=== PATIENT | male | born 1975 | race African-American/Black ===

== ENCOUNTER 2017-09-05 14:10 | Inpatient (IN) | payer OTHER ==
--- NOTE | 2017-09-05 14:24 | PDOC ---
History of Present Illness - General Chief Complaint: Chest Pain Stated Complaint: COUGH Time Seen by Provider: 09/05/17 14:16 - History of Present Illness Initial Comments: 09/05/17 16:07 The patient is a 41 year old male with a history of HIV and positive PPD who presents from [facility] for possible tuberculosis infection. The patient reports a dry cough over the past few months that acutely worsened over the past 2 weeks. He then noticed increased SOB over the past week as well as associated night sweats. He presented to his PCP at [facility] today for evaluate and was found to have infiltrates concerning for tuberculosis on chest plain film and was sent to the ED per Dr. Quintero for admission for further management. He denies any current fevers, chills, chest pain, abdominal pain, nausea, vomiting, or changes with urination or bowel movements. Past History - Past Medical History Allergies/Adverse Reactions: Allergies Allergy/AdvReac Type Severity Reaction Status Date / Time peanuts Allergy Intermediate Rash Uncoded 09/05/17 14:14 Home Medications: Ambulatory Orders Atazanavir Sulfate/Cobicistat [Evotaz 300 mg-150 mg Tablet] 1 each PO DAILY #30 tablet 05/30/17 Emtricitabine/Tenofovir [Truvada -] 1 tab PO DAILY #30 tablet 05/30/17 Anemia: No Asthma: No Cancer: No Cardiac Disorders: No CVA: No COPD: No CHF: No Dementia: No Diabetes: No GI Disorders: No Disorders: No HTN: No Hypercholesterolemia: No Liver Disease: No Seizures: No Thyroid Disease: No - Suicide/Smoking/Psychosocial Hx Smoking History: Never smoked Have you smoked in the past 12 months: No Cigars Per Day: 0 Hx Alcohol Use: No Drug/Substance Use Hx: No Substance Use Type: None Hx Substance Use Treatment: No Review of Systems - Review of Systems Comments:: 09/05/17 16:11 Constitutional: Night sweats. No fevers, chills, fatigue, malaise HEENT: No Rhinorrhea, nasal congestion, visual changes Cardiovascular: No chest pain, syncope, palpitations, lightheadedness Respiratory: SOB, Dry cough. No Hemoptysis, Gastrointestinal: No Abdominal pain, Nausea, Vomiting, Constipation, Diarrhea, Melena Genitourinary: No Dysuria, Frequency, Urgency, Hesitancy, Hematuria, Flank pain Musculoskeletal: No Myalgia, arthralgia Skin: No rashes, bruising, pallor Neurologic: No Headache, Dizziness, Numbness, Weakness, or Tingling *Physical Exam - Vital Signs Last Vital Signs Temp Pulse Resp BP Pulse Ox 98.2 F 92 H 18 148/82 98 09/05/17 14:12 09/05/17 14:12 09/05/17 14:12 09/05/17 14:12 09/05/17 14:12 - Physical Exam Comments: 09/05/17 16:18 General Appearance: Nourished. No Apparent Distress HEENT: EOMI, WANDY. No Pharyngeal Erythema, Tonsillar Exudate, Tonsillar Erythema Neck: No Cervical Lymphadenopathy Respiratory/Chest: Lungs Clear, Normal Breath Sounds. No Crackles, Rales, Rhonchi, Wheezing Cardiovascular: Regular Rhythm, Regular Rate. No Murmur, Gallops, Rubs Gastrointestinal/Abdominal: Normal Bowel Sounds, Soft. No Guarding, Rebound, Tenderness Musculoskeletal: No CVA Tenderness Extremity: Normal Capillary Refill Integumentary: Normal Color, Dry, Warm Neurologic: Fully Oriented, Alert, Normal Mood/Affect, Normal Response, Medical Decision Making - Medical Decision Making 09/05/17 16:18 The patient is a 41 year old male with a history of HIV and positive PPD who presents from [facility] for possible tuberculosis infection. We discussed the case with Dr. Quintero who agrees with inpatient admission for evaluation of tuberculosis and has provided recommendations in his notes. Lab work was drawn outpatient and is currently in our EMR. We will not draw repeat labs here in the ED. We discussed the case with the hospitalist team who agreed to accept the patient for admission. We will follow Dr. Quintero's recommendations and appreciate his consultation. *DC/Admit/Observation/Transfer Diagnosis at time of Disposition: Cough, Tuberculosis - Discharge Dispostion Condition at time of disposition: Guarded Admit: Yes
--- NOTE | 2017-09-05 14:48 | PDOC ---
Attending Attestation - Resident Resident Name: Jose Moscoso - ED Attending Attestation I have performed the following: I have examined & evaluated the patient, The case was reviewed & discussed with the resident, I agree w/resident's findings & plan, Exceptions are as noted - HPI HPI: 41 yo M history HIV, prior positive PPD presenting with suspected TB infection. Patient was referred by [facility] for admission and further workup. He has been having recent dry cough, SOB for past few weeks, associated with night sweats. - Physicial Exam PE: GENERAL: Awake, alert, and fully oriented, in no acute distress HEAD: No signs of trauma EYES: PERRLA, EOMI, sclera anicteric, conjunctiva clear ENT: Auricles normal inspection, hearing grossly normal, nares patent, oropharynx clear without exudates. Moist mucosa. +Temporal wasting. NECK: Normal ROM, supple, no lymphadenopathy, JVD, or masses LUNGS: Breath sounds equal, clear to auscultation bilaterally. No wheezes, and no crackles HEART: Regular rate and rhythm, normal S1 and S2, no murmurs, rubs or gallops ABDOMEN: Soft, nontender, normoactive bowel sounds. No guarding, no rebound. No masses EXTREMITIES: Normal range of motion, no edema. No clubbing or cyanosis. No cords, erythema, or tenderness NEUROLOGICAL: Cranial nerves II through XII grossly intact. Normal speech, normal gait SKIN: Warm, Dry, normal turgor, no rashes or lesions noted. - Medical Decision Making Pt for admission for workup of possible TB. Appreciate ID recommendations. Will admit.
--- NOTE | 2017-09-05 15:28 | PN ---
Progress Note, Physician Chief Complaint: ID This 41 year old [place] male living in [place] sent form clinic for HIV for abnormal chest xray today. HIV pos since the doing well on HAART. T cells in clinic ove 300 and undectable less then 20 copies. He is adherant to med. History of treatment for latent TB in late in [place]. Recent travel to [place] 1 week. Now notes nonproductive couph night sweats weight loss recently ? fever. Also says gets some exertional dyspnea. NO pets drug use alcohol or smoking. LIves alone until recent whenhis spencer came to [place] from [place]. Chest xray today with bilateral interstitial infiltrates ? M TB - Objective Vital Signs: Vital Signs Temperature 98.2 F 09/05/17 14:12 Pulse Rate 92 H 09/05/17 14:12 Respiratory Rate 18 09/05/17 14:12 Blood Pressure 148/82 09/05/17 14:12 O2 Sat by Pulse Oximetry (%) 98 09/05/17 14:12 Constitutional: Yes: No Distress Eyes: Yes: WNL, Conjunctiva Clear Neck: Yes: WNL, Supple. No: Lymphadenopathy Cardiovascular: Yes: Regular Rate and Rhythm, S1, S2. No: Murmur Respiratory: Yes: WNL, Regular, CTA Bilaterally. No: Rales, Rhonchi Gastrointestinal: Yes: WNL, Normal Bowel Sounds, Soft. No: Splenomegaly, Tenderness, Tenderness, Epigastrium, Tenderness, Rebound Edema: No Problem List - Problems (1) Pneumonia Code(s): J18.9 - PNEUMONIA, UNSPECIFIED ORGANISM (2) HIV (human immunodeficiency virus infection) Code(s): Z21 - ASYMPTOMATIC HUMAN IMMUNODEFICIENCY VIRUS INFECTION STATUS Assessment/Plan Laboratory Tests 11/29/16 11/29/16 03/14/17 10:20 10:20 10:20 WBC Hgb Plt Count BUN Creatinine AST ALT Alkaline Phosphatase Absolute CD4 Jackson 302 L 259 L HIV-1 RNA (PCR) <20 03/14/17 05/30/17 05/30/17 10:20 12:15 12:15 WBC Hgb Plt Count BUN Creatinine AST ALT Alkaline Phosphatase Absolute CD4 Jackson 334 L HIV-1 RNA (PCR) <20 <20 09/05/17 09/05/17 12:20 12:20 WBC 3.8 L Hgb 12.3 Plt Count 349 BUN 15 Creatinine 1.4 H AST 23 ALT 26 Alkaline Phosphatase Pending Absolute CD4 Jackson HIV-1 RNA (PCR) Assessment Bilateral interstitial infiltrates ? TB History of Latent TB History of Strongyloides in past HIV stable on meds T cells tohigh for PCP Plan For now no antibiotics CT chest CRP Quant gold Isolation Sputum for PCR and AFB x3 Histo urine Ag Leg Ag Strongyloid Ab Leon MCKOY
--- NOTE | 2017-09-05 15:59 | HP ---
CHIEF COMPLAINT: cough, night sweats PCP: [facility] HISTORY OF PRESENT ILLNESS: 41 yr old man with HIV on HAART referred by pcp for suspected pna/TB on cxray this morning. Pt complains of dry cough for the past 1 year that has progressively worsened during the last two weeks. It is associated with night sweats and worsening exertional dyspnea. Any small effort and tossing in bed at night causes him to become tachypniec and feel like he is not getting enough air. cough has been instigated by laughing, talking, can occur at rest and worse with exertion. He was started on an "inhaler" and an "allergy medication" by his pcp since last year which initally helped with his cough, last used on tuesday with relief. He has been to [place] for 10-day visits in October 2016/dec 2016 and May 2017. he stayed in the city for the majority of the visit and went to the beach for one day. denies mosquito bites, animal exposure or known TB diagnosis in family or friends. He also notes several months of weight loss, he was seen by GI and told he did not have blood in his stool and no further wrk-up was required. Has a good appetite, no change in eating habits. ER course was notable for: (1) placed on isolation (2) CT w/o contrast (3)evaluated by Dr. 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 PAST MEDICAL HISTORY: HIV diagnosed in 's from likely female sexual partner PAST SURGICAL HISTORY: denies Social History: lives with , has no children Smoking:denies Alcohol: rarely, has 1 beer at the most Drugs: denies IVDU or any illicit substances Family History: mother with DM, denies family hx of HTN, cancers Allergies peanuts Allergy (Intermediate, Uncoded 09/05/17 14:14) Rash HOME MEDICATIONS: Home Medications Medication Instructions Recorded Atazanavir Sulfate/Cobicistat 1 each PO DAILY #30 tablet 05/30/17 [Evotaz 300 mg-150 mg Tablet] Emtricitabine/Tenofovir [Truvada -] 1 tab PO DAILY #30 tablet 05/30/17 REVIEW OF SYSTEMS CONSTITUTIONAL: Present: chills, weight change- unintentional loss Absent: fever, , diaphoresis, generalized weakness, malaise, loss of appetite, HEENT: Absent: rhinorrhea, nasal congestion, throat pain, throat swelling, difficulty swallowing, mouth swelling, ear pain, eye pain, visual changes CARDIOVASCULAR: Absent: chest pain, syncope, palpitations, irregular heart rate, lightheadedness , peripheral edema RESPIRATORY: Present: cough, shortness of breath, dyspnea with exertion, Absent: orthopnea, wheezing, stridor, hemoptysis GASTROINTESTINAL: Absent: abdominal pain, abdominal distension, nausea, vomiting, diarrhea, constipation, melena, hematochezia GENITOURINARY: Absent: dysuria, frequency, urgency, hesitancy, hematuria, flank pain, genital pain MUSCULOSKELETAL: Absent: myalgia, arthralgia, joint swelling, back pain, neck pain SKIN: Absent: rash, itching, pallor HEMATOLOGIC/IMMUNOLOGIC: Absent: easy bleeding, easy bruising, lymphadenopathy, frequent infections ENDOCRINE: Absent: unexplained weight gain, heat intolerance, cold intolerance NEUROLOGIC: Absent: headache, focal weakness or paresthesias, dizziness, unsteady gait, seizure, mental status changes, bladder or bowel incontinence PHYSICAL EXAMINATION Vital Signs - 24 hr 09/05/17 14:12 Temperature 98.2 F Pulse Rate 92 H Respiratory 18 Rate Blood Pressure 148/82 O2 Sat by Pulse 98 Oximetry (%) GENERAL: Awake, alert, in no acute distress. thin male HEAD: Normal with no signs of trauma. EYES: Pupils equal, round and reactive to light, extraocular movements intact, sclera anicteric, conjunctiva clear. No lid lag. EARS, NOSE, THROAT: oropharynx clear without exudates. Moist mucous membranes. NECK: Normal range of motion, supple without lymphadenopathy, JVD, or masses. LUNGS: Breath sounds equal, clear to auscultation bilaterally. No wheezes, and no crackles. No accessory muscle use. HEART: Regular rate and rhythm, normal S1 and S2 without murmur, rub or gallop. ABDOMEN: Soft, nontender, not distended, normoactive bowel sounds, no guarding, no rebound, no masses. No hepatomegaly or splenomegaly. MUSCULOSKELETAL: Normal range of motion at all joints. No bony deformities or tenderness. No CVA tenderness. UPPER EXTREMITIES: 2+ radial pulses, warm, well-perfused. No cyanosis. No clubbing. No peripheral edema. LOWER EXTREMITIES: 2+ dp pulses, warm, well-perfused. No calf tenderness. No peripheral edema. NEUROLOGICAL: Cranial nerves II-XII intact. Normal speech. Normal gait. PSYCHIATRIC: Cooperative. Good eye contact. Appropriate mood and affect. SKIN: Warm, dry, normal turgor, no rashes or lesions noted, normal capillary refill. ASSESSMENT/PLAN: 41 yr old man with HIV on HAART referred by pcp due to abnormal cxy for work-up for pna or TB. #Cough - evaluated by Dr. Quintero, work-up for TB pending, defer abx for now - chest CT without contrast - urine legionella/strep, histoplasma, quantiferon gold,strongiloides - sputum culture for AFB, creactive protein levels - airborne precautions for TB #HIV - continue evotaz and truvada #Diet: regular #DVT: encourage ambulation, hep tid Visit type - Emergency Visit Emergency Visit: Yes ED Registration Date: 09/05/17 Care time: The patient presented to the Emergency Department on the above date and was hospitalized for further evaluation of their emergent condition. - New Patient This patient is new to me today: Yes Date on this admission: 09/05/17 - Critical Care Critical Care patient: No
--- NOTE | 2017-09-05 18:34 | PN ---
Teaching Attending Note Name of Resident: Patrick Arnago ATTENDING PHYSICIAN STATEMENT I saw and evaluated the patient. I reviewed the resident's note and discussed the case with the resident. I agree with the resident's findings and plan as documented. SUBJECTIVE: This is a 41 year old man with a history of HIV who was sent to the ER from [facility] for evaluation of an abnormal CXR which showed bilateral interstitial infiltrates. He reports having a worsening non-productive cough, SOB with exertion, weight loss and night sweats. He was previously treated for latent TB ~ 20 yrs ago. He has a history of Strongyloides. He has been to [place] 3 times in the past year. In May, CD4 was 334 and viral load < 20. OBJECTIVE: Vital Signs Period Temp Pulse Resp BP Sys/Chacon Pulse Ox Last 24 Hr 98.2 F 92 18 148/82 98 HEART: S1S2, RRR LUNGS: Clear ABDOMEN: Soft, non-tender, non-distended, normal BS EXTREMITIES: No edema Home Medications Medication Instructions Recorded Emtricitabine/Tenofovir [Truvada -] 1 tab PO DAILY #30 tablet 05/30/17 Atazanavir Sulfate/Cobicistat 1 tab PO DAILY 09/05/17 [Evotaz 300 mg-150 mg Tablet] ASSESSMENT AND PLAN: This is a 41 year old man with a history of HIV, latent TB, Strongyloides who was presented to the ER from the [facility] because of an abnormal CXR showing bilateral interstitial infiltrates associated with night sweats, weight loss, cough and dyspnea on exertion.. 1. Possible pneumonia, possible pulmonary TB - Has cough, night sweats, weight loss, dyspnea on exertion - Has history of latent TB (treated 20 years ago) - ID consult appreciated - Chest CT - C-RP, quantiferon gold, sputum AFB, urine Legionella Ag, Strongyloides Ab, urine Histoplasma Ag ordered - Will hold antibiotics until results of CT available 2. HIV - Continue Truvada, Evotaz
[2017-09-05] MEDS: HEPARIN NA (PORCINE) 5,000 UNITS/ML 1ML VIAL SQ SCH (23:05)
[2017-09-06] MEDS ORDERED: HEPARIN NA (PORCINE) 5,000 UNITS/ML 1ML VIAL ONE (06:13)
[2017-09-06] MEDS: HEPARIN NA (PORCINE) 5,000 UNITS/ML 1ML VIAL SQ SCH ×3 (06:15→22:00)
[2017-09-06] MEDS: EMTRICITABINE 200MG/TENOFOVIR 300MG PO SCH (09:49)
[2017-09-06] MEDS ORDERED: PATIENT'S OWN MEDICATION (NON-FORMULARY) (Atazanavir Sulfate/Cobicistat [Evotaz 300 Mg-150 PO SCH (10:00)
--- NOTE | 2017-09-06 10:01 | PN ---
Physical Exam: INFECTIOUS DISEASE SUBJECTIVE: Patient states that he spit saliva into a collecting cup (?possibly sent to lab) but did not cough and expectorate any sputum. Doing well. No fevers , chills. Not coughing. OBJECTIVE: Vital Signs Period Temp Pulse Resp BP Sys/Chacon Pulse Ox Last 24 Hr 97.9 F-98.2 F 83-89 16-18 104-138/52-78 96-99 GEN: AAOx3, NAD PERRLA: EOMI, PERRLA CV: S1, S2, RRR, no murmur LUNG: CTABL posterior and anterior ABD: Soft, NT, ND, normoactive BS MSK: No edema, no erythema Active Medications Generic Name Dose Route Start Last Admin Trade Name Freq PRN Reason Stop Dose Admin Emtricitabine/Tenofovir 1 tab 09/06/17 10:00 09/06/17 09:49 Truvada PO Not Given DAILY SINDY Heparin Sodium (Porcine) 5,000 unit 09/05/17 22:00 09/06/17 06:15 Heparin - SQ 5,000 unit TID SINDY Administration Non-Formulary Medication 1 each 09/06/17 10:00 Atazanavir Sulfate/Cobicistat [Evotaz 300 Mg-150 Mg Tablet] PO DAILY SINDY Microbiology 09/05/17 16:40 Urine For Antigen Detection Legionella Antigen - Final - NEGATIVE 09/05/17 16:40 Urine For Antigen Detection Streptococcus pneumoniae Antigen (M - Final - NEGATIVE ASSESSMENT/PLAN: # Bilateral Interstitial Infiltrates - ? active TB - History of Latent TB, treated in - CT chest shows bilateral infiltrates + cavitary lesion, ?TB - Patient unable to cough up sputum, consulted Pulmonary for possible bronch - AFB probe ordered - F/u Quantiferon Gold - F/u Strongyloides Ab - Continue respiratory isolation - For now no abx Discussed w/ Dr Alan, will follow. Ita Snowden MD - PGY1 Infectious Disease Visit type - Emergency Visit Emergency Visit: No - New Patient This patient is new to me today: No - Critical Care Critical Care patient: No
[2017-09-06 10:56] VITALS: BMI 19.3
[2017-09-06] MEDS ORDERED: FLU VACCINE QUAD 60 MCG/0.5 ML (MDV 17-18) IM ONE (10:56)
--- NOTE | 2017-09-06 12:08 | CON.PULM ---
Consult Consult Specialty:: PULMONARY Referred by:: Dr. Quintero Reason for Consultation:: pneumonia - History of Present Illness Chief Complaint: cough, shortness of breath History of Present Illness: 41yo male with h/o HIV, latent TB who was admitted with worsening shortness of breath and dry cough x 2 weeks. His cough is nonproductive. He denies any chest pain or palpitations. No subjective fevers or chills but has been experiencing night sweats. Endorses a 5 lb weight loss in the past year. Compliant with his retroviral treatments. He was PPD positive in 1998, treated with a 9 month course and has had annual CXR since then reportedly negative. He was in [place] last in October. Denies any sick contacts. 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 - History Source History Provided By: Patient, Medical Record Limitations to Obtaining History: No Limitations - Past Medical History Infectious Disease: Yes: HIV - Alcohol/Substance Use Hx Alcohol Use: No - Smoking History Smoking history: Never smoked Have you smoked in the past 12 months: No Home Medications - Allergies Allergies/Adverse Reactions: Allergies Allergy/AdvReac Type Severity Reaction Status Date / Time No Known Allergies Allergy Verified 09/05/17 16:49 - Home Medications Home Medications: Ambulatory Orders Emtricitabine/Tenofovir [Truvada -] 1 tab PO DAILY #30 tablet 05/30/17 Atazanavir Sulfate/Cobicistat [Evotaz 300 mg-150 mg Tablet] 1 tab PO DAILY 09/05 Family Disease History - Family Disease History Family Disease History: Diabetes: Grandparent (mat gma hx dm), Mother ( otherwise a&w), Other: Grandparent, Father (dec'd age 74 prostate ca), Brother ( 5 a&w), Sister (5 a&w) Review of Systems - Review of Systems Constitutional: reports: Night Sweats, Unintentional Wgt. Loss. denies: Chills , Fever Eyes: denies: Recent Change in Vision HENT: denies: Nasal Congestion, Throat Pain Neck: denies: Stiffness, Tenderness Cardiovascular: reports: Shortness of Breath. denies: Chest Pain, Edema, Palpitations Respiratory: reports: Cough, SOB on Exertion. denies: Hemoptysis, Wheezing Gastrointestinal: denies: Abdominal Pain, Nausea, Vomiting Genitourinary: denies: Dysuria, Hematuria Neurological: denies: Dizziness, Headache Endocrine: reports: Unexplained Weight Loss Physical Exam Vital Sings: Vital Signs Temperature 98.4 F 09/06/17 10:00 Pulse Rate 85 09/06/17 10:49 Respiratory Rate 18 09/06/17 10:49 Blood Pressure 102/72 09/06/17 10:49 O2 Sat by Pulse Oximetry (%) 98 09/06/17 10:49 Constitutional: Yes: Calm Eyes: Yes: Conjunctiva Clear, EOM Intact HENT: Yes: Atraumatic, Normocephalic Neck: Yes: Supple, Trachea Midline Cardiovascular: Yes: Regular Rate and Rhythm Respiratory: Yes: Regular, CTA Bilaterally ...Clubbing: No Gastrointestinal: Yes: Normal Bowel Sounds, Soft. No: Tenderness Edema: No Neurological: Yes: Alert, Oriented Imaging - Results Chest X-ray: Report Reviewed, Image Reviewed Cat Scan: Report Reviewed, Image Reviewed (multilobar infiltrates/consolidations ) Problem List - Problems (1) Pneumonia Code(s): J18.9 - PNEUMONIA, UNSPECIFIED ORGANISM (2) HIV (human immunodeficiency virus infection) Code(s): Z21 - ASYMPTOMATIC HUMAN IMMUNODEFICIENCY VIRUS INFECTION STATUS Assessment/Plan Pneumonia r/o TB HIV - sputum AFB if he can produce - quantiferon gold - send CD4 count, viral load - scheduled for bronchoscopy with BAL/TBBx tomorrow at 1:30PM - NPO after midnight - hold AM heparin - discussed with pt and at bedside, all questions answered Thank you for this consult David Mariano MD
--- NOTE | 2017-09-06 12:41 | PN ---
Teaching Attending Note Name of Resident: Ita Snowden ATTENDING PHYSICIAN STATEMENT I saw and evaluated the patient. I reviewed the resident's note and discussed the case with the resident. I agree with the resident's findings and plan as documented. SUBJECTIVE: awake, alert breathing non-labored cachectic OBJECTIVE: cor S1S2 lungs clear abdomen soft, non tender no edema ASSESSMENT AND PLAN: Bilateral pneumonitis Cavitary lung disease HIV + Await sputum AFB, Quantiferon, Histo ag For bronchoscopy am
--- NOTE | 2017-09-06 14:30 | PN ---
Physical Exam: SUBJECTIVE: Patient seen and examined at bedside, has chronic non productive cough, but enies any chest pain, sob, N/V/D/C. he is hIV positive and was sent due to atelectasis on his cXr, he has a history of TB treated and recent travel out of country to [facility]. he has lost 5 pound within last year, unintensional, 2 weeks hisoty of nigh sweat, but denies any current fever, chills. OBJECTIVE: Vital Signs Period Temp Pulse Resp BP Sys/Chacon Pulse Ox Last 24 Hr 97.9 F-98.4 F 73-89 16-18 102-138/52-78 96-99 GENERAL: The patient is awake, alert, and fully oriented, in no acute distress. HEAD: Normal with no signs of trauma. EYES:conjunctiva clear. No ptosis. ENT: moist mucous membranes. LUNGS: Breath sounds equal, clear to auscultation bilaterally, no wheezes, no crackles, no accessory muscle use. HEART: Regular rate and rhythm, S1, S2 without murmur, rub or gallop. ABDOMEN: Soft, nontender, nondistended, normoactive bowel sounds, no guarding, no rebound. EXTREMITIES: warm, well-perfused, no edema. NEUROLOGICAL: Good mentation PSYCH: Normal mood, normal affect. SKIN: Warm, dry, no rashes or lesions noted Laboratory Results - last 24 hr 09/05/17 09/06/17 16:30 05:55 C-Reactive Protein 3.8 H 3.1 H D Active Medications Generic Name Dose Route Start Last Admin Trade Name Freq PRN Reason Stop Dose Admin Emtricitabine/Tenofovir 1 tab 09/06/17 10:00 09/06/17 09:49 Truvada PO Not Given DAILY [facility] Heparin Sodium (Porcine) 5,000 unit 09/05/17 22:00 09/06/17 06:15 Heparin - SQ 5,000 unit TID [facility] Administration Non-Formulary Medication 1 each 09/06/17 10:00 Atazanavir Sulfate/Cobicistat [Evotaz 300 Mg-150 Mg Tablet] PO DAILY [facility] Microbiology 09/06/17 17:50 Sputum - Expectorated AFB Smear Concentration - Preliminary 09/06/17 17:50 Sputum - Expectorated Direct Acid Fast Bacilli Smear - Final 09/06/17 17:50 Sputum - Expectorated Mycobacterial Culture - Preliminary 09/07/17 12:30 Serum Cryptococcal Antigen - Preliminary 09/05/17 16:40 Urine For Antigen Detection Legionella Antigen - Final 09/05/17 16:40 Urine For Antigen Detection Streptococcus pneumoniae Antigen (M - Final ASSESSMENT/PLAN: This is a 41 year old man with a history of HIV, latent TB, Strongyloides who was presented to the ER from the [facility] because of an abnormal CXR showing bilateral interstitial infiltrates associated with night sweats, weight loss, cough and dyspnea on exertion.. 1. Possible pneumonia, possible pulmonary TB - Has cough, night sweats, weight loss, dyspnea on exertion - Has history of latent TB (treated 20 years ago) - ID consult appreciated - Chest CT - C-RP, quantiferon gold, sputum AFB, urine Legionella Ag, Strongyloides Ab, urine Histoplasma Ag ordered - Will hold antibiotics until results of CT available 2. HIV - Continue Truman Vergara #DVT: encourage ambulation, hep tid # Dispo - Admit to med surg Visit type - Emergency Visit Emergency Visit: Yes ED Registration Date: 09/05/17 Care time: The patient presented to the Emergency Department on the above date and was hospitalized for further evaluation of their emergent condition. - New Patient This patient is new to me today: Yes Date on this admission: 09/07/17 - Critical Care Critical Care patient: No - Discharge Referral Referred to [facility] Med P.C.: No
--- NOTE | 2017-09-06 18:38 | PN ---
Teaching Attending Note Name of Resident: Ken Childers ATTENDING PHYSICIAN STATEMENT I saw and evaluated the patient. I reviewed the resident's note and discussed the case with the resident. I agree with the resident's findings and plan as documented. SUBJECTIVE:currently asymptomatic. states he had night sweats for the past 2 weeks but none last night. went to [facility] for routine screening where they did routine CXR and was sent here for the results. was in [place] in October , December and April each time for 10 days or less and is unaware if he was in contact with anyone with TB. claims medication compliance. denies CP, SOB, fever , cough, hemoptysis, N/V/C/D, rashes. has insignificant weight loss ( 5 lbs in past year) OBJECTIVE: Last Vital Signs Temp Pulse Resp BP Pulse Ox 98.4 F 85 18 102/72 98 09/06/17 10:00 09/06/17 10:49 09/06/17 10:49 09/06/17 10:49 09/06/17 14:00 General NAD, thin appearing male CV S1 S2 RRR no murmur/rub/gallop Lungs CTA B/L no wheezing/rales/rhonchi Abdomen soft NT/ND Extremiteis no pedal edema, no rashes ASSESSMENT AND PLAN: 41 yo M with PMH HIV, latent TB, Strongyloides who was presented to the ER from the [facility] because of an abnormal CXR showing bilateral interstitial infiltrates associated with night sweats, weight loss, cough and dyspnea on exertion.. 1. B/L pneumonitis- with cavitary lesion(2.3x1.7cm). concern for TB vs PCP. aspiration precautions. no sputum production. NPO for bronchoscopy in the AM. AFB, Quantiferon, Histoplasma, strongiloides. CRP elevated. ID and pulmonary on board. as per ID will hold abx at this time. 2. HIV- Continue Truman Vergara 3. DVT ppx- hep sq
--- NOTE | 2017-09-07 06:56 | PN ---
Physical Exam: SUBJECTIVE: Patient seen and examined at bedside. No acute events overnight. He denies any fever, chills, N/V/D/C. He denies cough. cp, sob. OBJECTIVE: Vital Signs Period Temp Pulse Resp BP Sys/Chacon Pulse Ox Last 24 Hr 98 F-99.5 F 67-91 18-20 95-116/55-77 98-98 GENERAL: The patient is awake, alert, and fully oriented, in no acute distress. HEAD: Normal with no signs of trauma. EYES: sclera anicteric, conjunctiva clear. ENT: moist mucous membranes. LUNGS: Breath sounds equal, clear to auscultation bilaterally, no wheezes, no crackles, no accessory muscle use. HEART: Regular rate and rhythm, S1, S2 without murmur, rub or gallop. ABDOMEN: Soft, nontender, nondistended, normoactive bowel sounds, no guarding, no rebound. EXTREMITIES: warm, well-perfused, no edema. NEUROLOGICAL: good mentation SKIN: Warm, dry, no rashes or lesions noted Active Medications Generic Name Dose Route Start Last Admin Trade Name Freq PRN Reason Stop Dose Admin Emtricitabine/Tenofovir 1 tab 09/06/17 10:00 09/06/17 09:49 Truvada PO Not Given DAILY [facility] Heparin Sodium (Porcine) 5,000 unit 09/05/17 22:00 09/06/17 22:00 Heparin - SQ Not Given TID [facility] Non-Formulary Medication 1 each 09/06/17 10:00 Atazanavir Sulfate/Cobicistat [Evotaz 300 Mg-150 Mg Tablet] PO DAILY [facility] CBC, BMP 09/07/17 05:18 09/07/17 05:18 Microbiology 09/06/17 17:50 Sputum - Expectorated AFB Smear Concentration - Preliminary 09/06/17 17:50 Sputum - Expectorated Direct Acid Fast Bacilli Smear - Final 09/06/17 17:50 Sputum - Expectorated Mycobacterial Culture - Preliminary 09/07/17 12:30 Serum Cryptococcal Antigen - Preliminary 09/05/17 16:40 Urine For Antigen Detection Legionella Antigen - Final 09/05/17 16:40 Urine For Antigen Detection Streptococcus pneumoniae Antigen (M - Final ASSESSMENT/PLAN: This is a 41 year old man with a history of HIV, latent TB, Strongyloides who was presented to the ER from the [facility] because of an abnormal CXR showing bilateral interstitial infiltrates associated with night sweats, weight loss, cough and dyspnea on exertion.. # Possible pneumonia, vs pulmonary TB vs PCP * Has cough, night sweats, weight loss, dyspnea on exertion * Has history of latent TB (treated 20 years ago) * ID consult appreciated * Chest CT caviatry lesion (2.3x1.7cm) * C-RP elevated * quantiferon gold, sputum AFB, urine Legionella Ag, Strongyloides Ab, urine Histoplasma Ag ordere * ID on the board they would like to start TB treatment after bronchoscopy * Bronchoscope was done today with washes of routine cx , AFB and fungus * F/U cytology and pathology # HIV * New HIV regimen * Truvada 1 daily * Tivicay ( Dolutegravir) 50mg day #DVT: * encourage ambulation, hep tid * # Dispo, * Admit to med- surg * continue droplet isolation Visit type - Emergency Visit Emergency Visit: Yes ED Registration Date: 09/05/17 Care time: The patient presented to the Emergency Department on the above date and was hospitalized for further evaluation of their emergent condition. - New Patient This patient is new to me today: Yes Date on this admission: 09/07/17 - Critical Care Critical Care patient: No
[2017-09-07 07:11] LABS: MCH 26.1 pg (25.7-33.7); MCHC 32.3 g/dl (32.0-35.9); MEAN CELL VOLUME 80.6 fl (80-96); MEAN PLT VOLUME 7.6 fl (7.5-11.1); PLATELET COUNT 331 K/MM3 (134-434); RDW 15.3 % (11.9-15.9)
[2017-09-07 07:58] LABS: ANION GAP 8 (8-16); CALCIUM 9.1 mg/dL (8.5-10.1); CO2 29 mmol/L (21-32); GLUCOSE,RANDOM 83 mg/dL (74-106)
[2017-09-07 08:02] LABS: CREATININE 1.3 mg/dL (0.7-1.3)
[2017-09-07] MEDS ORDERED: PT OWN MED DRAWER 7, Y5N ONE (09:08)
[2017-09-07] MEDS: EMTRICITABINE 200MG/TENOFOVIR 300MG PO SCH ×2 (09:31→18:29)
--- NOTE | 2017-09-07 11:59 | PN ---
Progress Note, Physician Chief Complaint: ID Work up for possible TB in progress Afebrile - Current Medication List Current Medications: Active Medications Emtricitabine/Tenofovir (Truvada) 1 tab PO DAILY [facility] Last Admin: 09/07/17 09:31 Dose: Not Given Heparin Sodium (Porcine) (Heparin -) 5,000 unit SQ TID [facility] Last Admin: 09/06/17 22:00 Dose: Not Given Non-Formulary Medication (Atazanavir Sulfate/Cobicistat [Evotaz 300 Mg-150 Mg Tablet]) 1 each PO DAILY [facility] - Objective Vital Signs: Vital Signs Temperature 98 F 09/07/17 09:44 Pulse Rate 78 09/07/17 09:44 Respiratory Rate 18 09/07/17 09:44 Blood Pressure 103/60 09/07/17 09:44 O2 Sat by Pulse Oximetry (%) 98 09/06/17 18:00 Constitutional: Yes: No Distress Neck: Yes: WNL, Supple Cardiovascular: Yes: Regular Rate and Rhythm, S1, S2. No: Murmur Respiratory: Yes: WNL, Regular, CTA Bilaterally Gastrointestinal: Yes: WNL, Normal Bowel Sounds, Soft. No: Tenderness, Rebound Labs: CBC, BMP 09/07/17 05:18 09/07/17 05:18 Problem List - Problems (1) Pneumonia Code(s): J18.9 - PNEUMONIA, UNSPECIFIED ORGANISM (2) HIV (human immunodeficiency virus infection) Code(s): Z21 - ASYMPTOMATIC HUMAN IMMUNODEFICIENCY VIRUS INFECTION STATUS Assessment/Plan Microbiology 09/05/17 16:40 Urine For Antigen Detection Legionella Antigen - Final 09/05/17 16:40 Urine For Antigen Detection Streptococcus pneumoniae Antigen (M - Final 09/06/17 17:50 Sputum - Expectorated AFB Smear Concentration - Preliminary 09/06/17 17:50 Sputum - Expectorated Mycobacterial Culture - Preliminary Laboratory Tests 09/05/17 09/05/17 09/07/17 16:30 16:30 05:18 WBC 4.0 Hgb 12.2 Plt Count 331 C-Reactive Protein 3.8 H Urine Histoplasma Ag Pending Strongyloides IgG Ab Pending Assessment Suspect pulmonary TB Work up pending Plan Quant gold BAL today with AFB PCR PROBE smear AFB and AFB culture Routine bacteria and fungal culture Cryptococcal Antigen Plan to start TB meds today INH 300mg daily Rifambutin 300 mg daily ( avoid rifampin drug drug interactions) Ethambutol 15mg /kg/day = 800mg PZA 25mg/kg/day = 1250mg B6 50mg /day NEW HIV regimen Truvada 1 daily Tivicay ( Dolutegravir) 50mg day Leon MCKOY
--- NOTE | 2017-09-07 12:22 | PN ---
Teaching Attending Note Name of Resident: Ken Childers ATTENDING PHYSICIAN STATEMENT I saw and evaluated the patient. I reviewed the resident's note and discussed the case with the resident. I agree with the resident's findings and plan as documented. SUBJECTIVE:asymptomatic. denies Cp, cough, fever, chills, N/V/C/D OBJECTIVE: Last Vital Signs Temp Pulse Resp BP Pulse Ox 98 F 78 18 103/60 98 09/07/17 09:44 09/07/17 09:44 09/07/17 09:44 09/07/17 09:44 09/07/17 10:00 General NAD, thin appearing male Lungs CTA B/L no wheezing/rales/rhonchi ASSESSMENT AND PLAN: 41 yo M with PMH HIV, latent TB, Strongyloides who was presented to the ER from the [facility] because of an abnormal CXR showing bilateral interstitial infiltrates associated with night sweats, weight loss, cough and dyspnea on exertion.. 1. B/L pneumonitis- with cavitary lesion(2.3x1.7cm). concern for TB vs PCP. aspiration precautions. no sputum production. NPO for bronchoscopy today. AFB, Quantiferon, Histoplasma, strongiloides. CRP elevated. ID and pulmonary on board. as per ID will hold abx at this time. 2. HIV- Continue Truman Vergara 3. DVT ppx- hep sq
[2017-09-07] MEDS ORDERED: LORazepam 2 MG/ML SDV VIAL IVPUSH ONE (12:45)
--- NOTE | 2017-09-07 12:58 | PN ---
Progress Note, Physician History of Present Illness: PULMONARY ALERT,NAD,-SOB,-COUGH - Current Medication List Current Medications: Active Medications Emtricitabine/Tenofovir (Truvada) 1 tab PO DAILY [facility] Last Admin: 09/07/17 09:31 Dose: Not Given Heparin Sodium (Porcine) (Heparin -) 5,000 unit SQ TID [facility] Last Admin: 09/06/17 22:00 Dose: Not Given Non-Formulary Medication (Atazanavir Sulfate/Cobicistat [Evotaz 300 Mg-150 Mg Tablet]) 1 each PO DAILY [facility] - Objective Vital Signs: Vital Signs Temperature 98 F 09/07/17 09:44 Pulse Rate 78 09/07/17 09:44 Respiratory Rate 18 09/07/17 09:44 Blood Pressure 103/60 09/07/17 09:44 O2 Sat by Pulse Oximetry (%) 98 09/07/17 10:00 Constitutional: Yes: Calm, Thin Eyes: Yes: WNL HENT: Yes: WNL Neck: Yes: WNL Cardiovascular: Yes: Regular Rate and Rhythm, S1, S2 Respiratory: Yes: CTA Bilaterally Gastrointestinal: Yes: Normal Bowel Sounds, Soft Extremities: Yes: WNL Edema: No Labs: CBC, BMP 09/07/17 05:18 09/07/17 05:18 Assessment/Plan Problem List - Problems (1) Pneumonia Code(s): J18.9 - PNEUMONIA, UNSPECIFIED ORGANISM (2) HIV (human immunodeficiency virus infection) Code(s): Z21 - ASYMPTOMATIC HUMAN IMMUNODEFICIENCY VIRUS INFECTION STATUS Assessment/Plan Pneumonia r/o TB HIV - sputum AFB - quantiferon gold - send CD4 count, viral load - flex bronchoscopy with bal,tbbx today DR CARRENO
--- NOTE | 2017-09-07 13:15 | PN ---
Physical Exam: SUBJECTIVE: Patient seen and examined. Denies fevers, chills, CP, SOB. Denies cough. Still unable to expectorate sputum. Bronch today afternoon OBJECTIVE: Vital Signs Period Temp Pulse Resp BP Sys/Chacon Pulse Ox Last 24 Hr 98 F-99.5 F 67-91 18-20 95-116/55-66 98-98 GEN: AAOx3, NAD PERRLA: EOMI, PERRLA CV: S1, S2, RRR, no murmur LUNG: CTABL posterior and anterior ABD: Soft, NT, ND, normoactive BS MSK: No edema, no erythema Active Medications Generic Name Dose Route Start Last Admin Trade Name Freq PRN Reason Stop Dose Admin Emtricitabine/Tenofovir 1 tab 09/06/17 10:00 09/07/17 09:31 Truvada PO Not Given DAILY [facility] Heparin Sodium (Porcine) 5,000 unit 09/05/17 22:00 09/06/17 22:00 Heparin - SQ Not Given TID [facility] Non-Formulary Medication 1 each 09/06/17 10:00 Atazanavir Sulfate/Cobicistat [Evotaz 300 Mg-150 Mg Tablet] PO DAILY [facility] CBC, BMP 09/07/17 05:18 09/07/17 05:18 Microbiology 09/05/17 16:40 Urine For Antigen Detection Legionella Antigen - Final 09/05/17 16:40 Urine For Antigen Detection Streptococcus pneumoniae Antigen (M - Final 09/06/17 17:50 Sputum - Expectorated AFB Smear Concentration - Preliminary 09/06/17 17:50 Sputum - Expectorated Mycobacterial Culture - Preliminary ASSESSMENT/PLAN: 41 year old Trin[place] M with PMHx of HIV on HAART, history of latent TB (treated in ), [place] presented to ER from HIV clinic due to abnormal CXR, found to have bilateral interstitial infiltrates with cavitary lesion. # Bilateral Interstitial Infiltrates w/ Cavitary lesion - high possibility of active TB vs less likely PNA - History of Latent TB, treated in - Going for Bronchoscopy today afternoon - Due to high risk for TB, will start treatment (Rifabutin, INH/B6, PZA, Ethambutol), dosage as per Dr. Quintero's note - Start new HIV regimen: Truvada QD + Tivicay 50mg QD - F/u Quantiferon Gold - Continue respiratory isolation Reviewed w/ Dr Quintero. Will follow. Ita Snowden MD - PGY1 Infectious Disease Visit type - Emergency Visit Emergency Visit: No - New Patient This patient is new to me today: No - Critical Care Critical Care patient: No - Discharge Referral Referred to [facility] Med P.C.: No
[2017-09-07 13:26] LABS: QFT TB AG - NIL VALUE 4.67; QUANT MITOGEN VALUE 7.92; QUANT NIL VALUE 0.06; QUANT TB AG VALUE 4.73
--- NOTE | 2017-09-07 15:16 | PROC ---
Procedure Note Procedure: BRONCHOSCOPY NOTE After discussing the risks and benefits of the procedure including bleeding and pneumothorax, informed consent was obtained. Pt was placed under general anesthesia and intubated with size 8.0 ETT by anesthesia. JNS Towers video bronchoscope was passed via the ETT and the airways were examined down to the subsegmental level. The elkin was sharp, there were no endobronchial lesions noted in either lung. The left upper lobe lingular segment was brushed with a cytology brush, multiple transbronchial biopsies were taken with forceps under fluoroscopy and bronchoalveolar washes were lavaged. Bronchoscope then withdrawn and procedure terminated. No immediate complications. Pre-op Dx: r/o TB Post-op Dx: same Plan: - f/u washes for routine culture, AFB and fungus - f/u cytology and pathology - further recommendations pending above David Mariano MD
[2017-09-07] MEDS ORDERED: ONDANSETRON 4 MG/2 ML VIAL IVPUSH PRN (15:28)
[2017-09-07] MEDS ORDERED: LACTATED RINGERS SOLUTION 1,000 ML IV SCH (15:30)
--- NOTE | 2017-09-08 06:47 | PN ---
Physical Exam: SUBJECTIVE: Patient seen and examined at bedside. had low blood pressure since the procedure yesterday. He denies any lightheadedness, dizziness, palpitation, he denies any N/V/D/C. denies fever, chills , cough, cp, sob. OBJECTIVE: Vital Signs Period Temp Pulse Resp BP Sys/Chacon Pulse Ox Last 24 Hr 97.4 F-98.4 F 68-88 16-28 88-139/49-99 97-99 GENERAL: The patient is awake, alert, and fully oriented, in no acute distress. HEAD: Normal with no signs of trauma. EYES: sclera anicteric, conjunctiva clear. ENT: moist mucous membranes. LUNGS: Breath sounds equal, clear to auscultation bilaterally, no wheezes, no crackles, no accessory muscle use. HEART: Regular rate and rhythm, S1, S2 without murmur, rub or gallop. ABDOMEN: Soft, nontender, nondistended, normoactive bowel sounds, no guarding, no rebound EXTREMITIES: warm, well-perfused, no edema. NEUROLOGICAL: good mentation SKIN: Warm, dry, normal turgor, no rashes or lesions noted Laboratory Results - last 24 hr 09/05/17 09/07/17 09/07/17 22:50 05:18 05:18 WBC 4.0 RBC 4.69 Hgb 12.2 Hct 37.8 MCV 80.6 MCH 26.1 MCHC 32.3 RDW 15.3 Plt Count 331 MPV 7.6 Sodium 141 Potassium 4.4 Chloride 104 Carbon Dioxide 29 Anion Gap 8 BUN 16 Creatinine 1.3 Random Glucose 83 Calcium 9.1 TB Test (QFT) Positive Active Medications Generic Name Dose Route Start Last Admin Trade Name Freq PRN Reason Stop Dose Admin Emtricitabine/Tenofovir 1 tab 09/08/17 10:00 09/07/17 18:29 Truvada PO 1 tab DAILY [facility] Administration Fentanyl 50 mcg 09/07/17 15:28 Sublimaze Injection - IVPUSH 09/10/17 15:29 [id number] PRN PAIN Heparin Sodium (Porcine) 5,000 unit 09/07/17 22:00 Heparin - SQ TID [facility] Lactated Ringer's 1,000 mls @ 125 mls/hr 09/07/17 15:30 09/07/17 17:05 Lactated Ringers Solution IV 125 mls/hr ASDIR [facility] Administration Non-Formulary Medication 1 each 09/08/17 08:00 Atazanavir Sulfate/Cobicistat [Evotaz 300 Mg-150 Mg Tablet] PO DAILY@0800 [facility] 09/06/17 17:50 Sputum - Expectorated AFB Smear Concentration - Preliminary 09/06/17 17:50 Sputum - Expectorated Direct Acid Fast Bacilli Smear - Final 09/06/17 17:50 Sputum - Expectorated Mycobacterial Culture - Preliminary 09/07/17 12:30 Serum Cryptococcal Antigen - Preliminary 09/05/17 16:40 Urine For Antigen Detection Legionella Antigen - Final 09/05/17 16:40 Urine For Antigen Detection Streptococcus pneumoniae Antigen (M - Final CBC, BMP 09/08/17 05:25 09/08/17 05:25 ASSESSMENT/PLAN: This is a 41 year old man with a history of HIV, latent TB, Strongyloides who was presented to the ER from the [facility] because of an abnormal CXR showing bilateral interstitial infiltrates associated with night sweats, weight loss, cough and dyspnea on exertion.. # pulmonary TB * denies cough, night sweats, weight loss, dyspnea on exertion * Has history of latent TB (treated 20 years ago) * Chest CT cavity lesion (2.3x1.7cm) * C-RP elevated * quantiferon gold +, sputum AFB, urine Legionella Ag -, Strongyloides Ab, urine Histoplasma ,Ag ordere * ID on the board , started TB treatment today (Rifampin, INH/B6, PZA, Ethambutol) * Bronchoscope was done yesterday 09/07 with washes of routine cx , AFB and fungus * F/U cytology and pathology #Hypotensive 2/2 anesthesia , improved * BP today 88-139/49-99 * Improved with ringer lactate IV fluids @ 125 cc # HIV * New HIV regimen * Truvada 1 daily * Tivicay ( Dolutegravir) 50mg day #DVT: * encourage ambulation, hep tid * # Dispo, * Admit to med- surg * continue droplet isolation * [facility] notified by infection control. Visit type - Emergency Visit Emergency Visit: Yes ED Registration Date: 09/05/17 Care time: The patient presented to the Emergency Department on the above date and was hospitalized for further evaluation of their emergent condition. - New Patient This patient is new to me today: No - Critical Care Critical Care patient: No - Discharge Referral Referred to [facility] Med P.C.: No
[2017-09-08] MEDS ORDERED: PATIENT'S OWN MEDICATION (NON-FORMULARY) (Atazanavir Sulfate/Cobicistat [Evotaz 300 Mg-150 PO SCH (08:00)
[2017-09-08 08:01] LABS: MCH 25.6 pg (25.7-33.7); MEAN CELL VOLUME 79.8 fl (80-96); MEAN PLT VOLUME 7.2 fl (7.5-11.1); PLATELET COUNT 321 K/MM3 (134-434); RDW 15.3 % (11.9-15.9); WHITE BLOOD COUNT 5.7 K/mm3 (4.0-10.0)
[2017-09-08 08:26] LABS: ANION GAP 7 (8-16); CALCIUM 8.8 mg/dL (8.5-10.1); CO2 31 mmol/L (21-32); CREATININE 1.1 mg/dL (0.7-1.3); GLUCOSE,RANDOM 76 mg/dL (74-106)
[2017-09-08] MEDS: EMTRICITABINE 200MG/TENOFOVIR 300MG PO SCH (09:36)
--- NOTE | 2017-09-08 09:46 | PN ---
Physical Exam: SUBJECTIVE: Patient seen and examined. Doing well post bronchoscopy. No CP, no SOB. OBJECTIVE: Vital Signs Period Temp Pulse Resp BP Sys/Chacon Pulse Ox Last 24 Hr 97 F-98.4 F 68-88 16-28 88-139/49-99 97-99 GEN: AAOx3, NAD PERRLA: EOMI, PERRLA CV: S1, S2, RRR, no murmur LUNG: CTABL posterior and anterior ABD: Soft, NT, ND, normoactive BS MSK: No edema, no erythema Laboratory Results - last 24 hr 09/05/17 09/08/17 09/08/17 22:50 05:25 05:25 WBC 5.7 D RBC 4.47 Hgb 11.4 L Hct 35.7 MCV 79.8 L MCH 25.6 L MCHC 32.0 RDW 15.3 Plt Count 321 MPV 7.2 L Sodium 141 Potassium 4.8 Chloride 103 Carbon Dioxide 31 Anion Gap 7 L BUN 17 Creatinine 1.1 Random Glucose 76 Calcium 8.8 TB Test (QFT) Positive Active Medications Generic Name Dose Route Start Last Admin Trade Name Freq PRN Reason Stop Dose Admin Emtricitabine/Tenofovir 1 tab 09/08/17 10:00 09/08/17 09:36 Truvada PO 1 tab DAILY [facility] Administration Fentanyl 50 mcg 09/07/17 15:28 Sublimaze Injection - IVPUSH 09/10/17 15:29 [id number] PRN PAIN Heparin Sodium (Porcine) 5,000 unit 09/07/17 22:00 Heparin - SQ TID [facility] Lactated Ringer's 1,000 mls @ 125 mls/hr 09/07/17 15:30 09/07/17 17:05 Lactated Ringers Solution IV 125 mls/hr ASDIR [facility] Administration Non-Formulary Medication 1 each 09/08/17 08:00 09/08/17 09:35 Atazanavir Sulfate/Cobicistat [Evotaz 300 Mg-150 Mg Tablet] PO 1 each DAILY@0800 [facility] Administration Microbiology 09/06/17 17:50 Sputum - Expectorated Direct Acid Fast Bacilli Smear - Final RARE ACID FAST BACILLI SEEN 09/07/17 15:30 Bronchial Brushings AFB Smear Concentration - Preliminary 09/07/17 15:30 Bronchial Brushings Mycobacterial Culture - Preliminary 09/07/17 12:30 Serum Cryptococcal Antigen - Preliminary 09/06/17 17:50 Sputum - Expectorated AFB Smear Concentration - Preliminary 09/06/17 17:50 Sputum - Expectorated Mycobacterial Culture - Preliminary ASSESSMENT/PLAN: 41 year old [place] M with PMHx of HIV on HAART, history of latent TB (treated in ), [place] presented to ER from HIV clinic due to abnormal CXR, found to have bilateral interstitial infiltrates with cavitary lesion. # Probable Active Tuberculosis - Rare acid fast bacilli seen in prior sputum culture - Will start treatment today (Rifampin, INH/B6, PZA, Ethambutol) - S/p bronchoscopy, f/u AFB smear + culture - Changed HIV treatment - Continue respiratory isolation Discussed w/ Dr Quintero. Will follow. Ita Snowden MD - PGY1 Infectious Disease Visit type - Emergency Visit Emergency Visit: No - New Patient This patient is new to me today: No - Critical Care Critical Care patient: No - Discharge Referral Referred to [facility] Med P.C.: No
--- NOTE | 2017-09-08 10:50 | PN ---
Progress Note, Physician History of Present Illness: PULMONARY POST BRONCHOSCOPY COURSE STABLE,ALERT,NAD,-SOB ,-HEMOPTYSIS - Current Medication List Current Medications: Active Medications Emtricitabine/Tenofovir (Truvada) 1 tab PO DAILY [facility] Last Admin: 09/08/17 09:36 Dose: 1 tab Fentanyl (Sublimaze Injection -) 50 mcg IVPUSH [id number] PRN PRN Reason: PAIN Stop: 09/10/17 15:29 Heparin Sodium (Porcine) (Heparin -) 5,000 unit SQ TID [facility] Lactated Ringer's (Lactated Ringers Solution) 1,000 mls @ 125 mls/hr IV ASDIR [facility] Last Admin: 09/07/17 17:05 Dose: 125 mls/hr Non-Formulary Medication (Atazanavir Sulfate/Cobicistat [Evotaz 300 Mg-150 Mg Tablet]) 1 each PO DAILY@0800 [facility] Last Admin: 09/08/17 09:35 Dose: 1 each - Objective Vital Signs: Vital Signs Temperature 97 F L 09/08/17 07:43 Pulse Rate 68 09/08/17 07:43 Respiratory Rate 18 09/08/17 07:43 Blood Pressure 103/65 09/08/17 07:43 O2 Sat by Pulse Oximetry (%) 97 09/07/17 22:00 Constitutional: Yes: Calm, Thin Eyes: Yes: WNL HENT: Yes: WNL Neck: Yes: WNL Cardiovascular: Yes: Regular Rate and Rhythm, S1, S2 Respiratory: Yes: CTA Bilaterally Gastrointestinal: Yes: Normal Bowel Sounds, Soft Extremities: Yes: WNL Edema: No Labs: CBC, BMP 09/08/17 05:25 09/08/17 05:25 Assessment/Plan Problem List - Problems (1) Pneumonia Code(s): J18.9 - PNEUMONIA, UNSPECIFIED ORGANISM (2) HIV (human immunodeficiency virus infection) Code(s): Z21 - ASYMPTOMATIC HUMAN IMMUNODEFICIENCY VIRUS INFECTION STATUS Assessment/Plan Pneumonia r/o TB HIV - send CD4 count, viral load - check bx,+ bronchial washing DR CARRENO
--- NOTE | 2017-09-08 11:32 | PN ---
Progress Note (short form) - Note Progress Note: Anesthesia postop note 41 y/o M s/p GA for bronchoscopy POD#1, vss, aaox3, no complaints. No anesthesia complications.
--- NOTE | 2017-09-08 11:42 | PN ---
Teaching Attending Note Name of Resident: Ken Childers ATTENDING PHYSICIAN STATEMENT I saw and evaluated the patient. I reviewed the resident's note and discussed the case with the resident. I agree with the resident's findings and plan as documented. SUBJECTIVE:asymptomatic. denies CP, SOB, fever, chills, night sweats OBJECTIVE: Last Vital Signs Temp Pulse Resp BP Pulse Ox 97 F L 78 18 111/64 100 09/08/17 07:43 09/08/17 10:00 09/08/17 10:00 09/08/17 10:00 09/08/17 10:00 General NAD, thin appearing male Lungs CTA B/L no wheezing/rales/rhonchi ASSESSMENT AND PLAN: 41 yo M with PMH HIV, latent TB, Strongyloides who was presented to the ER from the [facility] because of an abnormal CXR showing bilateral interstitial infiltrates associated with night sweats, weight loss, cough and dyspnea on exertion.. 1. +TB-s/p Bronch on 09/07. quantiferon +. AFB + for acid fast bacilli x1. will be started on TB medications today. [facility] notified by infection control. will f/u cx from bronchoscopy. ID and pulmonary on board. airbone isolation 2. HIV- home HARRT therapy may need to be adjusted with addition of TB medications. will defer to ID 3. DVT ppx- hep sq
[2017-09-08] MEDS ORDERED: RIFABUTIN 150 MG CAPSULE PO SCH (12:00)
[2017-09-08] MEDS ORDERED: PT OWN MED DRAWER 7, Y5N ONE ×2 (12:08→14:07)
--- NOTE | 2017-09-08 13:06 | EKG ---
Test Reason : Blood Pressure : / mmHG Vent. Rate : 075 BPM Atrial Rate : 075 BPM P-R Int : 156 ms QRS Dur : 090 ms QT Int : 374 ms P-R-T Axes : 066 068 046 degrees QTc Int : 417 ms NORMAL SINUS RHYTHM NORMAL ECG WHEN COMPARED WITH ECG OF 05-SEP-2017 10:15, NO SIGNIFICANT CHANGE WAS FOUND Confirmed by CORNELIUS REILLY MD ([id number]) on 09/08/2017 1:06:03 PM Referred By: Confirmed By:CORNELIUS REILLY MD
[2017-09-08] MEDS: PYRIDOXINE HCL (B-6) 50 MG TABLET (FP) PO SCH (14:20)
[2017-09-08] MEDS: ISONIAZID 300 MG TABLET (FP) PO SCH (14:21)
[2017-09-08] MEDS: ETHAMBUTOL HCL 400 MG TABLET PO SCH (14:21)
[2017-09-08 14:24] LABS: QUANTIFERON GOLD POSITIVE
[2017-09-08] MEDS: HEPARIN NA (PORCINE) 5,000 UNITS/ML 1ML VIAL SQ SCH ×2 (14:27→21:52)
[2017-09-08] MEDS: PYRAZINAMIDE 500 MG TABLET PO SCH (15:46)
[2017-09-09] MEDS: HEPARIN NA (PORCINE) 5,000 UNITS/ML 1ML VIAL SQ SCH ×3 (05:44→21:45)
[2017-09-09] MEDS ORDERED: PT OWN MED DRAWER 7, Y5N ONE (10:48)
[2017-09-09] MEDS: PYRIDOXINE HCL (B-6) 50 MG TABLET (FP) PO SCH (10:50)
[2017-09-09] MEDS: ISONIAZID 300 MG TABLET (FP) PO SCH (10:50)
[2017-09-09] MEDS: PYRAZINAMIDE 500 MG TABLET PO SCH (10:50)
[2017-09-09] MEDS: ETHAMBUTOL HCL 400 MG TABLET PO SCH (10:51)
[2017-09-09] MEDS: EMTRICITABINE 200MG/TENOFOVIR 300MG PO SCH (10:51)
--- NOTE | 2017-09-09 11:02 | PN ---
Physical Exam: SUBJECTIVE: Patient seen and examined this AM. Doing well, no fevers, chills, CP , SOB. OBJECTIVE: Vital Signs Period Temp Pulse Resp BP Sys/Chacon Pulse Ox Last 24 Hr 97.8 F-98.6 F 72-90 18-20 94-107/54-60 99 GEN: AAOx3, NAD PERRLA: EOMI, PERRLA CV: S1, S2, RRR, no murmur LUNG: CTABL posterior and anterior ABD: Soft, NT, ND, normoactive BS MSK: No edema, no erythema Active Medications Generic Name Dose Route Start Last Admin Trade Name Freq PRN Reason Stop Dose Admin Emtricitabine/Tenofovir 1 tab 09/08/17 10:00 09/09/17 10:51 Truvada PO 1 tab DAILY SINDY Administration Ethambutol HCl 800 mg 09/08/17 12:00 09/09/17 10:51 Myambutol - PO 800 mg DAILY SINDY Administration Heparin Sodium (Porcine) 5,000 unit 09/07/17 22:00 09/09/17 05:44 Heparin - SQ Not Given TID SINDY Isoniazid 300 mg 09/08/17 12:00 09/09/17 10:50 Inh - PO 300 mg DAILY SINDY Administration Pyrazinamide 1,250 mg 09/08/17 11:45 09/09/17 10:50 Pyrazinamide - PO 1,250 mg DAILY SINDY Administration Pyridoxine HCl 50 mg 09/08/17 12:00 09/09/17 10:50 Vitamin B6 - PO 50 mg DAILY SINDY Administration Rifabutin 300 mg 09/09/17 10:00 Mycobutin - PO DAILY SINDY CBC, BMP 09/08/17 05:25 09/08/17 05:25 Microbiology 09/06/17 17:50 Sputum - Expectorated Direct Acid Fast Bacilli Smear - Final - MTB COMPLEX PRESENT 09/07/17 15:30 Bronchial Brushings JACK Preparation - Preliminary 09/07/17 15:30 Bronchial Brushings Fungal Culture - Preliminary 09/07/17 15:30 Bronchial Brushings AFB Smear Concentration - Preliminary 09/07/17 15:30 Bronchial Brushings Mycobacterial Culture - Preliminary 09/07/17 12:30 Serum Cryptococcal Antigen - Preliminary 09/06/17 17:50 Sputum - Expectorated AFB Smear Concentration - Preliminary 09/06/17 17:50 Sputum - Expectorated Mycobacterial Culture - Preliminary ASSESSMENT/PLAN: 41 year old [place] M with PMHx of HIV on HAART, history of latent TB (treated in ), [place] presented to ER from HIV clinic due to abnormal CXR, found to have bilateral interstitial infiltrates with cavitary lesion. # Active Tuberculosis - sputum culture +MTB complex - Tx started 09/08 (INH/B6, PZA, Ethambutol) - will start Rifabutin today - S/p bronchoscopy - HIV meds now Truvada + Isentress (we do not carry Tivicay) - Continue respiratory isolation Discussed w/ Dr Lara. Will follow. Ita Snowden MD - PGY1 Infectious Disease Visit type - Emergency Visit Emergency Visit: No - New Patient This patient is new to me today: No - Critical Care Critical Care patient: No - Discharge Referral Referred to [facility] Med P.C.: No
--- NOTE | 2017-09-09 11:53 | PN ---
Physical Exam: SUBJECTIVE: Patient seen and examined at bedside. No acute events over night. denies any fever, chills, night sweats N/V/D/C. Blood pressure is wnl. OBJECTIVE: Vital Signs Period Temp Pulse Resp BP Sys/Chacon Pulse Ox Last 24 Hr 97.8 F-98.6 F 72-90 18-20 94-107/54-68 99 GENERAL: The patient is awake, alert, and fully oriented, in no acute distress. HEAD: Normal with no signs of trauma. EYES: sclera anicteric, conjunctiva clear. ENT: moist mucous membranes. LUNGS: Breath sounds equal, clear to auscultation bilaterally, no wheezes, no crackles, no accessory muscle use. HEART: Regular rate and rhythm, S1, S2 without murmur, rub or gallop. ABDOMEN: Soft, nontender, nondistended, normoactive bowel sounds, no guarding, no rebound EXTREMITIES: warm, well-perfused, no edema. NEUROLOGICAL: good mentation SKIN: Warm, dry, normal turgor, no rashes or lesions noted Laboratory Results - last 24 hr 09/05/17 22:50 TB Test (QFT) Positive Active Medications Generic Name Dose Route Start Last Admin Trade Name Freq PRN Reason Stop Dose Admin Emtricitabine/Tenofovir 1 tab 09/08/17 10:00 09/09/17 10:51 Truvada PO 1 tab DAILY SINDY Administration Ethambutol HCl 800 mg 09/08/17 12:00 09/09/17 10:51 Myambutol - PO 800 mg DAILY SINDY Administration Heparin Sodium (Porcine) 5,000 unit 09/07/17 22:00 09/09/17 05:44 Heparin - SQ Not Given TID SINDY Isoniazid 300 mg 09/08/17 12:00 09/09/17 10:50 Inh - PO 300 mg DAILY SINDY Administration Pyrazinamide 1,250 mg 09/08/17 11:45 09/09/17 10:50 Pyrazinamide - PO 1,250 mg DAILY SINDY Administration Pyridoxine HCl 50 mg 09/08/17 12:00 09/09/17 10:50 Vitamin B6 - PO 50 mg DAILY SINDY Administration Rifabutin 300 mg 09/09/17 10:00 Mycobutin - PO DAILY [facility] CBC, BMP 09/08/17 05:25 09/08/17 05:25 Microbiology 09/07/17 15:30 Bronchial Brushings JACK Preparation - Preliminary 09/07/17 15:30 Bronchial Brushings Fungal Culture - Preliminary 09/07/17 15:30 Bronchial Brushings AFB Smear Concentration - Preliminary 09/07/17 15:30 Bronchial Brushings Mycobacterial Culture - Preliminary 09/06/17 17:50 Sputum - Expectorated AFB Smear Concentration - Preliminary 09/06/17 17:50 Sputum - Expectorated Direct Acid Fast Bacilli Smear - Final 09/06/17 17:50 Sputum - Expectorated Mycobacterial Culture - Preliminary 09/07/17 12:30 Serum Cryptococcal Antigen - Preliminary 09/05/17 16:40 Urine For Antigen Detection Legionella Antigen - Final 09/05/17 16:40 Urine For Antigen Detection Streptococcus pneumoniae Antigen (M - Final ASSESSMENT/PLAN: This is a 41 year old man with a history of HIV, latent TB, Strongyloides who was presented to the ER from the [facility] because of an abnormal CXR showing bilateral interstitial infiltrates associated with night sweats, weight loss, cough and dyspnea on exertion.. # pulmonary TB * denies cough, night sweats, weight loss, dyspnea on exertion * Has history of latent TB (treated 20 years ago) * Chest CT cavity lesion (2.3x1.7cm) * C-RP elevated * quantiferon gold +, sputum AFB, urine Legionella Ag -, Strongyloides Ab, urine Histoplasma ,Ag ordere * ID on the board , started TB treatment today (Rifampin, INH/B6, PZA, Ethambutol) * Bronchoscope was done yesterday 09/07 with washes of routine cx , AFB and fungus * F/U cytology and pathology #Hypotensive 2/2 anesthesia , improved * BP today 88-139/49-99 * Improved with ringer lactate IV fluids @ 125 cc # HIV * New HIV regimen * Truvada 1 daily * Tivicay ( Dolutegravir) 50mg day # Constipation, * last BM 3 days ago * start Miralax and colace today #DVT: * encourage ambulation, hep tid * # Dispo, * Admit to med- surg * continue droplet isolation * [facility] notified by infection control. Visit type - Emergency Visit Emergency Visit: Yes ED Registration Date: 09/05/17 Care time: The patient presented to the Emergency Department on the above date and was hospitalized for further evaluation of their emergent condition. - New Patient This patient is new to me today: No - Critical Care Critical Care patient: No
--- NOTE | 2017-09-09 12:16 | PN ---
Progress Note (short form) - Note Progress Note: No acute events overnight. No hemoptysi. No CP or SOB. Intake & Output 09/06/17 09/07/17 09/08/17 09/09/17 23:59 23:59 23:59 23:59 Intake Total 500 1810 260 Output Total 550 600 800 Balance -606 819 2387 -540 Weight 128 lb 120 lb Last Vital Signs Temp Pulse Resp BP Pulse Ox 98.5 F 89 20 103/68 99 09/09/17 10:00 09/09/17 10:00 09/09/17 10:00 09/09/17 10:00 09/08/17 21:00 Active Medications Emtricitabine/Tenofovir (Truvada) 1 tab PO DAILY [facility] Last Admin: 09/09/17 10:51 Dose: 1 tab Ethambutol HCl (Myambutol -) 800 mg PO DAILY [facility] Last Admin: 09/09/17 10:51 Dose: 800 mg Heparin Sodium (Porcine) (Heparin -) 5,000 unit SQ TID [facility] Last Admin: 09/09/17 05:44 Dose: Not Given Isoniazid (Inh -) 300 mg PO DAILY [facility] Last Admin: 09/09/17 10:50 Dose: 300 mg Pyrazinamide (Pyrazinamide -) 1,250 mg PO DAILY [facility] Last Admin: 09/09/17 10:50 Dose: 1,250 mg Pyridoxine HCl (Vitamin B6 -) 50 mg PO DAILY [facility] Last Admin: 09/09/17 10:50 Dose: 50 mg Rifabutin (Mycobutin -) 300 mg PO DAILY [facility] Constitutional: Yes: NAD Eyes: Yes: WNL HENT: Yes: WNL Neck: Yes: WNL Cardiovascular: Yes: Regular Rate and Rhythm, S1, S2 Respiratory: Yes: CTA Bilaterally Gastrointestinal: Yes: Normal Bowel Sounds, Soft Extremities: Yes: WNL Edema: No Labs: Laboratory Results - last 24 hr 09/05/17 22:50 TB Test (QFT) Positive - Problems (1) Pneumonia Code(s): J18.9 - PNEUMONIA, UNSPECIFIED ORGANISM (2) HIV (human immunodeficiency virus infection) Code(s): Z21 - ASYMPTOMATIC HUMAN IMMUNODEFICIENCY VIRUS INFECTION STATUS Assessment/Plan Pneumonia r/o active TB HIV Follow Bronchoscopic sampling Isolation Meds as ordered by ID Dr Reid
--- NOTE | 2017-09-09 13:07 | PN ---
Teaching Attending Note Name of Resident: Ken Childers ATTENDING PHYSICIAN STATEMENT I saw and evaluated the patient. I reviewed the resident's note and discussed the case with the resident. I agree with the resident's findings and plan as documented. SUBJECTIVE:currently asymptomatic. denies Cp, SOB, fever, chills, N/V/C/D OBJECTIVE: Last Vital Signs Temp Pulse Resp BP Pulse Ox 98.5 F 89 20 103/68 99 09/09/17 10:00 09/09/17 10:00 09/09/17 10:00 09/09/17 10:00 09/08/17 21:00 General NAD, thin appearing male Lungs CTA B/L no wheezing/rales/rhonchi ASSESSMENT AND PLAN: 41 yo M with PMH HIV, latent TB, Strongyloides who was presented to the ER from the [facility] because of an abnormal CXR showing bilateral interstitial infiltrates associated with night sweats, weight loss, cough and dyspnea on exertion.. 1. Active TB-s/p Bronch on 09/07. quantiferon +. AFB + for acid fast bacilli x1. started on TB medications (INH, ETH, RIF, B6). [facility] notified by infection control. will f/u cx from bronchoscopy. ID and pulmonary on board. airbone isolation 2. HIV- HARRT adjusted 3. DVT ppx- hep sq 4. can d/c tele monitoring
[2017-09-09] MEDS: RIFABUTIN 150 MG CAPSULE PO SCH (14:11)
[2017-09-09 14:14] LABS: QFT TB AG - NIL VALUE 3.44 IU/mL (.); QUANT MITOGEN VALUE >10.00 IU/mL (.); QUANT NIL VALUE 0.08 IU/mL (.); QUANT TB AG VALUE 3.52 IU/mL (.)
[2017-09-09 14:14] LABS: STRONGILOIDES AB-Ig-G Negative (Negative)
--- NOTE | 2017-09-09 15:04 | PN ---
Teaching Attending Note Name of Resident: Ita Snowden ATTENDING PHYSICIAN STATEMENT I saw and evaluated the patient. I reviewed the resident's note and discussed the case with the resident. I agree with the resident's findings and plan as documented. SUBJECTIVE: no complaints OBJECTIVE: Vital Signs Period Temp Pulse Resp BP Sys/Chacon Pulse Ox Last 24 Hr 97.8 F-98.6 F 72-90 18-20 94-103/54-68 99 cor-rrr lungs clear abd soft,nt ext no edema CBC, BMP 09/08/17 05:25 09/08/17 05:25 Microbiology 09/07/17 15:30 Bronchial Brushings JACK Preparation - Preliminary 09/07/17 15:30 Bronchial Brushings Fungal Culture - Preliminary 09/07/17 15:30 Bronchial Brushings AFB Smear Concentration - Preliminary 09/07/17 15:30 Bronchial Brushings Mycobacterial Culture - Preliminary 09/06/17 17:50 Sputum - Expectorated AFB Smear Concentration - Preliminary 09/06/17 17:50 Sputum - Expectorated Direct Acid Fast Bacilli Smear - Final 09/06/17 17:50 Sputum - Expectorated Mycobacterial Culture - Preliminary 09/07/17 12:30 Serum Cryptococcal Antigen - Preliminary 09/05/17 16:40 Urine For Antigen Detection Legionella Antigen - Final 09/05/17 16:40 Urine For Antigen Detection Streptococcus pneumoniae Antigen (M - Final ASSESSMENT AND PLAN: MTB- continue INH/Rifabutin/ethambutal/PZA HIV- no tivacay available, will treat with truvada/isentress REPLACED BY [facility] f/u he lives in the [place] repeat LFTs in am will need f/u sputum afb next week
--- NOTE | 2017-09-09 15:14 | PATH ---
Cytology Non-Gynecological Report Patient Name: FLACO COHEN [facility]. Rec. #: [id number] /Age/Gender: 1975 (Age: 41) / M Account: [id number] Location: 4 W TELEMETRY U Taken: 09/07/2017 Received: 09/08/2017 Reported: 09/09/2017 Physicians: Fidelia Hogan M.D. Richard Wu, M.D. Specimen(s) Received A: BRONCHIAL BRUSHINGS FROM LEFT UPPER LOBE B: BRONCHOALVEOLAR LAVAGE FROM LEFT UPPER LOBE Clinical History Rule out tuberculosis Final Diagnosis A. LUNG, LEFT UPPER LOBE, BRONCHIAL BRUSHING: SATISFACTORY FOR EVALUATION. BENIGN (NO MALIGNANT CELLS IDENTIFIED). BENIGN AND REACTIVE RESPIRATORY EPITHELIAL CELLS AND ALVEOLAR MACROPHAGES PRESENT. NO GRANULOMAS IDENTIFIED. B. LUNG, LEFT UPPER LOBE, BRONCHIAL LAVAGE: SATISFACTORY FOR EVALUATION. BENIGN (NO MALIGNANT CELLS IDENTIFIED). BENIGN AND REACTIVE RESPIRATORY EPITHELIAL CELLS AND ALVEOLAR MACROPHAGES PRESENT, ALONG WITH SCATTERED NEUTROPHILS. NO GRANULOMAS IDENTIFIED. ACID FAST STAIN IS NEGATIVE. Comment: Also see concurrent lung biopsy [id number]. Electronically Signed David Cabrera M.D. Gross Description A. Approximately 50 cc of bloody fluid received fixed in 50% alcohol. Three cytofunnels prepared. B. Approximately 50 cc of a peach colored fluid received fixed in 50% alcohol. Two cytofunnels and one cellblock prepared. Acid fast stain is prepared on the cell block.
--- NOTE | 2017-09-09 15:14 | PATH ---
Surgical Pathology Report Patient Name: FLACO COHEN Med. Rec. #: [id number] /Age/Gender: 1975 (Age: 41) / M Account: [id number] Location: 4 W TELEMETRY U Taken: 09/07/2017 Received: 09/08/2017 Reported: 09/09/2017 Physicians: Fidelia Leigh M.D. Specimen(s) Received LUNG BIOPSY LEFT UPPER LOBE Clinical History Tuberculosis, cough Final Diagnosis LUNG, LEFT UPPER LOBE, BRONCHIAL BIOPSY: BENIGN BRONCHIAL MUCOSA WITH REACTIVE CHANGES. NO GRANULOMAS IDENTIFIED. ACID FAST AND FUNGAL (PAS) STAINS ARE NEGATIVE. Comment: Recommend correlation with clinical and radiologic findings and follow up as clinically indicated. Electronically Signed David Cabrera M.D. Gross Description Received in formalin labeled "lung biopsy left upper lobe," is a 0.4 x 0.4 x 0.1 cm aggregate of rojas soft tissue fragments. The formalin is filtered and the specimen is entirely submitted in one cassette. /09/08/2017 [facility]09/08/2017
[2017-09-09 15:24] LABS: QUANTIFERON GOLD Positive (Negative)
[2017-09-09] MEDS: POLYETHYLENE GLYCOL 3350 119 GM BTL PO SCH (16:23)
[2017-09-09] MEDS: RALTEGRAVIR POTASSIUM 400 MG TAB PO SCH (21:40)
[2017-09-09] MEDS: DOCUSATE SODIUM 100 MG CAPSULE (FP) PO SCH (21:40)
[2017-09-10] MEDS: HEPARIN NA (PORCINE) 5,000 UNITS/ML 1ML VIAL SQ SCH ×3 (05:54→22:27)
[2017-09-10 08:26] LABS: ALBUMIN 2.9 g/dl (3.4-5.0); ALK PHOS 136 U/L (45-117); ANION GAP 5 (8-16); BILIRUBIN,TOTAL 0.3 mg/dL (0.2-1.0); CALCIUM 9.2 mg/dL (8.5-10.1); CO2 30 mmol/L (21-32); CREATININE 1.3 mg/dL (0.7-1.3); GLUCOSE,RANDOM 78 mg/dL (74-106); SGOT/AST 28 U/L (15-37); SGPT/ALT 30 U/L (12-78)
--- NOTE | 2017-09-10 09:28 | PN ---
Progress Note (short form) - Note Progress Note: ID Conntinues on Tb regimen and ART Selected Entries 09/10/17 06:00 Temperature 98.8 F Pulse Rate 73 Respiratory 18 Rate Blood Pressure 97/57 Microbiology 09/07/17 15:30 Bronchial Brushings AFB Smear Concentration - Final 09/06/17 17:50 Sputum - Expectorated Direct Acid Fast Bacilli Smear - Final 09/05/17 16:40 Urine For Antigen Detection Legionella Antigen - Final 09/05/17 16:40 Urine For Antigen Detection Streptococcus pneumoniae Antigen (M - Final 09/07/17 15:30 Bronchial Brushings Mycobacterial Culture - Preliminary 09/07/17 15:30 Bronchial Brushings JACK Preparation - Preliminary 09/07/17 15:30 Bronchial Brushings Fungal Culture - Preliminary 09/06/17 17:50 Sputum - Expectorated AFB Smear Concentration - Preliminary 09/06/17 17:50 Sputum - Expectorated Mycobacterial Culture - Preliminary Laboratory Tests 09/05/17 09/06/17 09/07/17 16:30 05:55 12:10 WBC Hgb Hct Plt Count BUN Creatinine Creat Clearance w eGFR Urine Histoplasma Ag Pending Strongyloides IgG Ab Negative TB Test (QFT) Positive H 09/08/17 09/10/17 05:25 05:35 WBC 5.7 D Hgb 11.4 L Hct 35.7 Plt Count 321 BUN 19 H Creatinine 1.3 Creat Clearance w eGFR > 60 Urine Histoplasma Ag Strongyloides IgG Ab TB Test (QFT) Assessment HIV with pulmonary M TB Plan Typically 2 weeks would be duration of treatment inpatient prior to discharge Look for diminution of AFB on smear but only few seen initially Repeat smear next week [facility] involved Leon MCKOY Problem List - Problems (1) Pneumonia Code(s): J18.9 - PNEUMONIA, UNSPECIFIED ORGANISM (2) HIV (human immunodeficiency virus infection) Code(s): Z21 - ASYMPTOMATIC HUMAN IMMUNODEFICIENCY VIRUS INFECTION STATUS
[2017-09-10] MEDS ORDERED: PT OWN MED DRAWER 7, Y5N ONE ×3 (11:46→22:15)
[2017-09-10] MEDS: EMTRICITABINE 200MG/TENOFOVIR 300MG PO SCH (11:56)
[2017-09-10] MEDS: RIFABUTIN 150 MG CAPSULE PO SCH (11:57)
[2017-09-10] MEDS: ETHAMBUTOL HCL 400 MG TABLET PO SCH (11:58)
[2017-09-10] MEDS: POLYETHYLENE GLYCOL 3350 119 GM BTL PO SCH (11:58)
[2017-09-10] MEDS: ISONIAZID 300 MG TABLET (FP) PO SCH (11:59)
[2017-09-10] MEDS: RALTEGRAVIR POTASSIUM 400 MG TAB PO SCH ×2 (12:00→22:27)
[2017-09-10] MEDS: PYRAZINAMIDE 500 MG TABLET PO SCH (12:00)
[2017-09-10] MEDS: PYRIDOXINE HCL (B-6) 50 MG TABLET (FP) PO SCH (12:01)
--- NOTE | 2017-09-10 12:23 | PN ---
Progress Note (short form) - Note Progress Note: asymptomatic. denies CP, SOB, fever, chills, cough, N/V/C/D Current Medications Generic Name Dose Route Start Last Admin Trade Name Chelo PRN Reason Stop Dose Admin Docusate Sodium 300 mg 09/09/17 22:00 09/09/17 21:40 Colace - PO Not Given HS SINDY Emtricitabine/Tenofovir 1 tab 09/08/17 10:00 09/10/17 11:56 Truvada PO 1 tab DAILY SINDY Administration Ethambutol HCl 800 mg 09/08/17 12:00 09/10/17 11:58 Myambutol - PO 800 mg DAILY SINDY Administration Heparin Sodium (Porcine) 5,000 unit 09/07/17 22:00 09/10/17 05:54 Heparin - SQ Not Given TID SINDY Isoniazid 300 mg 09/08/17 12:00 09/10/17 11:59 Inh - PO 300 mg DAILY SINDY Administration Polyethylene Glycol 17 gm 09/09/17 16:00 09/10/17 11:58 Miralax (For Daily Use) - PO Not Given DAILY SINDY Pyrazinamide 1,250 mg 09/08/17 11:45 09/10/17 12:00 Pyrazinamide - PO 1,250 mg DAILY SINDY Administration Pyridoxine HCl 50 mg 09/08/17 12:00 09/10/17 12:01 Vitamin B6 - PO 50 mg DAILY SINDY Administration Raltegravir 400 mg 09/09/17 22:00 09/10/17 12:00 Isentress - PO 400 mg BID SINDY Administration Rifabutin 300 mg 09/09/17 10:00 09/10/17 11:57 Mycobutin - PO 300 mg DAILY SINDY Administration Last Vital Signs Temp Pulse Resp BP Pulse Ox 98.8 F 73 20 97/57 98 09/10/17 06:00 09/10/17 06:00 09/10/17 08:00 09/10/17 06:00 09/10/17 08:00 General NAD, thin appearing male CV S1 S2 + Lungs CTA B/L no wheezing/rales/rhonchi CMP Sodium 137 mmol/L (136-145) 09/10/17 05:35 Potassium 4.7 mmol/L (3.5-5.1) 09/10/17 05:35 Chloride 102 mmol/L (98-107) 09/10/17 05:35 Carbon Dioxide 30 mmol/L (21-32) 09/10/17 05:35 Anion Gap 5 (8-16) L 09/10/17 05:35 BUN 19 mg/dL (7-18) H 09/10/17 05:35 Creatinine 1.3 mg/dL (0.7-1.3) 09/10/17 05:35 Creat Clearance w eGFR > 60 (>60) 09/10/17 05:35 Calcium 9.2 mg/dL (8.5-10.1) 09/10/17 05:35 Total Bilirubin 0.3 mg/dL (0.2-1.0) D 09/10/17 05:35 AST 28 U/L (15-37) D 09/10/17 05:35 ALT 30 U/L (12-78) 09/10/17 05:35 Alkaline Phosphatase 136 U/L (45-117) H 09/10/17 05:35 Total Protein 7.0 g/dl (6.4-8.2) 09/10/17 05:35 Albumin 2.9 g/dl (3.4-5.0) L 09/10/17 05:35 Microbiology 09/07/17 15:30 AFB Smear Concentration - Final Bronchial Brushings Mycobacterial Culture - Preliminary ASSESSMENT AND PLAN: 41 yo M with PMH HIV, latent TB, Strongyloides who was presented to the ER from the [facility] because of an abnormal CXR showing bilateral interstitial infiltrates associated with night sweats, weight loss, cough and dyspnea on exertion.. 1. Active TB-s/p Bronch on 09/07. quantiferon +. AFB + for acid fast bacilli x1. started on TB medications (INH, ETH, RIF, B6). [facility] notified by infection control. will f/u cx from bronchoscopy. ID and pulmonary on board. airbone isolation 2. HIV- HARRT adjusted 3. DVT ppx- hep sq Visit type - Emergency Visit Emergency Visit: Yes ED Registration Date: 09/05/17 Care time: The patient presented to the Emergency Department on the above date and was hospitalized for further evaluation of their emergent condition. - New Patient This patient is new to me today: No - Critical Care Critical Care patient: No - Discharge Referral [facility]erred [facility] Med P.C.: No
[2017-09-10] MEDS: DOCUSATE SODIUM 100 MG CAPSULE (FP) PO SCH (22:28)
[2017-09-11] MEDS: HEPARIN NA (PORCINE) 5,000 UNITS/ML 1ML VIAL SQ SCH ×3 (06:00→21:23)
--- NOTE | 2017-09-11 09:29 | PN ---
Progress Note, Physician Chief Complaint: TB meds & ART Minimal complaints - Current Medication List Current Medications: Active Medications Docusate Sodium (Colace -) 300 mg PO HS [facility] Last Admin: 09/10/17 22:28 Dose: Not Given Emtricitabine/Tenofovir (Truvada) 1 tab PO DAILY [facility] Last Admin: 09/10/17 11:56 Dose: 1 tab Ethambutol HCl (Myambutol -) 800 mg PO DAILY [facility] Last Admin: 09/10/17 11:58 Dose: 800 mg Heparin Sodium (Porcine) (Heparin -) 5,000 unit SQ TID [facility] Last Admin: 09/11/17 06:00 Dose: 5,000 unit Isoniazid (Inh -) 300 mg PO DAILY [facility] Last Admin: 09/10/17 11:59 Dose: 300 mg Polyethylene Glycol (Miralax (For Daily Use) -) 17 gm PO DAILY [facility] Last Admin: 09/10/17 11:58 Dose: Not Given Pyrazinamide (Pyrazinamide -) 1,250 mg PO DAILY [facility] Last Admin: 09/10/17 12:00 Dose: 1,250 mg Pyridoxine HCl (Vitamin B6 -) 50 mg PO DAILY [facility] Last Admin: 09/10/17 12:01 Dose: 50 mg Raltegravir (Isentress -) 400 mg PO BID [facility] Last Admin: 09/10/17 22:27 Dose: 400 mg Rifabutin (Mycobutin -) 300 mg PO DAILY [facility] Last Admin: 09/10/17 11:57 Dose: 300 mg - Objective Vital Signs: Vital Signs Temperature 98.4 F 09/11/17 02:00 Pulse Rate 68 09/11/17 02:00 Respiratory Rate 18 09/11/17 02:00 Blood Pressure 90/54 09/11/17 02:00 O2 Sat by Pulse Oximetry (%) 99 09/10/17 20:20 Constitutional: Yes: Well Nourished, No Distress Eyes: Yes: WNL, Conjunctiva Clear HENT: Yes: WNL, Atraumatic Neck: Yes: WNL, Supple Cardiovascular: Yes: Regular Rate and Rhythm, S1, S2. No: Murmur Respiratory: Yes: WNL, Regular, CTA Bilaterally Gastrointestinal: Yes: WNL, Normal Bowel Sounds, Soft. No: Tenderness, Tenderness, Epigastrium Labs: CBC, BMP 09/08/17 05:25 09/10/17 05:35 Problem List - Problems (1) Pneumonia Code(s): J18.9 - PNEUMONIA, UNSPECIFIED ORGANISM (2) HIV (human immunodeficiency virus infection) Code(s): Z21 - ASYMPTOMATIC HUMAN IMMUNODEFICIENCY VIRUS INFECTION STATUS Assessment/Plan Microbiology 09/07/17 15:30 Bronchial Brushings AFB Smear Concentration - Final 09/06/17 17:50 Sputum - Expectorated Direct Acid Fast Bacilli Smear - Final 09/05/17 16:40 Urine For Antigen Detection Legionella Antigen - Final 09/05/17 16:40 Urine For Antigen Detection Streptococcus pneumoniae Antigen (M - Final 09/07/17 15:30 Bronchial Brushings Mycobacterial Culture - Preliminary 09/07/17 15:30 Bronchial Brushings JACK Preparation - Preliminary 09/07/17 15:30 Bronchial Brushings Fungal Culture - Preliminary 09/07/17 12:30 Serum Cryptococcal Antigen - Preliminary 09/06/17 17:50 Sputum - Expectorated AFB Smear Concentration - Preliminary 09/06/17 17:50 Sputum - Expectorated Mycobacterial Culture - Preliminary Laboratory Tests 09/07/17 09/08/17 09/10/17 12:10 05:25 05:35 WBC 5.7 D Hgb 11.4 L Hct 35.7 Plt Count 321 BUN 19 H Creatinine 1.3 ALT 30 TB Test (QFT) Positive H Assessment M TB and HIV infection Plan Same meds [facility] contact this week Leon MCKOY
[2017-09-11] MEDS: RIFABUTIN 150 MG CAPSULE PO SCH (09:43)
[2017-09-11] MEDS: PYRAZINAMIDE 500 MG TABLET PO SCH (09:43)
[2017-09-11] MEDS: EMTRICITABINE 200MG/TENOFOVIR 300MG PO SCH (09:43)
[2017-09-11] MEDS: PYRIDOXINE HCL (B-6) 50 MG TABLET (FP) PO SCH (09:44)
[2017-09-11] MEDS: ETHAMBUTOL HCL 400 MG TABLET PO SCH (09:45)
[2017-09-11] MEDS: ISONIAZID 300 MG TABLET (FP) PO SCH (09:46)
[2017-09-11] MEDS: POLYETHYLENE GLYCOL 3350 119 GM BTL PO SCH (09:46)
[2017-09-11] MEDS: RALTEGRAVIR POTASSIUM 400 MG TAB PO SCH ×2 (09:47→21:23)
--- NOTE | 2017-09-11 12:08 | PN ---
Progress Note (short form) - Note Progress Note: asymptomatic. denies CP, SOB, fever, chills, cough, N/V/C/D Current Medications Generic Name Dose Route Start Last Admin Trade Name Chelo PRN Reason Stop Dose Admin Docusate Sodium 300 mg 09/09/17 22:00 09/10/17 22:28 Colace - PO Not Given HS SINDY Emtricitabine/Tenofovir 1 tab 09/08/17 10:00 09/11/17 09:43 Truvada PO 1 tab DAILY SINDY Administration Ethambutol HCl 800 mg 09/08/17 12:00 09/11/17 09:45 Myambutol - PO 800 mg DAILY SINDY Administration Heparin Sodium (Porcine) 5,000 unit 09/07/17 22:00 09/11/17 06:00 Heparin - SQ 5,000 unit TID SINDY Administration Isoniazid 300 mg 09/08/17 12:00 09/11/17 09:46 Inh - PO 300 mg DAILY SINDY Administration Polyethylene Glycol 17 gm 09/09/17 16:00 09/11/17 09:46 Miralax (For Daily Use) - PO 17 gm DAILY SINDY Administration Pyrazinamide 1,250 mg 09/08/17 11:45 09/11/17 09:43 Pyrazinamide - PO 1,250 mg DAILY SINDY Administration Pyridoxine HCl 50 mg 09/08/17 12:00 09/11/17 09:44 Vitamin B6 - PO 50 mg DAILY SINDY Administration Raltegravir 400 mg 09/09/17 22:00 09/11/17 09:47 Isentress - PO 400 mg BID SINDY Administration Rifabutin 300 mg 09/09/17 10:00 09/11/17 09:43 Mycobutin - PO 300 mg DAILY SINDY Administration Last Vital Signs Temp Pulse Resp BP Pulse Ox 98 F 74 18 94/50 98 09/11/17 09:00 09/11/17 09:00 09/11/17 09:00 09/11/17 09:00 09/11/17 09:00 General NAD, thin appearing male CV S1 S2 + Lungs CTA B/L no wheezing/rales/rhonchi CMP Sodium 137 mmol/L (136-145) 09/10/17 05:35 Potassium 4.7 mmol/L (3.5-5.1) 09/10/17 05:35 Chloride 102 mmol/L (98-107) 09/10/17 05:35 Carbon Dioxide 30 mmol/L (21-32) 09/10/17 05:35 Anion Gap 5 (8-16) L 09/10/17 05:35 BUN 19 mg/dL (7-18) H 09/10/17 05:35 Creatinine 1.3 mg/dL (0.7-1.3) 09/10/17 05:35 Creat Clearance w eGFR > 60 (>60) 09/10/17 05:35 Calcium 9.2 mg/dL (8.5-10.1) 09/10/17 05:35 Total Bilirubin 0.3 mg/dL (0.2-1.0) D 09/10/17 05:35 AST 28 U/L (15-37) D 09/10/17 05:35 ALT 30 U/L (12-78) 09/10/17 05:35 Alkaline Phosphatase 136 U/L (45-117) H 09/10/17 05:35 Total Protein 7.0 g/dl (6.4-8.2) 09/10/17 05:35 Albumin 2.9 g/dl (3.4-5.0) L 09/10/17 05:35 ASSESSMENT AND PLAN: 41 yo M with PMH HIV, latent TB, Strongyloides who was presented to the ER from the [facility] because of an abnormal CXR showing bilateral interstitial infiltrates associated with night sweats, weight loss, cough and dyspnea on exertion.. 1. Active TB-s/p Bronch on 09/07. quantiferon +. AFB + for acid fast bacilli x2. on TB medications (INH, ETH, RIF, B6). will need periodic monitoring of liver functioning. [facility] notified by infection control. will f/u cx from bronchoscopy. ID and pulmonary on board. airbone isolation 2. HIV- HARRT adjusted 3. DVT ppx- hep sq Visit type - Emergency Visit Emergency Visit: Yes ED Registration Date: 09/05/17 Care time: The patient presented to the Emergency Department on the above date and was hospitalized for further evaluation of their emergent condition. - New Patient This patient is new to me today: No - Critical Care Critical Care patient: No - Discharge Referral Referred to [facility] Med P.C.: No
[2017-09-11] MEDS ORDERED: PT OWN MED DRAWER 7, Y5N ONE (19:55)
[2017-09-11] MEDS: DOCUSATE SODIUM 100 MG CAPSULE (FP) PO SCH (21:24)
[2017-09-12] MEDS: HEPARIN NA (PORCINE) 5,000 UNITS/ML 1ML VIAL SQ SCH ×2 (06:12→13:25)
--- NOTE | 2017-09-12 07:49 | PN ---
Physical Exam: SUBJECTIVE: Doing well this AM. States he has red urine, mentioned that it was a sfx of one of his TB meds. Otherwise denies N/V, abd paino, joint pain, vision changes, CP, SOB, cough OBJECTIVE: Vital Signs Period Temp Pulse Resp BP Sys/Chacon Pulse Ox Last 24 Hr 98 F-98.7 F 73-81 18-20 94-104/49-78 98-99 GEN: AAOx3, NAD, lying comfortably in bed HEENT: PERRLA, EOMi CV: S1, S2, RRR LUNG: CTAB: ABD: Soft, NT, ND, normoactive BS MSK: No edema, no erythema NEURO: No sensation or MSK deficits Laboratory Last Values WBC 5.7 K/mm3 (4.0-10.0) D 09/08/17 05:25 RBC 4.47 M/mm3 (4.00-5.60) 09/08/17 05:25 Hgb 11.4 GM/dL (11.7-16.9) L 09/08/17 05:25 Hct 35.7 % (35.4-49) 09/08/17 05:25 MCV 79.8 fl (80-96) L 09/08/17 05:25 MCH 25.6 pg (25.7-33.7) L 09/08/17 05:25 MCHC 32.0 g/dl (32.0-35.9) 09/08/17 05:25 RDW 15.3 % (11.9-15.9) 09/08/17 05:25 Plt Count 321 K/MM3 (134-434) 09/08/17 05:25 MPV 7.2 fl (7.5-11.1) L 09/08/17 05:25 Sodium 137 mmol/L (136-145) 09/10/17 05:35 Potassium 4.7 mmol/L (3.5-5.1) 09/10/17 05:35 Chloride 102 mmol/L (98-107) 09/10/17 05:35 Carbon Dioxide 30 mmol/L (21-32) 09/10/17 05:35 Anion Gap 5 (8-16) L 09/10/17 05:35 BUN 19 mg/dL (7-18) H 09/10/17 05:35 Creatinine 1.3 mg/dL (0.7-1.3) 09/10/17 05:35 Creat Clearance w eGFR > 60 (>60) 09/10/17 05:35 Random Glucose 78 mg/dL (74-106) 09/10/17 05:35 Calcium 9.2 mg/dL (8.5-10.1) 09/10/17 05:35 Total Bilirubin 0.3 mg/dL (0.2-1.0) D 09/10/17 05:35 AST 28 U/L (15-37) D 09/10/17 05:35 ALT 30 U/L (12-78) 09/10/17 05:35 Alkaline Phosphatase 136 U/L (45-117) H 09/10/17 05:35 C-Reactive Protein 3.1 MG/DL (0.00-0.3) H D 09/06/17 05:55 Total Protein 7.0 g/dl (6.4-8.2) 09/10/17 05:35 Albumin 2.9 g/dl (3.4-5.0) L 09/10/17 05:35 Strongyloides IgG Ab Negative (Negative) 09/06/17 05:55 TB Test (QFT) Positive (Negative) H 09/07/17 12:10 Active Medications Generic Name Dose Route Start Last Admin Trade Name Freq PRN Reason Stop Dose Admin Docusate Sodium 300 mg 09/09/17 22:00 09/11/17 21:24 Colace - PO Not Given HS SINDY Emtricitabine/Tenofovir 1 tab 09/08/17 10:00 09/11/17 09:43 Truvada PO 1 tab DAILY SINDY Administration Ethambutol HCl 800 mg 09/08/17 12:00 09/11/17 09:45 Myambutol - PO 800 mg DAILY SINDY Administration Heparin Sodium (Porcine) 5,000 unit 09/07/17 22:00 09/12/17 06:12 Heparin - SQ 5,000 unit TID SINDY Administration Isoniazid 300 mg 09/08/17 12:00 09/11/17 09:46 Inh - PO 300 mg DAILY SINDY Administration Polyethylene Glycol 17 gm 09/09/17 16:00 09/11/17 09:46 Miralax (For Daily Use) - PO 17 gm DAILY SINDY Administration Pyrazinamide 1,250 mg 09/08/17 11:45 09/11/17 09:43 Pyrazinamide - PO 1,250 mg DAILY SINDY Administration Pyridoxine HCl 50 mg 09/08/17 12:00 09/11/17 09:44 Vitamin B6 - PO 50 mg DAILY SINDY Administration Raltegravir 400 mg 09/09/17 22:00 09/11/17 21:23 Isentress - PO 400 mg BID SINDY Administration Rifabutin 300 mg 09/09/17 10:00 09/11/17 09:43 Mycobutin - PO 300 mg DAILY SINDY Administration ASSESSMENT/PLAN: 41 year old [place] M with PMHx of HIV on HAART, history of latent TB (treated in ), [place] presented to ER from HIV clinic due to abnormal CXR, found to have bilateral interstitial infiltrates with cavitary lesion. # Active TB Quantiferon+, Sputum +MTB complex, s/p bronch 09/07, [facility] notified - Tx started 09/08 (Rifabutin, INH, B6, PZA, Ethambutol), no side sfx, LFTs stable # HIV - HAART meds Truvada + Isentress (we dont carry Tivicay) # Constipation - Continue daily miralax # FEN - No IVF, elect stable, Regular diet # PPx - Lovenox SQ # Dispo - [facility] notified by infection control. Will need 3 negative AFB smears prior to leaving, must be at least 8 hours apart. [facility] to do home evaluations to secure alternative living arrangements. Will encourage patients to expectorate. Continue airborne isolation Ita Snowden MD - PGY1 Internal Medicine Visit type - Emergency Visit Emergency Visit: No - New Patient This patient is new to me today: No - Critical Care Critical Care patient: No - Discharge Referral Referred to [facility] Med P.C.: No
--- NOTE | 2017-09-12 08:35 | CONSULT ---
Consultation: REQUESTING PROVIDER: CONSULT REQUEST: We have been asked to medically evaluate this patient for ( specify). HISTORY OF PRESENT ILLNESS: Patient is seen and examined at bed side. He denies any fever, chills, Night sweats, cough, cp, sob, N,V. PHYSICAL EXAMINATION Vital Signs - 24 hr 09/11/17 09/11/17 09/11/17 09:00 14:58 18:00 Temperature 98 F 98.3 F 98.5 F Pulse Rate 74 76 81 Respiratory 18 18 19 Rate Blood Pressure 94/50 96/62 99/64 O2 Sat by Pulse 98 Oximetry (%) 09/11/17 09/12/17 20:22 06:00 Temperature 98.7 F Pulse Rate 73 76 Respiratory 20 20 Rate Blood Pressure 104/78 94/49 O2 Sat by Pulse 99 Oximetry (%) GENERAL: Awake, alert, and fully oriented, in no acute distress. HEAD: Normal with no signs of trauma. EYES: sclera anicteric, conjunctiva clear. EARS, NOSE, THROAT: Moist mucous membranes. LUNGS: Breath sounds equal, clear to auscultation bilaterally. No wheezes, and no crackles. No accessory muscle use. HEART: Regular rate and rhythm, normal S1 and S2 without murmur, rub or gallop. ABDOMEN: Soft, nontender, not distended, normoactive bowel sounds, no guarding, no rebound, no masses. No hepatomegaly or splenomegaly. LOWER EXTREMITIES:warm, well-perfused. No calf tenderness. No peripheral edema. NEUROLOGICAL: good mentation, no focal deficit SKIN: Warm, dry, no rashes or lesions noted. Active Medications Generic Name Dose Route Start Last Admin Trade Name Chelo PRN Reason Stop Dose Admin Docusate Sodium 300 mg 09/09/17 22:00 09/11/17 21:24 Colace - PO Not Given HS SINDY Emtricitabine/Tenofovir 1 tab 09/08/17 10:00 09/11/17 09:43 Truvada PO 1 tab DAILY SINDY Administration Ethambutol HCl 800 mg 09/08/17 12:00 09/11/17 09:45 Myambutol - PO 800 mg DAILY SINDY Administration Heparin Sodium (Porcine) 5,000 unit 09/07/17 22:00 09/12/17 06:12 Heparin - SQ 5,000 unit TID SINDY Administration Isoniazid 300 mg 09/08/17 12:00 09/11/17 09:46 Inh - PO 300 mg DAILY SINDY Administration Polyethylene Glycol 17 gm 09/09/17 16:00 09/11/17 09:46 Miralax (For Daily Use) - PO 17 gm DAILY SINDY Administration Pyrazinamide 1,250 mg 09/08/17 11:45 09/11/17 09:43 Pyrazinamide - PO 1,250 mg DAILY SINDY Administration Pyridoxine HCl 50 mg 09/08/17 12:00 09/11/17 09:44 Vitamin B6 - PO 50 mg DAILY SINDY Administration Raltegravir 400 mg 09/09/17 22:00 09/11/17 21:23 Isentress - PO 400 mg BID SINDY Administration Rifabutin 300 mg 09/09/17 10:00 09/11/17 09:43 Mycobutin - PO 300 mg DAILY SINDY Administration CBC, BMP 09/08/17 05:25 09/10/17 05:35 ASSESSMENT/PLAN: 41 year old [place] M with PMHx of HIV on HAART, history of latent TB (treated in ), [place] presented to ER from HIV clinic due to abnormal CXR, found to have bilateral interstitial infiltrates with cavitary lesion. # Active TB Quantiferon+, Sputum +MTB complex, s/p bronch 09/07, [facility] notified - Tx started 09/08 (Rifabutin, INH, B6, PZA, Ethambutol), no side efx, LFTs stable # HIV - HAART meds Truvada + Isentress (we dont carry Tivicay) # Dispo - Needs continued airborne isolation for at least 2 weeks, waiting on [facility] - We will continue to follow the patient. Thank you for this consultative opportunity. Problem List - Problems (1) HIV disease Code(s): B20 - HUMAN IMMUNODEFICIENCY VIRUS [HIV] DISEASE (2) Tuberous sclerosis Code(s): Q85.1 - TUBEROUS SCLEROSIS Visit type - Emergency Visit Emergency Visit: Yes ED Registration Date: 09/05/17 Care time: The patient presented to the Emergency Department on the above date and was hospitalized for further evaluation of their emergent condition. - New Patient This patient is new to me today: No - Critical Care Critical Care patient: No
[2017-09-12] MEDS: RALTEGRAVIR POTASSIUM 400 MG TAB PO SCH ×2 (09:27→21:11)
[2017-09-12] MEDS: EMTRICITABINE 200MG/TENOFOVIR 300MG PO SCH (09:27)
[2017-09-12] MEDS: ISONIAZID 300 MG TABLET (FP) PO SCH (09:27)
[2017-09-12] MEDS: POLYETHYLENE GLYCOL 3350 119 GM BTL PO SCH (09:27)
[2017-09-12] MEDS: ETHAMBUTOL HCL 400 MG TABLET PO SCH (09:28)
[2017-09-12] MEDS: RIFABUTIN 150 MG CAPSULE PO SCH (09:29)
[2017-09-12] MEDS: PYRAZINAMIDE 500 MG TABLET PO SCH (09:29)
[2017-09-12] MEDS: PYRIDOXINE HCL (B-6) 50 MG TABLET (FP) PO SCH (09:30)
--- NOTE | 2017-09-12 11:35 | PN ---
Progress Note, Physician History of Present Illness: pulmonary alert,nad,-cp,-sob - Current Medication List Current Medications: Active Medications Docusate Sodium (Colace -) 300 mg PO HS [facility] Last Admin: 09/11/17 21:24 Dose: Not Given Emtricitabine/Tenofovir (Truvada) 1 tab PO DAILY [facility] Last Admin: 09/12/17 09:27 Dose: 1 tab Ethambutol HCl (Myambutol -) 800 mg PO DAILY [facility] Last Admin: 09/12/17 09:28 Dose: 800 mg Heparin Sodium (Porcine) (Heparin -) 5,000 unit SQ TID [facility] Last Admin: 09/12/17 06:12 Dose: 5,000 unit Isoniazid (Inh -) 300 mg PO DAILY [facility] Last Admin: 09/12/17 09:27 Dose: 300 mg Polyethylene Glycol (Miralax (For Daily Use) -) 17 gm PO DAILY [facility] Last Admin: 09/12/17 09:27 Dose: 17 gm Pyrazinamide (Pyrazinamide -) 1,250 mg PO DAILY [facility] Last Admin: 09/12/17 09:29 Dose: 1,250 mg Pyridoxine HCl (Vitamin B6 -) 50 mg PO DAILY [facility] Last Admin: 09/12/17 09:30 Dose: 50 mg Raltegravir (Isentress -) 400 mg PO BID [facility] Last Admin: 09/12/17 09:27 Dose: 400 mg Rifabutin (Mycobutin -) 300 mg PO DAILY [facility] Last Admin: 09/12/17 09:29 Dose: 300 mg - Objective Vital Signs: Vital Signs Temperature 98.2 F 09/12/17 10:00 Pulse Rate 86 09/12/17 10:00 Respiratory Rate 20 09/12/17 10:00 Blood Pressure 94/70 09/12/17 10:00 O2 Sat by Pulse Oximetry (%) 97 09/12/17 09:00 Constitutional: Yes: Calm, Thin Eyes: Yes: WNL HENT: Yes: WNL Neck: Yes: WNL Cardiovascular: Yes: Regular Rate and Rhythm, S1, S2 Respiratory: Yes: CTA Bilaterally Gastrointestinal: Yes: Normal Bowel Sounds, Soft Extremities: Yes: WNL Edema: No Assessment/Plan Problem List - Problems (1) Pneumonia Code(s): J18.9 - PNEUMONIA, UNSPECIFIED ORGANISM (2) HIV (human immunodeficiency virus infection) Code(s): Z21 - ASYMPTOMATIC HUMAN IMMUNODEFICIENCY VIRUS INFECTION STATUS Assessment/Plan Pneumonia TB HIV - TB meds as per ID - ART - MONITOR LFTS DR CARRENO
--- NOTE | 2017-09-12 12:25 | PN ---
Teaching Attending Note Name of Resident: Ita Snowden ATTENDING PHYSICIAN STATEMENT I saw and evaluated the patient. I reviewed the resident's note and discussed the case with the resident. I agree with the resident's findings and plan as documented. SUBJECTIVE:asymptomatic. denies Cp, SOb, fever, chills, N/V/C/D OBJECTIVE: Last Vital Signs Temp Pulse Resp BP Pulse Ox 98.2 F 86 20 94/70 97 09/12/17 10:00 09/12/17 10:00 09/12/17 10:00 09/12/17 10:00 09/12/17 09:00 General NAD Lungs CTA B/L no wheezing/rales/rhonchi ASSESSMENT AND PLAN: 41 yo M with PMH HIV, latent TB, Strongyloides who was presented to the ER from the [facility] because of an abnormal CXR showing bilateral interstitial infiltrates associated with night sweats, weight loss, cough and dyspnea on exertion.. 1. Active TB-s/p Bronch on 09/07. quantiferon +. AFB + for acid fast bacilli x2. on TB medications (INH, ETH, RIF, B6). will need periodic monitoring of liver functioning. [facility] notified by infection control. will need AFB Cx x3 negative smears prior to leaving. must be at least 8H apart. Awaiting home eval by [facility] to do home visit. pt does have baby at home. attempting to secure alternative living arrangements. will f/u cx from bronchoscopy. ID and pulmonary on board. airbone isolation 2. HIV- HARRT adjusted 3. DVT ppx- hep sq
--- NOTE | 2017-09-12 14:10 | PN ---
Teaching Attending Note Name of Resident: Ken Childers ATTENDING PHYSICIAN STATEMENT I saw and evaluated the patient. I reviewed the resident's note and discussed the case with the resident. I agree with the resident's findings and plan as documented. SUBJECTIVE: feels well less cough OBJECTIVE: Vital Signs Period Temp Pulse Resp BP Sys/Chacon Pulse Ox Last 24 Hr 98.2 F-98.7 F 73-86 18-20 94-104/49-78 97-99 cor-rrr lungs clear abd soft,nt ext no edema CBC, BMP 09/08/17 05:25 09/10/17 05:35 Microbiology 09/07/17 12:30 Serum Cryptococcal Antigen - Final 09/07/17 15:30 Bronchial Brushings AFB Smear Concentration - Final 09/07/17 15:30 Bronchial Brushings Mycobacterial Culture - Preliminary 09/07/17 15:30 Bronchial Brushings JACK Preparation - Preliminary 09/07/17 15:30 Bronchial Brushings Fungal Culture - Preliminary 09/06/17 17:50 Sputum - Expectorated AFB Smear Concentration - Preliminary 09/06/17 17:50 Sputum - Expectorated Direct Acid Fast Bacilli Smear - Final 09/06/17 17:50 Sputum - Expectorated Mycobacterial Culture - Preliminary 09/05/17 16:40 Urine For Antigen Detection Legionella Antigen - Final 09/05/17 16:40 Urine For Antigen Detection Streptococcus pneumoniae Antigen (M - Final ASSESSMENT AND PLAN: MTB HIV continue tb meds continue art
[2017-09-12] MEDS: DOCUSATE SODIUM 100 MG CAPSULE (FP) PO SCH (21:10)
--- NOTE | 2017-09-13 06:42 | PN ---
Physical Exam: SUBJECTIVE: Doing well this AM. No complaints. No sfx of TB meds (no joint pain , abd pain, vision changes), explained to patient that we need 3 negative sputum AFB before we talk about discharge, patient verbalizes understanding, gave sample last night, sent to lab. Afebrile, VSS overnight. OBJECTIVE: Vital Signs Period Temp Pulse Resp BP Sys/Chacon Pulse Ox Last 24 Hr 98 F-98.9 F 77-87 18-20 92-108/50-70 97-97 GEN: AAOx3, NAD, lying comfortably in bed HEENT: PERRLA, EOMi CV: S1, S2, RRR LUNG: CTAB: ABD: Soft, NT, ND, normoactive BS MSK: No edema, no erythema NEURO: No sensation or MSK deficits Laboratory Last Values WBC 5.7 K/mm3 (4.0-10.0) D 09/08/17 05:25 RBC 4.47 M/mm3 (4.00-5.60) 09/08/17 05:25 Hgb 11.4 GM/dL (11.7-16.9) L 09/08/17 05:25 Hct 35.7 % (35.4-49) 09/08/17 05:25 MCV 79.8 fl (80-96) L 09/08/17 05:25 MCH 25.6 pg (25.7-33.7) L 09/08/17 05:25 MCHC 32.0 g/dl (32.0-35.9) 09/08/17 05:25 RDW 15.3 % (11.9-15.9) 09/08/17 05:25 Plt Count 321 K/MM3 (134-434) 09/08/17 05:25 MPV 7.2 fl (7.5-11.1) L 09/08/17 05:25 Sodium 137 mmol/L (136-145) 09/10/17 05:35 Potassium 4.7 mmol/L (3.5-5.1) 09/10/17 05:35 Chloride 102 mmol/L (98-107) 09/10/17 05:35 Carbon Dioxide 30 mmol/L (21-32) 09/10/17 05:35 Anion Gap 5 (8-16) L 09/10/17 05:35 BUN 19 mg/dL (7-18) H 09/10/17 05:35 Creatinine 1.3 mg/dL (0.7-1.3) 09/10/17 05:35 Creat Clearance w eGFR > 60 (>60) 09/10/17 05:35 Random Glucose 78 mg/dL (74-106) 09/10/17 05:35 Calcium 9.2 mg/dL (8.5-10.1) 09/10/17 05:35 Total Bilirubin 0.3 mg/dL (0.2-1.0) D 09/10/17 05:35 AST 28 U/L (15-37) D 09/10/17 05:35 ALT 30 U/L (12-78) 09/10/17 05:35 Alkaline Phosphatase 136 U/L (45-117) H 09/10/17 05:35 C-Reactive Protein 3.1 MG/DL (0.00-0.3) H D 09/06/17 05:55 Total Protein 7.0 g/dl (6.4-8.2) 09/10/17 05:35 Albumin 2.9 g/dl (3.4-5.0) L 09/10/17 05:35 Strongyloides IgG Ab Negative (Negative) 09/06/17 05:55 TB Test (QFT) Positive (Negative) H 09/07/17 12:10 Active Medications Generic Name Dose Route Start Last Admin Trade Name Freq PRN Reason Stop Dose Admin Docusate Sodium 300 mg 09/09/17 22:00 09/12/17 21:10 Colace - PO 300 mg HS SINDY Administration Emtricitabine/Tenofovir 1 tab 09/08/17 10:00 09/12/17 09:27 Truvada PO 1 tab DAILY SINDY Administration Enoxaparin Sodium 40 mg 09/13/17 10:00 Lovenox - SQ DAILY SINDY Ethambutol HCl 800 mg 09/08/17 12:00 09/12/17 09:28 Myambutol - PO 800 mg DAILY SINDY Administration Isoniazid 300 mg 09/08/17 12:00 09/12/17 09:27 Inh - PO 300 mg DAILY SINDY Administration Polyethylene Glycol 17 gm 09/09/17 16:00 09/12/17 09:27 Miralax (For Daily Use) - PO 17 gm DAILY SINDY Administration Pyrazinamide 1,250 mg 09/08/17 11:45 09/12/17 09:29 Pyrazinamide - PO 1,250 mg DAILY SINDY Administration Pyridoxine HCl 50 mg 09/08/17 12:00 09/12/17 09:30 Vitamin B6 - PO 50 mg DAILY SINDY Administration Raltegravir 400 mg 09/09/17 22:00 09/12/17 21:11 Isentress - PO 400 mg BID SINDY Administration Rifabutin 300 mg 09/09/17 10:00 09/12/17 09:29 Mycobutin - PO 300 mg DAILY SINDY Administration ASSESSMENT/PLAN: 41 year old [place] M with PMHx of HIV on HAART, history of latent TB (treated in ), [place] presented to ER from HIV clinic due to abnormal CXR, found to have bilateral interstitial infiltrates with cavitary lesion. # Active TB Quantiferon+, Sputum +MTB complex, s/p bronch 09/07 - Tx started 09/08 (Rifabutin, INH, B6, PZA, Ethambutol), no side sfx, LFTs stable # HIV - HAART meds Truvada + Isentress (we dont carry Tivicay) # Constipation - Change miralax and colace to PRN # FEN - No IVF, elect stable, Regular diet # PPx - Lovenox SQD # Dispo - [facility] notified by infection control. Need 3 neg AFB smear prior to leaving, encourage expectoration, continue airborne isolation. Ita Snowden MD - PGY1 Internal Medicine Visit type - Emergency Visit Emergency Visit: No - New Patient This patient is new to me today: No - Critical Care Critical Care patient: No - Discharge Referral Referred to [facility] Med P.C.: No
[2017-09-13] MEDS ORDERED: POLYETHYLENE GLYCOL 3350 119 GM BTL PO PRN (06:44)
[2017-09-13] MEDS ORDERED: DOCUSATE SODIUM 100 MG CAPSULE (FP) PO PRN (06:45)
--- NOTE | 2017-09-13 07:37 | CONSULT ---
Consultation: REQUESTING PROVIDER: CONSULT REQUEST: We have been asked to medically evaluate this patient for ( specify). HISTORY OF PRESENT ILLNESS: Patient seen and evaluated at bedside. No acute events over night, denies any fever, chills, N/V/C/D, denies night sweats , cp, sob or coughing. REVIEW OF SYSTEMS: noncontributory PHYSICAL EXAMINATION Vital Signs - 24 hr 09/12/17 09/12/17 09/12/17 09:00 10:00 14:00 Temperature 98.2 F 98.1 F Pulse Rate 86 79 Respiratory 20 Rate Blood Pressure 94/70 101/64 O2 Sat by Pulse 97 Oximetry (%) 09/12/17 09/12/17 09/12/17 17:00 21:00 21:18 Temperature 98.8 F 98 F Pulse Rate 87 82 Respiratory 18 20 20 Rate Blood Pressure 108/67 99/66 O2 Sat by Pulse 97 Oximetry (%) 09/13/17 09/13/17 01:05 06:51 Temperature 98.9 F 98 F Pulse Rate 77 76 Respiratory 20 20 Rate Blood Pressure 92/50 90/62 O2 Sat by Pulse Oximetry (%) GENERAL: Awake, alert, and fully oriented, in no acute distress. HEAD: Normal with no signs of trauma. EYES: sclera anicteric, conjunctiva clear. EARS, NOSE, THROAT: Moist mucous membranes. LUNGS: Breath sounds equal, clear to auscultation bilaterally. No wheezes, and no crackles. No accessory muscle use. HEART: Regular rate and rhythm, normal S1 and S2 without murmur, rub or gallop. ABDOMEN: Soft, nontender, not distended, normoactive bowel sounds, no guarding, no rebound, no masses. No hepatomegaly or splenomegaly. LOWER EXTREMITIES:warm, well-perfused. No calf tenderness. No peripheral edema. NEUROLOGICAL: good mentation, no focal deficit SKIN: Warm, dry, no rashes or lesions noted. Active Medications Generic Name Dose Route Start Last Admin Trade Name Freq PRN Reason Stop Dose Admin Docusate Sodium 300 mg 09/13/17 06:45 Colace - PO HS PRN CONSTIPATION Emtricitabine/Tenofovir 1 tab 09/08/17 10:00 09/12/17 09:27 Truvada PO 1 tab DAILY SINDY Administration Enoxaparin Sodium 40 mg 09/13/17 10:00 Lovenox - SQ DAILY SINDY Ethambutol HCl 800 mg 09/08/17 12:00 09/12/17 09:28 Myambutol - PO 800 mg DAILY SINDY Administration Isoniazid 300 mg 09/08/17 12:00 09/12/17 09:27 Inh - PO 300 mg DAILY SINDY Administration Polyethylene Glycol 17 gm 09/13/17 06:44 Miralax (For Daily Use) - PO DAILY PRN CONSTIPATION Pyrazinamide 1,250 mg 09/08/17 11:45 09/12/17 09:29 Pyrazinamide - PO 1,250 mg DAILY SINDY Administration Pyridoxine HCl 50 mg 09/08/17 12:00 09/12/17 09:30 Vitamin B6 - PO 50 mg DAILY SINDY Administration Raltegravir 400 mg 09/09/17 22:00 09/12/17 21:11 Isentress - PO 400 mg BID SINDY Administration Rifabutin 300 mg 09/09/17 10:00 09/12/17 09:29 Mycobutin - PO 300 mg DAILY SINDY Administration CBC, BMP 09/08/17 05:25 09/10/17 05:35 Microbiology 09/07/17 12:30 Serum Cryptococcal Antigen - Final 09/07/17 15:30 Bronchial Brushings AFB Smear Concentration - Final 09/07/17 15:30 Bronchial Brushings Mycobacterial Culture - Preliminary 09/07/17 15:30 Bronchial Brushings JACK Preparation - Preliminary 09/07/17 15:30 Bronchial Brushings Fungal Culture - Preliminary 09/06/17 17:50 Sputum - Expectorated AFB Smear Concentration - Preliminary 09/06/17 17:50 Sputum - Expectorated Direct Acid Fast Bacilli Smear - Final 09/06/17 17:50 Sputum - Expectorated Mycobacterial Culture - Preliminary 09/05/17 16:40 Urine For Antigen Detection Legionella Antigen - Final 09/05/17 16:40 Urine For Antigen Detection Streptococcus pneumoniae Antigen (M - Final ASSESSMENT/PLAN: 41 year old [place] M with PMHx of HIV on HAART, history of latent TB (treated in ), [place] presented to ER from HIV clinic due to abnormal CXR, found to have bilateral interstitial infiltrates with cavitary lesion. # Active TB Quantiferon+, Sputum +MTB complex, s/p bronch 09/07, [facility] notified - Tx started 09/08 (Rifabutin, INH, B6, PZA, Ethambutol), no side efx, LFTs stable # HIV - HAART meds Truvada + Isentress (we dont carry Tivicay) # Dispo - Needs continued airborne isolation for at least 2 weeks, waiting on [facility] - We will continue to follow the patient. Thank you for this consultative opportunity. Problem List - Problems (1) HIV disease Code(s): B20 - HUMAN IMMUNODEFICIENCY VIRUS [HIV] DISEASE (2) Tuberous sclerosis Code(s): Q85.1 - TUBEROUS SCLEROSIS Visit type - Emergency Visit Emergency Visit: Yes ED Registration Date: 09/05/17 Care time: The patient presented to the Emergency Department on the above date and was hospitalized for further evaluation of their emergent condition. - New Patient This patient is new to me today: No - Critical Care Critical Care patient: No
[2017-09-13] MEDS: ENOXAPARIN NA (PORCINE) 40 MG/0.4 ML DISP.SYRIN SQ SCH (09:47)
[2017-09-13] MEDS: EMTRICITABINE 200MG/TENOFOVIR 300MG PO SCH (09:48)
[2017-09-13] MEDS: RIFABUTIN 150 MG CAPSULE PO SCH (09:48)
[2017-09-13] MEDS: RALTEGRAVIR POTASSIUM 400 MG TAB PO SCH ×2 (09:48→22:15)
[2017-09-13] MEDS: ETHAMBUTOL HCL 400 MG TABLET PO SCH (09:49)
[2017-09-13] MEDS: PYRAZINAMIDE 500 MG TABLET PO SCH (09:49)
[2017-09-13] MEDS: ISONIAZID 300 MG TABLET (FP) PO SCH (09:50)
[2017-09-13] MEDS: PYRIDOXINE HCL (B-6) 50 MG TABLET (FP) PO SCH (09:50)
--- NOTE | 2017-09-13 11:56 | PN ---
Progress Note, Physician History of Present Illness: PULMONARY ALERT,NAD,-SOB,-COUGH. - Current Medication List Current Medications: Active Medications Docusate Sodium (Colace -) 300 mg PO HS PRN PRN Reason: CONSTIPATION Emtricitabine/Tenofovir (Truvada) 1 tab PO DAILY [facility] Last Admin: 09/13/17 09:48 Dose: 1 tab Enoxaparin Sodium (Lovenox -) 40 mg SQ DAILY [facility] Last Admin: 09/13/17 09:47 Dose: 40 mg Ethambutol HCl (Myambutol -) 800 mg PO DAILY [facility] Last Admin: 09/13/17 09:49 Dose: 800 mg Isoniazid (Inh -) 300 mg PO DAILY [facility] Last Admin: 09/13/17 09:50 Dose: 300 mg Polyethylene Glycol (Miralax (For Daily Use) -) 17 gm PO DAILY PRN PRN Reason: CONSTIPATION Pyrazinamide (Pyrazinamide -) 1,250 mg PO DAILY [facility] Last Admin: 09/13/17 09:49 Dose: 1,250 mg Pyridoxine HCl (Vitamin B6 -) 50 mg PO DAILY [facility] Last Admin: 09/13/17 09:50 Dose: 50 mg Raltegravir (Isentress -) 400 mg PO BID [facility] Last Admin: 09/13/17 09:48 Dose: 400 mg Rifabutin (Mycobutin -) 300 mg PO DAILY [facility] Last Admin: 09/13/17 09:48 Dose: 300 mg - Objective Vital Signs: Vital Signs Temperature 98.0 F 09/13/17 09:00 Pulse Rate 84 09/13/17 09:00 Respiratory Rate 20 09/13/17 09:00 Blood Pressure 105/58 09/13/17 09:00 O2 Sat by Pulse Oximetry (%) 97 09/13/17 09:00 Constitutional: Yes: Calm, Thin Eyes: Yes: WNL HENT: Yes: WNL Neck: Yes: WNL Cardiovascular: Yes: Regular Rate and Rhythm, S1, S2 Respiratory: Yes: Diminished Gastrointestinal: Yes: Normal Bowel Sounds, Soft Extremities: Yes: WNL Edema: No Assessment/Plan Problem List - Problems (1) Pneumonia Code(s): J18.9 - PNEUMONIA, UNSPECIFIED ORGANISM (2) HIV (human immunodeficiency virus infection) Code(s): Z21 - ASYMPTOMATIC HUMAN IMMUNODEFICIENCY VIRUS INFECTION STATUS Assessment/Plan Pneumonia TB HIV - TB meds as per ID - ART - MONITOR LFTS DR CARRENO
--- NOTE | 2017-09-13 12:54 | PN ---
Teaching Attending Note Name of Resident: Ita Snowden ATTENDING PHYSICIAN STATEMENT I saw and evaluated the patient. I reviewed the resident's note and discussed the case with the resident. I agree with the resident's findings and plan as documented. SUBJECTIVE:asymptomatic. having red colored urine. deneis CP,SOb, fever, chills , N/V/C/D, dysuria OBJECTIVE: Last Vital Signs Temp Pulse Resp BP Pulse Ox 98.0 F 84 20 105/58 97 09/13/17 09:00 09/13/17 09:00 09/13/17 09:00 09/13/17 09:00 09/13/17 09:00 General NAD Lungs CTA B/L no wheezing/rales/rhonchi ASSESSMENT AND PLAN: 41 yo M with PMH HIV, latent TB, Strongyloides who was presented to the ER from the [facility] because of an abnormal CXR showing bilateral interstitial infiltrates associated with night sweats, weight loss, cough and dyspnea on exertion.. 1. Active TB-s/p Bronch on 09/07. quantiferon +. AFB + for acid fast bacilli x2. on TB medications (INH, ETH, RIF, B6). will need periodic monitoring of liver functioning. [facility] notified by infection control. will need AFB Cx x3 negative smears prior to leaving. must be at least 8H apart. Awaiting home eval by [facility] to do home visit. pt does have baby at home. attempting to secure alternative living arrangements. will f/u cx from bronchoscopy. ID and pulmonary on board. airbone isolation. red colored urine common side effect of medication 2. HIV- HARRT adjusted 3. DVT ppx- hep sq
[2017-09-13 15:33] LABS: HISTOPLASMA AG-URINE <0.5
--- NOTE | 2017-09-13 15:56 | PN ---
Teaching Attending Note Name of Resident: Ken Childers ATTENDING PHYSICIAN STATEMENT I saw and evaluated the patient. I reviewed the resident's note and discussed the case with the resident. I agree with the resident's findings and plan as documented. SUBJECTIVE: No complaints No c/o chest pain/dyspnea No c/o fever/ chills OBJECTIVE: Appears comfortable Few rhonchi bilaterally ASSESSMENT AND PLAN: Pulmonary MTB HIV Continue TB meds ART
[2017-09-14 07:30] LABS: ALBUMIN 2.8 g/dl (3.4-5.0); BILIRUBIN,DIRECT < 0.1 mg/dL (0.0-0.2); BILIRUBIN,TOTAL 0.2 mg/dL (0.2-1.0); SGOT/AST 38 U/L (15-37); SGPT/ALT 50 U/L (12-78)
[2017-09-14 07:35] LABS: ALK PHOS 137 U/L (45-117); TOT PROT 6.6 g/dl (6.4-8.2)
--- NOTE | 2017-09-14 08:31 | PN ---
Physical Exam: SUBJECTIVE: Patient seen and examined. Doing well. No complaints. States that his other sister has a room for him to stay (no baby in that household), will speak to CM OBJECTIVE: Vital Signs Period Temp Pulse Resp BP Sys/Chacon Pulse Ox Last 24 Hr 98 F-98.8 F 64-84 18-20 93-105/58-67 97-97 GEN: AAOx3, NAD, lying comfortably in bed HEENT: PERRLA, EOMi CV: S1, S2, RRR LUNG: CTAB: ABD: Soft, NT, ND, normoactive BS MSK: No edema, no erythema NEURO: No sensation or MSK deficits Laboratory Results - last 24 hr 09/05/17 09/14/17 16:30 06:40 Total Bilirubin 0.2 D Direct Bilirubin < 0.1 AST 38 H D ALT 50 D Alkaline Phosphatase 137 H Total Protein 6.6 Albumin 2.8 L Urine Histoplasma Ag <0.5 Strongyloides IgG Ab Negative Active Medications Generic Name Dose Route Start Last Admin Trade Name Freq PRN Reason Stop Dose Admin Docusate Sodium 300 mg 09/13/17 06:45 Colace - PO HS PRN CONSTIPATION Emtricitabine/Tenofovir 1 tab 09/08/17 10:00 09/13/17 09:48 Truvada PO 1 tab DAILY SINDY Administration Enoxaparin Sodium 40 mg 09/13/17 10:00 09/13/17 09:47 Lovenox - SQ 40 mg DAILY SINDY Administration Ethambutol HCl 800 mg 09/08/17 12:00 09/13/17 09:49 Myambutol - PO 800 mg DAILY SINDY Administration Isoniazid 300 mg 09/08/17 12:00 09/13/17 09:50 Inh - PO 300 mg DAILY SINDY Administration Polyethylene Glycol 17 gm 09/13/17 06:44 Miralax (For Daily Use) - PO DAILY PRN CONSTIPATION Pyrazinamide 1,250 mg 09/08/17 11:45 09/13/17 09:49 Pyrazinamide - PO 1,250 mg DAILY SINDY Administration Pyridoxine HCl 50 mg 09/08/17 12:00 09/13/17 09:50 Vitamin B6 - PO 50 mg DAILY SINDY Administration Raltegravir 400 mg 09/09/17 22:00 09/13/17 22:15 Isentress - PO 400 mg BID SINDY Administration Rifabutin 300 mg 09/09/17 10:00 09/13/17 09:48 Mycobutin - PO 300 mg DAILY SINDY Administration ASSESSMENT/PLAN: 41 year old [place] M with PMHx of HIV on HAART, history of latent TB (treated in ), [place] presented to ER from HIV clinic due to abnormal CXR, found to have bilateral interstitial infiltrates with cavitary lesion. # Active TB Quantiferon+, Sputum +MTB complex, s/p bronch 09/07 - Tx started 09/08 (Rifabutin, INH, B6, PZA, Ethambutol), no side sfx, LFTs stable - 2 sputum samples neg AFB, but contains saliva not expectorant material, will call respiratory to aerosol induce third sample, if third sample is negative then we can count 3 true neg samples # HIV - HAART meds Truvada + Isentress (we dont carry Tivicay) # Constipation - Change miralax and colace to PRN # FEN - No IVF, elect stable, Regular diet w/ Ensure # PPx - Lovenox SQD # Dispo - [facility] notified by infection control. Need 3 neg AFB smear prior to leaving, encourage expectoration, continue airborne isolation. Ita Snowden MD - PGY1 Internal Medicine Visit type - Emergency Visit Emergency Visit: No - New Patient This patient is new to me today: No - Critical Care Critical Care patient: No - Discharge Referral Referred to [facility] Med P.C.: No
[2017-09-14] MEDS ORDERED: PT OWN MED DRAWER 7, Y5N ONE (09:35)
--- NOTE | 2017-09-14 10:07 | PN ---
Physical Exam: SUBJECTIVE: Patient seen and examined at bedside. He si doing well, denies any fever, chills, N/V/D/C, denies, cp, sop, cough, or any nigh sweat. OBJECTIVE: Vital Signs Period Temp Pulse Resp BP Sys/Chacon Pulse Ox Last 24 Hr 98 F-98.8 F 64-81 18-20 93-105/58-67 97 GENERAL: Awake, alert, and fully oriented, in no acute distress. HEAD: Normal with no signs of trauma. EYES: sclera anicteric, conjunctiva clear. EARS, NOSE, THROAT: Moist mucous membranes. LUNGS: Breath sounds equal, clear to auscultation bilaterally. No wheezes, and no crackles. No accessory muscle use. HEART: Regular rate and rhythm, normal S1 and S2 without murmur, rub or gallop. ABDOMEN: Soft, nontender, not distended, normoactive bowel sounds, no guarding, no rebound, no masses. No hepatomegaly or splenomegaly. LOWER EXTREMITIES:warm, well-perfused. No calf tenderness. No peripheral edema. NEUROLOGICAL: good mentation, no focal deficit SKIN: Warm, dry, no rashes or lesions noted. Laboratory Results - last 24 hr 09/05/17 09/14/17 16:30 06:40 Total Bilirubin 0.2 D Direct Bilirubin < 0.1 AST 38 H D ALT 50 D Alkaline Phosphatase 137 H Total Protein 6.6 Albumin 2.8 L Urine Histoplasma Ag <0.5 Strongyloides IgG Ab Negative Active Medications Generic Name Dose Route Start Last Admin Trade Name Freq PRN Reason Stop Dose Admin Docusate Sodium 300 mg 09/13/17 06:45 Colace - PO HS PRN CONSTIPATION Emtricitabine/Tenofovir 1 tab 09/08/17 10:00 09/13/17 09:48 Truvada PO 1 tab DAILY SINDY Administration Enoxaparin Sodium 40 mg 09/13/17 10:00 09/13/17 09:47 Lovenox - SQ 40 mg DAILY SINDY Administration Ethambutol HCl 800 mg 09/08/17 12:00 09/13/17 09:49 Myambutol - PO 800 mg DAILY SINDY Administration Isoniazid 300 mg 09/08/17 12:00 09/13/17 09:50 Inh - PO 300 mg DAILY SINDY Administration Polyethylene Glycol 17 gm 09/13/17 06:44 Miralax (For Daily Use) - PO DAILY PRN CONSTIPATION Pyrazinamide 1,250 mg 09/08/17 11:45 09/13/17 09:49 Pyrazinamide - PO 1,250 mg DAILY SINDY Administration Pyridoxine HCl 50 mg 09/08/17 12:00 09/13/17 09:50 Vitamin B6 - PO 50 mg DAILY SINDY Administration Raltegravir 400 mg 09/09/17 22:00 09/13/17 22:15 Isentress - PO 400 mg BID SINDY Administration Rifabutin 300 mg 09/09/17 10:00 09/13/17 09:48 Mycobutin - PO 300 mg DAILY SINDY Administration CBC, BMP 09/08/17 05:25 09/10/17 05:35 09/07/17 12:30 Serum Cryptococcal Antigen - Final 09/07/17 15:30 Bronchial Brushings AFB Smear Concentration - Final 09/07/17 15:30 Bronchial Brushings Mycobacterial Culture - Preliminary 09/07/17 15:30 Bronchial Brushings JACK Preparation - Preliminary 09/07/17 15:30 Bronchial Brushings Fungal Culture - Preliminary 09/06/17 17:50 Sputum - Expectorated AFB Smear Concentration - Preliminary 09/06/17 17:50 Sputum - Expectorated Direct Acid Fast Bacilli Smear - Final 09/06/17 17:50 Sputum - Expectorated Mycobacterial Culture - Preliminary 09/05/17 16:40 Urine For Antigen Detection Legionella Antigen - Final 09/05/17 16:40 Urine For Antigen Detection Streptococcus pneumoniae Antigen (M - Final ASSESSMENT/PLAN: 41 year old [place] M with PMHx of HIV on HAART, history of latent TB (treated in ), [place] presented to ER from HIV clinic due to abnormal CXR, found to have bilateral interstitial infiltrates with cavitary lesion. # Active TB Quantiferon+, Sputum +MTB complex, s/p bronch 09/07, [facility] notified - Tx started 09/08 (Rifabutin, INH, B6, PZA, Ethambutol), no side efx, LFTs stable # HIV - HAART meds Truvada + Isentress (we dont carry Tivicay) # Dispo - Needs continued airborne isolation for at least 2 weeks, waiting on [facility] - Need 3 neg AFB smear prior to leaving, - We will continue to follow the patient. Thank you for this consultative opportunity. Problem List - Problems (1) HIV disease Code(s): B20 - HUMAN IMMUNODEFICIENCY VIRUS [HIV] DISEASE (2) Tuberous sclerosis Code(s): Q85.1 - TUBEROUS SCLEROSIS Visit type - Emergency Visit Emergency Visit: Yes ED Registration Date: 09/05/17 Care time: The patient presented to the Emergency Department on the above date and was hospitalized for further evaluation of their emergent condition. - New Patient This patient is new to me today: No - Critical Care Critical Care patient: No - Discharge Referral Referred to [facility] Med P.C.: No
--- NOTE | 2017-09-14 10:24 | PN ---
Teaching Attending Note Name of Resident: Ken Childers ATTENDING PHYSICIAN STATEMENT I saw and evaluated the patient. I reviewed the resident's note and discussed the case with the resident. I agree with the resident's findings and plan as documented. SUBJECTIVE: no complaints, feels well OBJECTIVE: Vital Signs Period Temp Pulse Resp BP Sys/Chacon Pulse Ox Last 24 Hr 98 F-98.8 F 64-81 18-20 93-105/58-67 97 cor-rrr lungs decreased bs at bases abd soft,nt ext no edema CBC, BMP 09/08/17 05:25 09/10/17 05:35 ASSESSMENT AND PLAN: TB HIV continue meds doing well asymptomatic f/u with [facility] f/u sputum afb
[2017-09-14] MEDS: EMTRICITABINE 200MG/TENOFOVIR 300MG PO SCH (10:28)
[2017-09-14] MEDS: RALTEGRAVIR POTASSIUM 400 MG TAB PO SCH ×2 (10:28→22:27)
[2017-09-14] MEDS: ISONIAZID 300 MG TABLET (FP) PO SCH (10:29)
[2017-09-14] MEDS: PYRAZINAMIDE 500 MG TABLET PO SCH (10:29)
[2017-09-14] MEDS: ENOXAPARIN NA (PORCINE) 40 MG/0.4 ML DISP.SYRIN SQ SCH (10:29)
[2017-09-14] MEDS: RIFABUTIN 150 MG CAPSULE PO SCH (10:30)
[2017-09-14] MEDS: ETHAMBUTOL HCL 400 MG TABLET PO SCH (10:30)
[2017-09-14] MEDS: PYRIDOXINE HCL (B-6) 50 MG TABLET (FP) PO SCH (10:30)
--- NOTE | 2017-09-14 18:51 | PN ---
Teaching Attending Note Name of Resident: Ita Snwoden ATTENDING PHYSICIAN STATEMENT I saw and evaluated the patient. I reviewed the resident's note and discussed the case with the resident. I agree with the resident's findings and plan as documented. SUBJECTIVE: no new complaints, overall stable OBJECTIVE: Vital Signs Period Temp Pulse Resp BP Sys/Chacon Pulse Ox Last 24 Hr 97.8 F-98 F 64-84 20-20 93-100/58-63 97-97 chest - no rales appreciated CVS - S1S2 regular Current Medications Generic Name Dose Route Start Last Admin Trade Name Freq PRN Reason Stop Dose Admin Docusate Sodium 300 mg 09/13/17 06:45 Colace - PO HS PRN CONSTIPATION Emtricitabine/Tenofovir 1 tab 09/08/17 10:00 09/14/17 10:28 Truvada PO 1 tab DAILY SINDY Administration Enoxaparin Sodium 40 mg 09/13/17 10:00 09/14/17 10:29 Lovenox - SQ 40 mg DAILY SINDY Administration Ethambutol HCl 800 mg 09/08/17 12:00 09/14/17 10:30 Myambutol - PO 800 mg DAILY SINDY Administration Isoniazid 300 mg 09/08/17 12:00 09/14/17 10:29 Inh - PO 300 mg DAILY SINDY Administration Polyethylene Glycol 17 gm 09/13/17 06:44 Miralax (For Daily Use) - PO DAILY PRN CONSTIPATION Pyrazinamide 1,250 mg 09/08/17 11:45 09/14/17 10:29 Pyrazinamide - PO 1,250 mg DAILY [facility] Administration Pyridoxine HCl 50 mg 09/08/17 12:00 09/14/17 10:30 Vitamin B6 - PO 50 mg DAILY SINDY Administration Raltegravir 400 mg 09/09/17 22:00 09/14/17 10:28 Isentress - PO 400 mg BID SINDY Administration Rifabutin 300 mg 09/09/17 10:00 09/14/17 10:30 Mycobutin - PO 300 mg DAILY SINDY Administration Laboratory Results - last 24 hr 09/14/17 09/14/17 06:40 15:51 POC Glucometer 88 Total Bilirubin 0.2 D Direct Bilirubin < 0.1 AST 38 H D ALT 50 D Alkaline Phosphatase 137 H Total Protein 6.6 Albumin 2.8 L ASSESSMENT AND PLAN: Active pulmonary TB pending 3 neg AFB for dispo planning. Repeat x2 neg so far, follow up. COntinue treatment per ID recs with LFT monitoring Continue HAART Social work/case management involved for dispo planning. Dispo pending neg AFB and dispo planning.
--- NOTE | 2017-09-15 08:23 | PN ---
Physical Exam: SUBJECTIVE: Patient seen and examined. Doing well, no complaints. No TB med sideffectss (no abd pain, no joiont pain, no vision changes) OBJECTIVE: Vital Signs Period Temp Pulse Resp BP Sys/Chacon Pulse Ox Last 24 Hr 97.8 F-98.8 F 70-92 18-20 94-127/50-63 97-97 GEN: AAOx3, NAD, lying comfortably in bed HEENT: PERRLA, EOMi CV: S1, S2, RRR LUNG: CTAB: ABD: Soft, NT, ND, normoactive BS MSK: No edema, no erythema NEURO: No sensation or MSK deficits Laboratory Results - last 24 hr 09/14/17 15:51 POC Glucometer 88 Active Medications Generic Name Dose Route Start Last Admin Trade Name Freq PRN Reason Stop Dose Admin Docusate Sodium 300 mg 09/13/17 06:45 Colace - PO HS PRN CONSTIPATION Emtricitabine/Tenofovir 1 tab 09/08/17 10:00 09/14/17 10:28 Truvada PO 1 tab DAILY SINDY Administration Enoxaparin Sodium 40 mg 09/13/17 10:00 09/14/17 10:29 Lovenox - SQ 40 mg DAILY SINDY Administration Ethambutol HCl 800 mg 09/08/17 12:00 09/14/17 10:30 Myambutol - PO 800 mg DAILY SINDY Administration Isoniazid 300 mg 09/08/17 12:00 09/14/17 10:29 Inh - PO 300 mg DAILY SINDY Administration Polyethylene Glycol 17 gm 09/13/17 06:44 Miralax (For Daily Use) - PO DAILY PRN CONSTIPATION Pyrazinamide 1,250 mg 09/08/17 11:45 09/14/17 10:29 Pyrazinamide - PO 1,250 mg DAILY SINDY Administration Pyridoxine HCl 50 mg 09/08/17 12:00 09/14/17 10:30 Vitamin B6 - PO 50 mg DAILY SINDY Administration Raltegravir 400 mg 09/09/17 22:00 09/14/17 22:27 Isentress - PO 400 mg BID SINDY Administration Rifabutin 300 mg 09/09/17 10:00 09/14/17 10:30 Mycobutin - PO 300 mg DAILY SINDY Administration ASSESSMENT/PLAN: 41 year old [place]ron[place] M with PMHx of HIV on HAART, history of latent TB (treated in ), [place] presented to ER from HIV clinic due to abnormal CXR, found to have bilateral interstitial infiltrates with cavitary lesion. # Active TB Quantiferon+, Sputum +MTB complex, s/p bronch 09/07 - Tx started 09/08 (Rifabutin, INH, B6, PZA, Ethambutol), no side sfx, LFTs stable - Has 3 negative sputum AFB smear samples # HIV - HAART meds Truvada + Isentress (we dont carry Tivicay) # Constipation - Change miralax and colace to PRN # FEN - No IVF, elect stable, Regular diet w/ Ensure # PPx - Lovenox SQD # [facility] by infection control. Notify CM about 3 neg sputum sample. Continue airborne isolation. Ita Snowden MD - PGY1 Internal Medicine Visit type - Emergency Visit Emergency Visit: No - New Patient This patient is new to me today: No - Critical Care Critical Care patient: No - Discharge Referral Referred to [facility] Med P.C[facility] No
[2017-09-15] MEDS ORDERED: PT OWN MED DRAWER 7, Y5N ONE ×3 (09:27→21:17)
[2017-09-15] MEDS: RIFABUTIN 150 MG CAPSULE PO SCH (09:37)
[2017-09-15] MEDS: ISONIAZID 300 MG TABLET (FP) PO SCH (09:37)
[2017-09-15] MEDS: PYRIDOXINE HCL (B-6) 50 MG TABLET (FP) PO SCH (09:37)
[2017-09-15] MEDS: ETHAMBUTOL HCL 400 MG TABLET PO SCH (09:37)
[2017-09-15] MEDS: EMTRICITABINE 200MG/TENOFOVIR 300MG PO SCH (09:38)
[2017-09-15] MEDS: RALTEGRAVIR POTASSIUM 400 MG TAB PO SCH ×2 (09:38→22:04)
[2017-09-15] MEDS: PYRAZINAMIDE 500 MG TABLET PO SCH (09:38)
[2017-09-15] MEDS: ENOXAPARIN NA (PORCINE) 40 MG/0.4 ML DISP.SYRIN SQ SCH (09:38)
--- NOTE | 2017-09-15 11:09 | PN ---
Physical Exam: SUBJECTIVE: Patient seen and examined at bedside. He is doing well, denies any fever, chills, N/V/D/C, denies, cp, sop, cough, or any nigh sweat. OBJECTIVE: Vital Signs Period Temp Pulse Resp BP Sys/Chacon Pulse Ox Last 24 Hr 97.8 F-98.8 F 70-92 18-20 94-127/50-63 97 GENERAL: Awake, alert, and fully oriented, in no acute distress. HEAD: Normal with no signs of trauma. EYES: sclera anicteric, conjunctiva clear. EARS, NOSE, THROAT: Moist mucous membranes. LUNGS: Breath sounds equal, clear to auscultation bilaterally. No wheezes, and no crackles. No accessory muscle use. HEART: Regular rate and rhythm, normal S1 and S2 without murmur, rub or gallop. ABDOMEN: Soft, nontender, not distended, normoactive bowel sounds, no guarding, no rebound. LOWER EXTREMITIES:warm, well-perfused. No calf tenderness. No peripheral edema. NEUROLOGICAL: good mentation, no focal deficit SKIN: Warm, dry, no rashes or lesions noted. Laboratory Results - last 24 hr 09/14/17 15:51 POC Glucometer 88 Active Medications Generic Name Dose Route Start Last Admin Trade Name Freq PRN Reason Stop Dose Admin Docusate Sodium 300 mg 09/13/17 06:45 Colace - PO HS PRN CONSTIPATION Emtricitabine/Tenofovir 1 tab 09/08/17 10:00 09/15/17 09:38 Truvada PO 1 tab DAILY SINDY Administration Enoxaparin Sodium 40 mg 09/13/17 10:00 09/15/17 09:38 Lovenox - SQ 40 mg DAILY SINDY Administration Ethambutol HCl 800 mg 09/08/17 12:00 09/15/17 09:37 Myambutol - PO 800 mg DAILY SINDY Administration Isoniazid 300 mg 09/08/17 12:00 09/15/17 09:37 Inh - PO 300 mg DAILY SINDY Administration Polyethylene Glycol 17 gm 09/13/17 06:44 Miralax (For Daily Use) - PO DAILY PRN CONSTIPATION Pyrazinamide 1,250 mg 09/08/17 11:45 09/15/17 09:38 Pyrazinamide - PO 1,250 mg DAILY SINDY Administration Pyridoxine HCl 50 mg 09/08/17 12:00 09/15/17 09:37 Vitamin B6 - PO 50 mg DAILY SINDY Administration Raltegravir 400 mg 09/09/17 22:00 09/15/17 09:38 Isentress - PO 400 mg BID SINDY Administration Rifabutin 300 mg 09/09/17 10:00 09/15/17 09:37 Mycobutin - PO 300 mg DAILY SINDY Administration CBC, BMP 09/08/17 05:25 09/10/17 05:35 Microbiology 09/15/17 08:00 Sputum - Aerosol Induced AFB Smear Concentration - Preliminary 09/15/17 08:00 Sputum - Aerosol Induced Mycobacterial Culture - Preliminary 09/13/17 11:00 Sputum - Expectorated AFB Smear Concentration - Final 09/13/17 11:00 Sputum - Expectorated Direct Acid Fast Bacilli Smear - Final 09/13/17 11:00 Sputum - Expectorated Mycobacterial Culture - Preliminary 09/12/17 20:00 Sputum - Expectorated AFB Smear Concentration - Final 09/12/17 20:00 Sputum - Expectorated Direct Acid Fast Bacilli Smear - Final 09/12/17 20:00 Sputum - Expectorated Mycobacterial Culture - Preliminary 09/06/17 17:50 Sputum - Expectorated AFB Smear Concentration - Final 09/06/17 17:50 Sputum - Expectorated Direct Acid Fast Bacilli Smear - Final 09/06/17 17:50 Sputum - Expectorated Mycobacterial Culture - Preliminary 09/07/17 12:30 Serum Cryptococcal Antigen - Final 09/07/17 15:30 Bronchial Brushings AFB Smear Concentration - Final 09/07/17 15:30 Bronchial Brushings Mycobacterial Culture - Preliminary 09/07/17 15:30 Bronchial Brushings JACK Preparation - Preliminary 09/07/17 15:30 Bronchial Brushings Fungal Culture - Preliminary 09/05/17 16:40 Urine For Antigen Detection Legionella Antigen - Final 09/05/17 16:40 Urine For Antigen Detection Streptococcus pneumoniae Antigen (M - Final ASSESSMENT/PLAN: 41 year old Monegasque M with PMHx of HIV on HAART, history of latent TB (treated in ), [place] presented to ER from HIV clinic due to abnormal CXR, found to have bilateral interstitial infiltrates with cavitary lesion. # Active TB Quantiferon+, Sputum +MTB complex, s/p bronch 09/07, [facility] notified - Tx started 09/08 (Rifabutin, INH, B6, PZA, Ethambutol), no side efx, LFTs stable # HIV - HAART meds Truvada + Isentress (we dont carry Tivicay) # Dispo - Needs continued airborne isolation for at least 2 weeks, waiting on [facility] Problem List - Problems (1) HIV disease Code(s): B20 - HUMAN IMMUNODEFICIENCY VIRUS [HIV] DISEASE (2) Tuberculosis Code(s): A15.9 - RESPIRATORY TUBERCULOSIS UNSPECIFIED Visit type - Emergency Visit Emergency Visit: Yes ED Registration Date: 09/05/17 Care time: The patient presented to the Emergency Department on the above date and was hospitalized for further evaluation of their emergent condition. - New Patient This patient is new to me today: No - Critical Care Critical Care patient: No - Discharge Referral Referred to [facility] Med P.C.: No
--- NOTE | 2017-09-15 11:45 | PN ---
Teaching Attending Note Name of Resident: Ita Snowden ATTENDING PHYSICIAN STATEMENT I saw and evaluated the patient. I reviewed the resident's note and discussed the case with the resident. I agree with the resident's findings and plan as documented. SUBJECTIVE: No new complaints, overall feels better OBJECTIVE: Vital Signs Period Temp Pulse Resp BP Sys/Chacon Pulse Ox Last 24 Hr 97.8 F-98.8 F 70-92 18-20 94-127/50-63 97 Current Medications Generic Name Dose Route Start Last Admin Trade Name Freq PRN Reason Stop Dose Admin Docusate Sodium 300 mg 09/13/17 06:45 Colace - PO HS PRN CONSTIPATION Emtricitabine/Tenofovir 1 tab 09/08/17 10:00 09/15/17 09:38 Truvada PO 1 tab DAILY SINDY Administration Enoxaparin Sodium 40 mg 09/13/17 10:00 09/15/17 09:38 Lovenox - SQ 40 mg DAILY SINDY Administration Ethambutol HCl 800 mg 09/08/17 12:00 09/15/17 09:37 Myambutol - PO 800 mg DAILY SINDY Administration Isoniazid 300 mg 09/08/17 12:00 09/15/17 09:37 Inh - PO 300 mg DAILY SINDY Administration Polyethylene Glycol 17 gm 09/13/17 06:44 Miralax (For Daily Use) - PO DAILY PRN CONSTIPATION Pyrazinamide 1,250 mg 09/08/17 11:45 09/15/17 09:38 Pyrazinamide - PO 1,250 mg DAILY SINDY Administration Pyridoxine HCl 50 mg 09/08/17 12:00 09/15/17 09:37 Vitamin B6 - PO 50 mg DAILY SINDY Administration Raltegravir 400 mg 09/09/17 22:00 09/15/17 09:38 Isentress - PO 400 mg BID SINDY Administration Rifabutin 300 mg 09/09/17 10:00 09/15/17 09:37 Mycobutin - PO 300 mg DAILY SINDY Administration Repeat AFB neg x 2, third smear concentration sent, pending so far ASSESSMENT AND PLAN: -Active Pulmonary TB -HIV on HAART, last CD4 487 -Constipation PLan: Continue INH/Pyrazinamide/Rifabutin/Ethambutol/B6 per ID recs. Need 3 neg AFB samples prior to discharge. Weekly labs/LFTs unless new clinical concerns or abdominal symptoms/jaundice. Continue HAART treatment per ID Bowel regimen. Case management/social work consult for dispo planning given current living situation.
--- NOTE | 2017-09-15 14:54 | PN ---
Teaching Attending Note Name of Resident: Ken Childers ATTENDING PHYSICIAN STATEMENT I saw and evaluated the patient. I reviewed the resident's note and discussed the case with the resident. I agree with the resident's findings and plan as documented. SUBJECTIVE:TB meds week 2 OBJECTIVE: ASSESSMENT AND PLAN: Selected Entries 09/15/17 06:00 Temperature 98 F Pulse Rate 92 H Respiratory 20 Rate Blood Pressure 94/50 Microbiology 09/13/17 11:00 Sputum - Expectorated AFB Smear Concentration - Final 09/13/17 11:00 Sputum - Expectorated Direct Acid Fast Bacilli Smear - Final 09/12/17 20:00 Sputum - Expectorated AFB Smear Concentration - Final 09/12/17 20:00 Sputum - Expectorated Direct Acid Fast Bacilli Smear - Final 09/15/17 08:00 Sputum - Aerosol Induced AFB Smear Concentration - Preliminary 09/15/17 08:00 Sputum - Aerosol Induced Mycobacterial Culture - Preliminary 09/13/17 11:00 Sputum - Expectorated Mycobacterial Culture - Preliminary 09/12/17 20:00 Sputum - Expectorated Mycobacterial Culture - Preliminary Laboratory Tests 09/10/17 09/14/17 05:35 06:40 BUN 19 H Creatinine 1.3 Alkaline Phosphatase 137 H ASsessment Cavitary M TB and HIV Plan Will need at least another week in the hospital before discharge and then hopefully home isolation Unless [facility] feels can go home sooner ? Problem List - Problems (1) Pneumonia Code(s): J18.9 - PNEUMONIA, UNSPECIFIED ORGANISM (2) HIV (human immunodeficiency virus infection) Code(s): Z21 - ASYMPTOMATIC HUMAN IMMUNODEFICIENCY VIRUS INFECTION STATUS
--- NOTE | 2017-09-16 08:29 | PN ---
Physical Exam: SUBJECTIVE: Patient seen and examined. Doing well, no complaints. No fevers, chills, CP, abd pain, nausea, vomitting, joint pain, vision changes. STill has red urine. OBJECTIVE: Vital Signs Period Temp Pulse Resp BP Sys/Chacon Pulse Ox Last 24 Hr 97.8 F-98.9 F 64-88 18-20 93-103/44-68 96-98 GEN: AAOx3, NAD, lying comfortably in bed HEENT: PERRLA, EOMi CV: S1, S2, RRR LUNG: CTAB: ABD: Soft, NT, ND, normoactive BS MSK: No edema, no erythema NEURO: No sensation or MSK deficits Active Medications Generic Name Dose Route Start Last Admin Trade Name Freq PRN Reason Stop Dose Admin Docusate Sodium 300 mg 09/13/17 06:45 Colace - PO HS PRN CONSTIPATION Emtricitabine/Tenofovir 1 tab 09/08/17 10:00 09/15/17 09:38 Truvada PO 1 tab DAILY SINDY Administration Enoxaparin Sodium 40 mg 09/13/17 10:00 09/15/17 09:38 Lovenox - SQ 40 mg DAILY SINDY Administration Ethambutol HCl 800 mg 09/08/17 12:00 09/15/17 09:37 Myambutol - PO 800 mg DAILY SINDY Administration Isoniazid 300 mg 09/08/17 12:00 09/15/17 09:37 Inh - PO 300 mg DAILY SINDY Administration Polyethylene Glycol 17 gm 09/13/17 06:44 Miralax (For Daily Use) - PO DAILY PRN CONSTIPATION Pyrazinamide 1,250 mg 09/08/17 11:45 09/15/17 09:38 Pyrazinamide - PO 1,250 mg DAILY SINDY Administration Pyridoxine HCl 50 mg 09/08/17 12:00 09/15/17 09:37 Vitamin B6 - PO 50 mg DAILY SINDY Administration Raltegravir 400 mg 09/09/17 22:00 09/15/17 22:04 Isentress - PO 400 mg BID SINDY Administration Rifabutin 300 mg 09/09/17 10:00 09/15/17 09:37 Mycobutin - PO 300 mg DAILY SINDY Administration ASSESSMENT/PLAN: 41 year old Trinidadian M with PMHx of HIV on HAART, history of latent TB (treated in ), [place] presented to ER from HIV clinic due to abnormal CXR, found to have bilateral interstitial infiltrates with cavitary lesion. # Active TB Quantiferon+, Sputum +MTB complex, s/p bronch 09/07 - Tx started 09/08 (Rifabutin, INH, B6, PZA, Ethambutol), no side sfx, LFTs stable - Has 1 negative sputum so far, needs 3 # HIV - HAART meds Truvada + Isentress (we dont carry Tivicay) # Constipation - Change miralax and colace to PRN # FEN - No IVF, elect stable, Regular diet w/ Ensure # PPx - Lovenox SQD # Dispo - [facility] notified by infection control. Speaking with infection control contact about sputum Visit type - Emergency Visit Emergency Visit: No - New Patient This patient is new to me today: No - Critical Care Critical Care patient: No - Discharge Referral Referred to [facility] Med P.C.: No
[2017-09-16] MEDS ORDERED: PT OWN MED DRAWER 7, Y5N ONE (09:23)
[2017-09-16] MEDS: PYRAZINAMIDE 500 MG TABLET PO SCH (10:55)
[2017-09-16] MEDS: ISONIAZID 300 MG TABLET (FP) PO SCH (10:55)
[2017-09-16] MEDS: ETHAMBUTOL HCL 400 MG TABLET PO SCH (10:55)
[2017-09-16] MEDS: RALTEGRAVIR POTASSIUM 400 MG TAB PO SCH ×2 (10:55→21:30)
[2017-09-16] MEDS: EMTRICITABINE 200MG/TENOFOVIR 300MG PO SCH (10:55)
[2017-09-16] MEDS: RIFABUTIN 150 MG CAPSULE PO SCH (10:55)
[2017-09-16] MEDS: PYRIDOXINE HCL (B-6) 50 MG TABLET (FP) PO SCH (10:55)
[2017-09-16] MEDS: ENOXAPARIN NA (PORCINE) 40 MG/0.4 ML DISP.SYRIN SQ SCH (10:55)
--- NOTE | 2017-09-16 11:33 | PN ---
Physical Exam: SUBJECTIVE: Patient seen and examined at bedside. No acute events over night , no new complains, denies any medication side effects. OBJECTIVE: Vital Signs Period Temp Pulse Resp BP Sys/Chacon Pulse Ox Last 24 Hr 97.8 F-98.9 F 64-88 18-20 93-103/44-68 96 GENERAL: Awake, alert, and fully oriented, in no acute distress. HEAD: Normal with no signs of trauma. EYES: sclera anicteric, conjunctiva clear. EARS, NOSE, THROAT: Moist mucous membranes. LUNGS: Breath sounds equal, clear to auscultation bilaterally. No wheezes, and no crackles. No accessory muscle use. HEART: Regular rate and rhythm, normal S1 and S2 without murmur, rub or gallop. ABDOMEN: Soft, nontender, not distended, normoactive bowel sounds, no guarding, no rebound. LOWER EXTREMITIES:warm, well-perfused. No calf tenderness. No peripheral edema. NEUROLOGICAL: good mentation, no focal deficit SKIN: Warm, dry, no rashes or lesions noted. Active Medications Generic Name Dose Route Start Last Admin Trade Name Freq PRN Reason Stop Dose Admin Docusate Sodium 300 mg 09/13/17 06:45 Colace - PO HS PRN CONSTIPATION Emtricitabine/Tenofovir 1 tab 09/08/17 10:00 09/16/17 10:55 Truvada PO 1 tab DAILY SINDY Administration Enoxaparin Sodium 40 mg 09/13/17 10:00 09/16/17 10:55 Lovenox - SQ 40 mg DAILY SINDY Administration Ethambutol HCl 800 mg 09/08/17 12:00 09/16/17 10:55 Myambutol - PO 800 mg DAILY SINDY Administration Isoniazid 300 mg 09/08/17 12:00 09/16/17 10:55 Inh - PO 300 mg DAILY SINDY Administration Polyethylene Glycol 17 gm 09/13/17 06:44 Miralax (For Daily Use) - PO DAILY PRN CONSTIPATION Pyrazinamide 1,250 mg 09/08/17 11:45 09/16/17 10:55 Pyrazinamide - PO 1,250 mg DAILY SINDY Administration Pyridoxine HCl 50 mg 09/08/17 12:00 09/16/17 10:55 Vitamin B6 - PO 50 mg DAILY SINDY Administration Raltegravir 400 mg 09/09/17 22:00 09/16/17 10:55 Isentress - PO 400 mg BID SINDY Administration Rifabutin 300 mg 09/09/17 10:00 09/16/17 10:55 Mycobutin - PO 300 mg DAILY SINDY Administration Microbiology 09/06/17 17:50 Sputum - Expectorated AFB Smear Concentration - Final 09/06/17 17:50 Sputum - Expectorated Direct Acid Fast Bacilli Smear - Final 09/06/17 17:50 Sputum - Expectorated Mycobacterial Culture - Preliminary Acid Fast Bacillus 09/15/17 08:00 Sputum - Aerosol Induced AFB Smear Concentration - Final 09/15/17 08:00 Sputum - Aerosol Induced Direct Acid Fast Bacilli Smear - Final 09/15/17 08:00 Sputum - Aerosol Induced Mycobacterial Culture - Preliminary 09/13/17 11:00 Sputum - Expectorated AFB Smear Concentration - Final 09/13/17 11:00 Sputum - Expectorated Direct Acid Fast Bacilli Smear - Final 09/13/17 11:00 Sputum - Expectorated Mycobacterial Culture - Preliminary 09/12/17 20:00 Sputum - Expectorated AFB Smear Concentration - Final 09/12/17 20:00 Sputum - Expectorated Direct Acid Fast Bacilli Smear - Final 09/12/17 20:00 Sputum - Expectorated Mycobacterial Culture - Preliminary 09/07/17 12:30 Serum Cryptococcal Antigen - Final 09/07/17 15:30 Bronchial Brushings AFB Smear Concentration - Final 09/07/17 15:30 Bronchial Brushings Mycobacterial Culture - Preliminary 09/07/17 15:30 Bronchial Brushings JACK Preparation - Preliminary 09/07/17 15:30 Bronchial Brushings Fungal Culture - Preliminary 09/05/17 16:40 Urine For Antigen Detection Legionella Antigen - Final 09/05/17 16:40 Urine For Antigen Detection Streptococcus pneumoniae Antigen (M - Final CBC, BMP 09/08/17 05:25 09/10/17 05:35 ASSESSMENT/PLAN: 41 year old Australian M with PMHx of HIV on HAART, history of latent TB ([place] in ), [place] presented to ER from HIV clinic due to abnormal CXR, found to have bilateral interstitial infiltrates with cavitary lesion. # Active TB Quantiferon+, Sputum +MTB complex, s/p bronch 09/07, [facility] notified - Tx started 09/08 (Rifabutin, INH, B6, PZA, Ethambutol), no side efx, LFTs stable - 3rd AFB is negative today # HIV - HAART meds Truvada + Isentress (we dont carry Tivicay) # Dispo - Needs continued airborne isolation for at least 2 weeks, waiting on [facility] Problem List - Problems (1) HIV disease Code(s): B20 - HUMAN IMMUNODEFICIENCY VIRUS [HIV] DISEASE (2) Tuberculosis Code(s): A15.9 - RESPIRATORY TUBERCULOSIS UNSPECIFIED
--- NOTE | 2017-09-16 13:42 | PN ---
Teaching Attending Note Name of Resident: Ita Snowden ATTENDING PHYSICIAN STATEMENT I saw and evaluated the patient. I reviewed the resident's note and discussed the case with the resident. I agree with the resident's findings and plan as documented. SUBJECTIVE: no complaints, new symptoms OBJECTIVE: Vital Signs Period Temp Pulse Resp BP Sys/Chacon Pulse Ox Last 24 Hr 97.8 F-98.9 F 64-88 18-20 93-103/44-68 96 Intake & Output 09/13/17 09/14/17 09/15/17 09/16/17 23:59 23:59 23:59 23:59 Intake Total 660 1360 1800 200 Balance 660 1360 1800 200 ASSESSMENT AND PLAN: -Active Pulmonary TB -HIV on HAART, last CD4 487 -Constipation PLan: Continue INH/Pyrazinamide/Rifabutin/Ethambutol/B6 per ID recs. Need 3 neg AFB samples prior to discharge. Weekly labs/LFTs unless new clinical concerns or abdominal symptoms/jaundice. Continue HAART treatment per ID Bowel regimen. Case management/social work consult for dispo planning given current living situation.
[2017-09-17] MEDS ORDERED: PT OWN MED DRAWER 7, Y5N ONE ×2 (09:41→19:49)
[2017-09-17] MEDS: EMTRICITABINE 200MG/TENOFOVIR 300MG PO SCH (10:00)
[2017-09-17] MEDS: PYRAZINAMIDE 500 MG TABLET PO SCH (10:00)
[2017-09-17] MEDS: ENOXAPARIN NA (PORCINE) 40 MG/0.4 ML DISP.SYRIN SQ SCH (10:01)
[2017-09-17] MEDS: ETHAMBUTOL HCL 400 MG TABLET PO SCH (10:01)
[2017-09-17] MEDS: PYRIDOXINE HCL (B-6) 50 MG TABLET (FP) PO SCH (10:01)
[2017-09-17] MEDS: RIFABUTIN 150 MG CAPSULE PO SCH (10:01)
[2017-09-17] MEDS: ISONIAZID 300 MG TABLET (FP) PO SCH (10:02)
[2017-09-17] MEDS: RALTEGRAVIR POTASSIUM 400 MG TAB PO SCH ×2 (10:02→21:57)
--- NOTE | 2017-09-17 11:20 | PN ---
Physical Exam: SUBJECTIVE: Patient seen and examined. Doing well. No complaints. No TB med sfx (no red urine, no joint pain, no N/V/abd pain, no vision changes) OBJECTIVE: Vital Signs Period Temp Pulse Resp BP Sys/Chacon Pulse Ox Last 24 Hr 98.1 F-98.2 F 66-100 18-18 90-107/56-62 98 GEN: AAOx3, NAD, lying comfortably in bed HEENT: PERRLA, EOMi CV: S1, S2, RRR LUNG: CTAB: ABD: Soft, NT, ND, normoactive BS MSK: No edema, no erythema NEURO: No sensation or MSK deficits Active Medications Generic Name Dose Route Start Last Admin Trade Name Freq PRN Reason Stop Dose Admin Docusate Sodium 300 mg 09/13/17 06:45 Colace - PO HS PRN CONSTIPATION Emtricitabine/Tenofovir 1 tab 09/08/17 10:00 09/17/17 10:00 Truvada PO 1 tab DAILY SINDY Administration Enoxaparin Sodium 40 mg 09/13/17 10:00 09/17/17 10:01 Lovenox - SQ 40 mg DAILY SINDY Administration Ethambutol HCl 800 mg 09/08/17 12:00 09/17/17 10:01 Myambutol - PO 800 mg DAILY SINDY Administration Isoniazid 300 mg 09/08/17 12:00 09/17/17 10:02 Inh - PO 300 mg DAILY SINDY Administration Polyethylene Glycol 17 gm 09/13/17 06:44 Miralax (For Daily Use) - PO DAILY PRN CONSTIPATION Pyrazinamide 1,250 mg 09/08/17 11:45 09/17/17 10:00 Pyrazinamide - PO 1,250 mg DAILY SINDY Administration Pyridoxine HCl 50 mg 09/08/17 12:00 09/17/17 10:01 Vitamin B6 - PO 50 mg DAILY SINDY Administration Raltegravir 400 mg 09/09/17 22:00 09/17/17 10:02 Isentress - PO 400 mg BID SINDY Administration Rifabutin 300 mg 09/09/17 10:00 09/17/17 10:01 Mycobutin - PO 300 mg DAILY SINDY Administration ASSESSMENT/PLAN: 41 year old [place] M with PMHx of HIV on HAART, history of latent TB (treated in ), [place] presented to ER from HIV clinic due to abnormal CXR, found to have bilateral interstitial infiltrates with cavitary lesion. # Active TB Quantiferon+, Sputum +MTB complex, s/p bronch 09/07 - Tx started 09/08 (Rifabutin, INH, B6, PZA, Ethambutol), no side sfx, LFTs stable - Has 1 negative sputum so far, needs 3 - Speak to ID Tuesday about regimen given 2 positive samples since tx # HIV - HAART meds Truvada + Isentress (we dont carry Tivicay) # Constipation - PRN miralax and colace # FEN - No IVF, elect stable, Regular diet w/ Ensure # PPx - Lovenox SQD # Dispo - Infection control and [facility] are on the case, [facility] needs to visit his future residence, will determine dispo Visit type - Emergency Visit Emergency Visit: No - New Patient This patient is new to me today: No - Critical Care Critical Care patient: No - Discharge Referral Referred to [facility] Med P.C.: No
--- NOTE | 2017-09-17 13:30 | PN ---
Teaching Attending Note Name of Resident: Ita Snowden ATTENDING PHYSICIAN STATEMENT I saw and evaluated the patient. I reviewed the resident's note and discussed the case with the resident. I agree with the resident's findings and plan as documented. SUBJECTIVE: no new complaints. OBJECTIVE: Vital Signs Period Temp Pulse Resp BP Sys/Chacon Pulse Ox Last 24 Hr 98.1 F-98.2 F 66-100 18-18 90-107/56-62 98 Current Medications Docusate Sodium (Colace -) 300 mg PO HS PRN PRN Reason: CONSTIPATION Emtricitabine/Tenofovir (Truvada) 1 tab PO DAILY [facility] Last Admin: 09/17/17 10:00 Dose: 1 tab Enoxaparin Sodium (Lovenox -) 40 mg SQ DAILY [facility] Last Admin: 09/17/17 10:01 Dose: 40 mg Ethambutol HCl (Myambutol -) 800 mg PO DAILY [facility] Last Admin: 09/17/17 10:01 Dose: 800 mg Isoniazid (Inh -) 300 mg PO DAILY [facility] Last Admin: 09/17/17 10:02 Dose: 300 mg Polyethylene Glycol (Miralax (For Daily Use) -) 17 gm PO DAILY PRN PRN Reason: CONSTIPATION Pyrazinamide (Pyrazinamide -) 1,250 mg PO DAILY [facility] Last Admin: 09/17/17 10:00 Dose: 1,250 mg Pyridoxine HCl (Vitamin B6 -) 50 mg PO DAILY [facility] Last Admin: 09/17/17 10:01 Dose: 50 mg Raltegravir (Isentress -) 400 mg PO BID [facility] Last Admin: 09/17/17 10:02 Dose: 400 mg Rifabutin (Mycobutin -) 300 mg PO DAILY [facility] Last Admin: 09/17/17 10:01 Dose: 300 mg ASSESSMENT AND PLAN: -Active Pulmonary TB -HIV on HAART, last CD4 487 -Constipation PLan: Continue INH/Pyrazinamide/Rifabutin/Ethambutol/B6 per ID recs. Recent AFB from 09/12-09/13 positive, final neg so far. Discuss with ID about TB regimen if persistently positive AFB sputum. Weekly labs/LFTs unless new clinical concerns or abdominal symptoms/jaundice. Continue HAART treatment per ID Bowel regimen. Case management/social work consult for dispo planning given current living situation.
[2017-09-18] MEDS ORDERED: PT OWN MED DRAWER 7, Y5N ONE ×2 (09:30→19:42)
[2017-09-18] MEDS: ISONIAZID 300 MG TABLET (FP) PO SCH (09:33)
[2017-09-18] MEDS: RALTEGRAVIR POTASSIUM 400 MG TAB PO SCH ×2 (09:34→21:21)
[2017-09-18] MEDS: RIFABUTIN 150 MG CAPSULE PO SCH (09:35)
[2017-09-18] MEDS: PYRAZINAMIDE 500 MG TABLET PO SCH (09:35)
[2017-09-18] MEDS: ETHAMBUTOL HCL 400 MG TABLET PO SCH (09:35)
[2017-09-18] MEDS: PYRIDOXINE HCL (B-6) 50 MG TABLET (FP) PO SCH (09:37)
[2017-09-18] MEDS: EMTRICITABINE 200MG/TENOFOVIR 300MG PO SCH (09:37)
[2017-09-18] MEDS: ENOXAPARIN NA (PORCINE) 40 MG/0.4 ML DISP.SYRIN SQ SCH (09:40)
--- NOTE | 2017-09-18 16:00 | PN ---
Teaching Attending Note Name of Resident: Mora Newsome ATTENDING PHYSICIAN STATEMENT SUBJECTIVE: Patient seen and examined. No complaints. OBJECTIVE: Vital Signs Period Temp Pulse Resp BP Sys/Chacon Pulse Ox Last 24 Hr 97.3 F-98.9 F 68-94 16-20 86-120/53-109 Intake & Output 09/15/17 09/16/17 09/17/17 09/18/17 23:59 23:59 23:59 23:59 Intake Total 1800 510 410 800 Balance 1800 510 410 800 General ambulating in room in no acute distress CVS S1S2 regular chest CTAB, no rales or wheezing abdomen soft, NT, ND, positive bowel sounds Current Medications Docusate Sodium (Colace -) 300 mg PO HS PRN PRN Reason: CONSTIPATION Emtricitabine/Tenofovir (Truvada) 1 tab PO DAILY [facility] Last Admin: 09/18/17 09:37 Dose: 1 tab Enoxaparin Sodium (Lovenox -) 40 mg SQ DAILY [facility] Last Admin: 09/18/17 09:40 Dose: Not Given Ethambutol HCl (Myambutol -) 800 mg PO DAILY [facility] Last Admin: 09/18/17 09:35 Dose: 800 mg Isoniazid (Inh -) 300 mg PO DAILY [facility] Last Admin: 09/18/17 09:33 Dose: 300 mg Polyethylene Glycol (Miralax (For Daily Use) -) 17 gm PO DAILY PRN PRN Reason: CONSTIPATION Pyrazinamide (Pyrazinamide -) 1,250 mg PO DAILY [facility] Last Admin: 09/18/17 09:35 Dose: 1,250 mg Pyridoxine HCl (Vitamin B6 -) 50 mg PO DAILY [facility] Last Admin: 09/18/17 09:37 Dose: 50 mg Raltegravir (Isentress -) 400 mg PO BID [facility] Last Admin: 09/18/17 09:34 Dose: 400 mg Rifabutin (Mycobutin -) 300 mg PO DAILY [facility] Last Admin: 09/18/17 09:35 Dose: 300 mg ASSESSMENT AND PLAN: -Active Pulmonary TB -HIV on HAART, last CD4 487 -Constipation PLan: Continue INH/Pyrazinamide/Rifabutin/Ethambutol/B6 per ID recs. Recent AFB from 09/12-09/13 positive, final neg so far. Discuss with ID about TB regimen if persistently positive AFB sputum. Monthly labs/LFTs unless new clinical concerns or abdominal symptoms/jaundice. Continue HAART treatment per ID Bowel regimen. Case management/social work consult for dispo planning given current living situation.
[2017-09-19] MEDS ORDERED: PT OWN MED DRAWER 7, Y5N ONE ×3 (09:35→20:24)
--- NOTE | 2017-09-19 09:42 | PN ---
Progress Note (short form) - Note Progress Note: PULMONARY Denies fevers or chills. Tolerating TB meds. No cough. Last Vital Signs Temp Pulse Resp BP Pulse Ox 98.5 F 67 20 99/58 100 09/19/17 05:00 09/19/17 05:00 09/19/17 05:00 09/19/17 05:00 09/18/17 21:00 Gen: NAD at rest Heart: RRR Lung: scattered basilar rales Abd: soft, nontender Ext: no edema CBC, BMP 09/08/17 05:25 09/10/17 05:35 Active Medications Docusate Sodium (Colace -) 300 mg PO HS PRN PRN Reason: CONSTIPATION Emtricitabine/Tenofovir (Truvada) 1 tab PO DAILY [facility] Last Admin: 09/18/17 09:37 Dose: 1 tab Enoxaparin Sodium (Lovenox -) 40 mg SQ DAILY [facility] Last Admin: 09/18/17 09:40 Dose: Not Given Ethambutol HCl (Myambutol -) 800 mg PO DAILY [facility] Last Admin: 09/18/17 09:35 Dose: 800 mg Isoniazid (Inh -) 300 mg PO DAILY [facility] Last Admin: 09/18/17 09:33 Dose: 300 mg Polyethylene Glycol (Miralax (For Daily Use) -) 17 gm PO DAILY PRN PRN Reason: CONSTIPATION Pyrazinamide (Pyrazinamide -) 1,250 mg PO DAILY [facility] Last Admin: 09/18/17 09:35 Dose: 1,250 mg Pyridoxine HCl (Vitamin B6 -) 50 mg PO DAILY [facility] Last Admin: 09/18/17 09:37 Dose: 50 mg Raltegravir (Isentress -) 400 mg PO BID [facility] Last Admin: 09/18/17 21:21 Dose: 400 mg Rifabutin (Mycobutin -) 300 mg PO DAILY [facility] Last Admin: 09/18/17 09:35 Dose: 300 mg A/P Pulmonary TB HIV - continue antibiotics - last 3 sputum samples with negative smear - awaiting [facility] clearance for discharge Problem List - Problems (1) Pneumonia Code(s): J18.9 - PNEUMONIA, UNSPECIFIED ORGANISM (2) HIV (human immunodeficiency virus infection) Code(s): Z21 - ASYMPTOMATIC HUMAN IMMUNODEFICIENCY VIRUS INFECTION STATUS
[2017-09-19] MEDS: EMTRICITABINE 200MG/TENOFOVIR 300MG PO SCH (09:48)
[2017-09-19] MEDS: PYRAZINAMIDE 500 MG TABLET PO SCH (09:48)
[2017-09-19] MEDS: ISONIAZID 300 MG TABLET (FP) PO SCH (09:50)
[2017-09-19] MEDS: RALTEGRAVIR POTASSIUM 400 MG TAB PO SCH ×2 (09:50→21:14)
[2017-09-19] MEDS: ENOXAPARIN NA (PORCINE) 40 MG/0.4 ML DISP.SYRIN SQ SCH (09:51)
[2017-09-19] MEDS: ETHAMBUTOL HCL 400 MG TABLET PO SCH (09:51)
[2017-09-19] MEDS: RIFABUTIN 150 MG CAPSULE PO SCH (09:52)
[2017-09-19] MEDS: PYRIDOXINE HCL (B-6) 50 MG TABLET (FP) PO SCH (09:52)
--- NOTE | 2017-09-19 13:26 | PN ---
Physical Exam: SUBJECTIVE: Patient seen and examined at bedside. No acute events over night. No medication side effects. OBJECTIVE: Vital Signs Period Temp Pulse Resp BP Sys/Chacon Pulse Ox Last 24 Hr 98 F-98.9 F 67-79 16-20 88-100/58-75 100 GENERAL: Awake, alert, and fully oriented, in no acute distress. HEAD: Normal with no signs of trauma. EYES: sclera anicteric, conjunctiva clear. EARS, NOSE, THROAT: Moist mucous membranes. LUNGS: Breath sounds equal, clear to auscultation bilaterally. No wheezes, and no crackles. No accessory muscle use. HEART: Regular rate and rhythm, normal S1 and S2 without murmur, rub or gallop. ABDOMEN: Soft, nontender, not distended, normoactive bowel sounds, no guarding, no rebound. LOWER EXTREMITIES:warm, well-perfused. No calf tenderness. No peripheral edema. NEUROLOGICAL: good mentation, no focal deficit SKIN: Warm, dry, no rashes or lesions noted. Active Medications Generic Name Dose Route Start Last Admin Trade Name Freq PRN Reason Stop Dose Admin Docusate Sodium 300 mg 09/13/17 06:45 Colace - PO HS PRN CONSTIPATION Emtricitabine/Tenofovir 1 tab 09/08/17 10:00 09/19/17 09:48 Truvada PO 1 tab DAILY SINDY Administration Enoxaparin Sodium 40 mg 09/13/17 10:00 09/19/17 09:51 Lovenox - SQ 40 mg DAILY SINDY Administration Ethambutol HCl 800 mg 09/08/17 12:00 09/19/17 09:51 Myambutol - PO 800 mg DAILY SINDY Administration Isoniazid 300 mg 09/08/17 12:00 09/19/17 09:50 Inh - PO 300 mg DAILY SINDY Administration Polyethylene Glycol 17 gm 09/13/17 06:44 Miralax (For Daily Use) - PO DAILY PRN CONSTIPATION Pyrazinamide 1,250 mg 09/08/17 11:45 09/19/17 09:48 Pyrazinamide - PO 1,250 mg DAILY SINDY Administration Pyridoxine HCl 50 mg 09/08/17 12:00 09/19/17 09:52 Vitamin B6 - PO 50 mg DAILY SINDY Administration Raltegravir 400 mg 09/09/17 22:00 09/19/17 09:50 Isentress - PO 400 mg BID SINDY Administration Rifabutin 300 mg 09/09/17 10:00 09/19/17 09:52 Mycobutin - PO 300 mg DAILY SINDY Administration ASSESSMENT/PLAN: 41 year old [place] M with PMHx of HIV on HAART, history of latent TB (treated in ), [place] presented to ER from HIV clinic due to abnormal CXR, found to have bilateral interstitial infiltrates with cavitary lesion. # Active TB Quantiferon+, Sputum +MTB complex, s/p bronch 09/07, [facility] notified - Tx started 09/08 (Rifabutin, INH, B6, PZA, Ethambutol), no side efx, LFTs stable - 3rd AFB is negative today # HIV - HAART meds Truvada + Isentress (we dont carry Tivicay) # Dispo - Needs continued airborne isolation for at least 2 weeks, waiting on [facility], his need to be tested. Problem List - Problems (1) HIV disease Code(s): B20 - HUMAN IMMUNODEFICIENCY VIRUS [HIV] DISEASE (2) Tuberculosis Code(s): A15.9 - RESPIRATORY TUBERCULOSIS UNSPECIFIED
--- NOTE | 2017-09-19 13:55 | PN ---
Teaching Attending Note Name of Resident: Ken Childers ATTENDING PHYSICIAN STATEMENT I saw and evaluated the patient. I reviewed the resident's note and discussed the case with the resident. I agree with the resident's findings and plan as documented. SUBJECTIVE:TB meds along with ART week 2 OBJECTIVE:Asymptomatic ASSESSMENT AND PLAN: Laboratory Tests 09/14/17 06:40 AST 38 H D ALT 50 D Alkaline Phosphatase 137 H Assessment Pulmonary TB Plan Awaiting TB department ok to discharge home Leon MCKOY Problem List - Problems (1) Pneumonia Code(s): J18.9 - PNEUMONIA, UNSPECIFIED ORGANISM (2) HIV (human immunodeficiency virus infection) Code(s): Z21 - ASYMPTOMATIC HUMAN IMMUNODEFICIENCY VIRUS INFECTION STATUS
--- NOTE | 2017-09-19 16:53 | PN ---
Teaching Attending Note Name of Resident: Ita Snowden ATTENDING PHYSICIAN STATEMENT Time of evaluation: 10:50 AM I saw and evaluated the patient. I reviewed the resident's note and discussed the case with the resident. I agree with the resident's findings and plan as documented. SUBJECTIVE: No new complaints. OBJECTIVE: Vital Signs Period Temp Pulse Resp BP Sys/Chacon Pulse Ox Last 24 Hr 98 F-98.5 F 67-79 18-20 88-130/58-75 100-100 Current Medications Docusate Sodium (Colace -) 300 mg PO HS PRN PRN Reason: CONSTIPATION Emtricitabine/Tenofovir (Truvada) 1 tab PO DAILY [facility] Last Admin: 09/19/17 09:48 Dose: 1 tab Enoxaparin Sodium (Lovenox -) 40 mg SQ DAILY [facility] Last Admin: 09/19/17 09:51 Dose: 40 mg Ethambutol HCl (Myambutol -) 800 mg PO DAILY [facility] Last Admin: 09/19/17 09:51 Dose: 800 mg Isoniazid (Inh -) 300 mg PO DAILY [facility] Last Admin: 09/19/17 09:50 Dose: 300 mg Polyethylene Glycol (Miralax (For Daily Use) -) 17 gm PO DAILY PRN PRN Reason: CONSTIPATION Pyrazinamide (Pyrazinamide -) 1,250 mg PO DAILY [facility] Last Admin: 09/19/17 09:48 Dose: 1,250 mg Pyridoxine HCl (Vitamin B6 -) 50 mg PO DAILY [facility] Last Admin: 09/19/17 09:52 Dose: 50 mg Raltegravir (Isentress -) 400 mg PO BID [facility] Last Admin: 09/19/17 09:50 Dose: 400 mg Rifabutin (Mycobutin -) 300 mg PO DAILY [facility] Last Admin: 09/19/17 09:52 Dose: 300 mg ASSESSMENT AND PLAN: -Active Pulmonary TB -HIV on HAART, last CD4 487 -Constipation PLan: Continue INH/Pyrazinamide/Rifabutin/Ethambutol/B6 per ID recs. Recent AFB from 09/12-09/13 positive, final neg so far. Space out AFB sputum to repeat in 1 week. Monthly labs/LFTs unless new clinical concerns or abdominal symptoms/jaundice. Continue HAART treatment per ID Bowel regimen. Case management/social work consult for dispo planning given current living situation.
--- NOTE | 2017-09-19 17:02 | PN ---
Physical Exam: SUBJECTIVE: Patient seen and examined. Doing well. No complaints. No joint pain , no vision changes, no fevers, no chills. no CP, no SOB. OBJECTIVE: Vital Signs Period Temp Pulse Resp BP Sys/Chacon Pulse Ox Last 24 Hr 98 F-98.5 F 67-79 18-20 88-130/58-75 100-100 GEN: AAOx3, NAD, lying comfortably in bed HEENT: PERRLA, EOMi CV: S1, S2, RRR LUNG: CTAB: ABD: Soft, NT, ND, normoactive BS MSK: No edema, no erythema NEURO: No sensation or MSK deficits Active Medications Generic Name Dose Route Start Last Admin Trade Name Freq PRN Reason Stop Dose Admin Docusate Sodium 300 mg 09/13/17 06:45 Colace - PO HS PRN CONSTIPATION Emtricitabine/Tenofovir 1 tab 09/08/17 10:00 09/19/17 09:48 Truvada PO 1 tab DAILY [facility]Y Administration Enoxaparin Sodium 40 mg 09/13/17 10:00 09/19/17 09:51 Lovenox - SQ 40 mg DAILY SINDY Administration Ethambutol HCl 800 mg 09/08/17 12:00 09/19/17 09:51 Myambutol - PO 800 mg DAILY SINDY Administration Isoniazid 300 mg 09/08/17 12:00 09/19/17 09:50 Inh - PO 300 mg DAILY SINDY Administration Polyethylene Glycol 17 gm 09/13/17 06:44 Miralax (For Daily Use) - PO DAILY PRN CONSTIPATION Pyrazinamide 1,250 mg 09/08/17 11:45 09/19/17 09:48 Pyrazinamide - PO 1,250 mg DAILY SINDY Administration Pyridoxine HCl 50 mg 09/08/17 12:00 09/19/17 09:52 Vitamin B6 - PO 50 mg DAILY SINDY Administration Raltegravir 400 mg 09/09/17 22:00 09/19/17 09:50 Isentress - PO 400 mg BID SINDY Administration Rifabutin 300 mg 09/09/17 10:00 09/19/17 09:52 Mycobutin - PO 300 mg DAILY SINDY Administration ASSESSMENT/PLAN: 41 year old [place] M with PMHx of HIV on HAART, history of latent TB ([place] ), [place] presented to ER from HIV clinic due to abnormal CXR, found to have bilateral interstitial infiltrates with cavitary lesion. # Active TB Quantiferon+, Sputum +MTB complex, s/p bronch 09/07 - Tx started 09/08 (Rifabutin, INH, B6, PZA, Ethambutol), no side sfx, LFTs stable, has 1 negative sputum so far, needs 3 # HIV - HAART meds Truvada + Isentress (we dont carry Tivicay) # Constipation - PRN miralax and colace # FEN - No IVF, elect stable, Regular diet w/ Ensure # PPx - Lovenox SQD # Dispo - Infection control and [facility] are on the case, [facility] needs to visit his future residence, will determine dispo d/w Dr Mercedez Snowden MD - PGY1 Internal Medicine Visit type - Emergency Visit Emergency Visit: No - New Patient This patient is new to me today: No - Critical Care Critical Care patient: No - Discharge Referral Referred to [facility] Med P.C.: No
[2017-09-20 06:29] VITALS: BP 90/55; PULSE 66; TEMP 98.2
[2017-09-20] MEDS ORDERED: PT OWN MED DRAWER 7, Y5N ONE (09:08)
--- NOTE | 2017-09-20 09:13 | PN ---
Physical Exam: SUBJECTIVE: Patient seen and examined. No complaints. No joint pain, vision changes, fevers, chills, CP, SOB. OBJECTIVE: Vital Signs Period Temp Pulse Resp BP Sys/Chacon Pulse Ox Last 24 Hr 97.7 F-98.2 F 66-72 18-20 90-130/49-64 100 GEN: AAOx3, NAD, lying comfortably in bed HEENT: PERRLA, EOMi CV: S1, S2, RRR LUNG: CTAB: ABD: Soft, NT, ND, normoactive BS MSK: No edema, no erythema NEURO: No sensation or MSK deficits Active Medications Generic Name Dose Route Start Last Admin Trade Name Freq PRN Reason Stop Dose Admin Docusate Sodium 300 mg 09/13/17 06:45 Colace - PO HS PRN CONSTIPATION Emtricitabine/Tenofovir 1 tab 09/08/17 10:00 09/19/17 09:48 Truvada PO 1 tab DAILY SINDY Administration Enoxaparin Sodium 40 mg 09/13/17 10:00 09/19/17 09:51 Lovenox - SQ 40 mg DAILY SINDY Administration Ethambutol HCl 800 mg 09/08/17 12:00 09/19/17 09:51 Myambutol - PO 800 mg DAILY SINDY Administration Isoniazid 300 mg 09/08/17 12:00 09/19/17 09:50 Inh - PO 300 mg DAILY SINDY Administration Polyethylene Glycol 17 gm 09/13/17 06:44 Miralax (For Daily Use) - PO DAILY PRN CONSTIPATION Pyrazinamide 1,250 mg 09/08/17 11:45 09/19/17 09:48 Pyrazinamide - PO 1,250 mg DAILY SINDY Administration Pyridoxine HCl 50 mg 09/08/17 12:00 09/19/17 09:52 Vitamin B6 - PO 50 mg DAILY SINDY Administration Raltegravir 400 mg 09/09/17 22:00 09/19/17 21:14 Isentress - PO 400 mg BID SINDY Administration Rifabutin 300 mg 09/09/17 10:00 09/19/17 09:52 Mycobutin - PO 300 mg DAILY SINDY Administration ASSESSMENT/PLAN: 41 year old [place] Citizen M with PMHx of HIV on HAART, history of latent TB (treated [place] ), [place] presented to ER from HIV clinic due to abnormal CXR, found to have bilateral interstitial infiltrates with cavitary lesion. # Active TB Quantiferon+, Sputum +MTB complex, s/p bronch 09/07 - Tx started 09/08 (Rifabutin, INH, B6, PZA, Ethambutol), no side sfx, LFTs stable, has 1 negative sputum so far, needs 3 # HIV - HAART meds Truvada + Isentress (we dont carry Tivicay) # Constipation - PRN miralax and colace # FEN - No IVF, elect stable, Regular diet w/ Ensure # PPx - Lovenox SQD # Dispo - Infection control and [facility] are on the case, [facility] needs to visit his future residence, will determine dispo Ita Snowden MD - PGY1 Internal Medicine
--- NOTE | 2017-09-20 10:03 | PN ---
Progress Note (short form) - Note Progress Note: PULMONARY Denies fevers or chills. No cough. Last Vital Signs Temp Pulse Resp BP Pulse Ox 98.2 F 66 18 90/55 100 09/20/17 06:28 09/20/17 06:28 09/20/17 06:28 09/20/17 06:28 09/19/17 21:00 Gen: NAD at rest Heart: RRR Lung: scattered basilar rales Abd: soft, nontender Ext: no edema CBC, BMP 09/08/17 05:25 09/10/17 05:35 Active Medications Docusate Sodium (Colace -) 300 mg PO HS PRN PRN Reason: CONSTIPATION Emtricitabine/Tenofovir (Truvada) 1 tab PO DAILY [facility] Last Admin: 09/19/17 09:48 Dose: 1 tab Ethambutol HCl (Myambutol -) 800 mg PO DAILY [facility] Last Admin: 09/19/17 09:51 Dose: 800 mg Isoniazid (Inh -) 300 mg PO DAILY [facility] Last Admin: 09/19/17 09:50 Dose: 300 mg Polyethylene Glycol (Miralax (For Daily Use) -) 17 gm PO DAILY PRN PRN Reason: CONSTIPATION Pyrazinamide (Pyrazinamide -) 1,250 mg PO DAILY [facility] Last Admin: 09/19/17 09:48 Dose: 1,250 mg Pyridoxine HCl (Vitamin B6 -) 50 mg PO DAILY [facility] Last Admin: 09/19/17 09:52 Dose: 50 mg Raltegravir (Isentress -) 400 mg PO BID [facility] Last Admin: 09/19/17 21:14 Dose: 400 mg Rifabutin (Mycobutin -) 300 mg PO DAILY [facility] Last Admin: 09/19/17 09:52 Dose: 300 mg A/P Pulmonary TB HIV - continue antibiotics - last 3 sputum samples with negative smear - awaiting [facility] clearance for discharge - will need outpt f/u of chest imaging to ensure resolution of infiltrates Problem List - Problems (1) Pneumonia Code(s): J18.9 - PNEUMONIA, UNSPECIFIED ORGANISM (2) HIV (human immunodeficiency virus infection) Code(s): Z21 - ASYMPTOMATIC HUMAN IMMUNODEFICIENCY VIRUS INFECTION STATUS
[2017-09-20] MEDS: ENOXAPARIN NA (PORCINE) 40 MG/0.4 ML DISP.SYRIN SQ SCH ×2 (10:05→10:10)
[2017-09-20] MEDS: EMTRICITABINE 200MG/TENOFOVIR 300MG PO SCH (10:05)
[2017-09-20] MEDS: PYRIDOXINE HCL (B-6) 50 MG TABLET (FP) PO SCH (10:05)
[2017-09-20] MEDS: ISONIAZID 300 MG TABLET (FP) PO SCH (10:06)
[2017-09-20] MEDS: RALTEGRAVIR POTASSIUM 400 MG TAB PO SCH (10:06)
[2017-09-20] MEDS: RIFABUTIN 150 MG CAPSULE PO SCH (10:06)
[2017-09-20] MEDS: PYRAZINAMIDE 500 MG TABLET PO SCH (10:07)
[2017-09-20] MEDS: ETHAMBUTOL HCL 400 MG TABLET PO SCH (10:07)
--- NOTE | 2017-09-20 13:28 | PN ---
Progress Note (short form) - Note Progress Note: feels well stable for d/c from ID standpoint Vital Signs Period Temp Pulse Resp BP Sys/Chacon Pulse Ox Last 24 Hr 97.7 F-98.2 F 66-72 18-20 90-91/49-55 100 cor-rrr lungs clear abd soft,nt ext no edema CBC, BMP 09/08/17 05:25 09/10/17 05:35 Current Medications Docusate Sodium (Colace -) 300 mg PO HS PRN PRN Reason: CONSTIPATION Emtricitabine/Tenofovir (Truvada) 1 tab PO DAILY [facility] Last Admin: 09/20/17 10:05 Dose: 1 tab Ethambutol HCl (Myambutol -) 800 mg PO DAILY [facility] Last Admin: 09/20/17 10:07 Dose: 800 mg Isoniazid (Inh -) 300 mg PO DAILY [facility] Last Admin: 09/20/17 10:06 Dose: 300 mg Polyethylene Glycol (Miralax (For Daily Use) -) 17 gm PO DAILY PRN PRN Reason: CONSTIPATION Pyrazinamide (Pyrazinamide -) 1,250 mg PO DAILY [facility] Last Admin: 09/20/17 10:07 Dose: 1,250 mg Pyridoxine HCl (Vitamin B6 -) 50 mg PO DAILY [facility] Last Admin: 09/20/17 10:05 Dose: 50 mg Raltegravir (Isentress -) 400 mg PO BID [facility] Last Admin: 09/20/17 10:06 Dose: 400 mg Rifabutin (Mycobutin -) 300 mg PO DAILY [facility] Last Admin: 09/20/17 10:06 Dose: 300 mg a/p pulmonary tb- cleared by d/c by [facility], f/u with them has been arranged would switch to truvada/tivicay for HIV meds one month f/u at [facility] d/w patient d/w Dr Quintero
--- NOTE | 2017-09-20 14:52 | PN ---
Physical Exam: SUBJECTIVE: Patient seen and examined AT BEDSIDE. DENIES ANY NEW COMPLAINTS , NO ACUTE EVENTS OER NIGHT, PENDING DISCHARGED . OBJECTIVE: Vital Signs Period Temp Pulse Resp BP Sys/Chacon Pulse Ox Last 24 Hr 97.7 F-98.2 F 66-72 18-20 90-91/49-55 99-100 GENERAL: Awake, alert, and fully oriented, in no acute distress. HEAD: Normal with no signs of trauma. EYES: sclera anicteric, conjunctiva clear. EARS, NOSE, THROAT: Moist mucous membranes. LUNGS: Breath sounds equal, clear to auscultation bilaterally. No wheezes, and no crackles. No accessory muscle use. HEART: Regular rate and rhythm, normal S1 and S2 without murmur, rub or gallop. ABDOMEN: Soft, nontender, not distended, normoactive bowel sounds, no guarding, no rebound. LOWER EXTREMITIES:warm, well-perfused. No calf tenderness. No peripheral edema. NEUROLOGICAL: good mentation, no focal deficit SKIN: Warm, dry, no rashes or lesions noted. Active Medications Generic Name Dose Route Start Last Admin Trade Name Freq PRN Reason Stop Dose Admin Docusate Sodium 300 mg 09/13/17 06:45 Colace - PO HS PRN CONSTIPATION Emtricitabine/Tenofovir 1 tab 09/08/17 10:00 09/20/17 10:05 Truvada PO 1 tab DAILY SINDY Administration Ethambutol HCl 800 mg 09/08/17 12:00 09/20/17 10:07 Myambutol - PO 800 mg DAILY SINDY Administration Isoniazid 300 mg 09/08/17 12:00 09/20/17 10:06 Inh - PO 300 mg DAILY SINDY Administration Polyethylene Glycol 17 gm 09/13/17 06:44 Miralax (For Daily Use) - PO DAILY PRN CONSTIPATION Pyrazinamide 1,250 mg 09/08/17 11:45 09/20/17 10:07 Pyrazinamide - PO 1,250 mg DAILY SINDY Administration Pyridoxine HCl 50 mg 09/08/17 12:00 09/20/17 10:05 Vitamin B6 - PO 50 mg DAILY SINDY Administration Raltegravir 400 mg 09/09/17 22:00 09/20/17 10:06 Isentress - PO 400 mg BID SINDY Administration Rifabutin 300 mg 09/09/17 10:00 09/20/17 10:06 Mycobutin - PO 300 mg DAILY SINDY Administration ASSESSMENT/PLAN: 41 year old [place] M with PMHx of HIV on HAART, history of latent TB ([place] ), [place] presented [place] HIV clinic due to abnormal CXR, found to have bilateral interstitial infiltrates with cavitary lesion. # Active TB - CLEARED TO GO HOME , WILL BE FOLOWED BY [facility] - Quantiferon+, Sputum +MTB complex, s/p bronch 09/07, [facility] notified - Tx started 09/08 (Rifabutin, INH, B6, PZA, Ethambutol), no side efx, LFTs stable - 3rd AFB is negative today # HIV - HAART meds Truvada + Isentress (we dont carry Tivicay) - WILL BE SWITCH TO TRUVADA AND TIVICAY AT HOME. # Dispo - PATIENT IS SLEARED FROM THE ID STANDPOINT -ONE MONTH FOLLOW UP WITH [facility] -LFTS TO BE FOLLOWED BY [facility] - [facility] WILL FOLLOW ISOLATION REQUIRMENTS AT PATIENT LIVINGS Problem List - Problems (1) HIV disease Code(s): B20 - HUMAN IMMUNODEFICIENCY VIRUS [HIV] DISEASE (2) Tuberculosis Code(s): A15.9 - RESPIRATORY TUBERCULOSIS UNSPECIFIED
--- NOTE | 2017-09-20 17:57 | DS ---
Physical Exam: SUBJECTIVE: Patient seen and examined. No CP, no SOB, no fevers, no chills, no cough. No joint pain, abd pain, nausea, vomitting, vision changes. OBJECTIVE: Vital Signs Period Temp Pulse Resp BP Sys/Chacon Pulse Ox Last 24 Hr 98.2 F 66 18 90/55 99-100 PHYSICAL EXAM GEN: AAOx3, NAD, lying comfortably in bed HEENT: PERRLA, EOMi CV: S1, S2, RRR LUNG: CTAB: ABD: Soft, NT, ND, normoactive BS MSK: No edema, no erythema NEURO: No sensation or MSK deficits LABS Laboratory Last Values WBC 5.7 K/mm3 (4.0-10.0) D 09/08/17 05:25 RBC 4.47 M/mm3 (4.00-5.60) 09/08/17 05:25 Hgb 11.4 GM/dL (11.7-16.9) L 09/08/17 05:25 Hct 35.7 % (35.4-49) 09/08/17 05:25 MCV 79.8 fl (80-96) L 09/08/17 05:25 MCH 25.6 pg (25.7-33.7) L 09/08/17 05:25 MCHC 32.0 g/dl (32.0-35.9) 09/08/17 05:25 RDW 15.3 % (11.9-15.9) 09/08/17 05:25 Plt Count 321 K/MM3 (134-434) 09/08/17 05:25 MPV 7.2 fl (7.5-11.1) L 09/08/17 05:25 Sodium 137 mmol/L (136-145) 09/10/17 05:35 Potassium 4.7 mmol/L (3.5-5.1) 09/10/17 05:35 Chloride 102 mmol/L (98-107) 09/10/17 05:35 Carbon Dioxide 30 mmol/L (21-32) 09/10/17 05:35 Anion Gap 5 (8-16) L 09/10/17 05:35 BUN 19 mg/dL (7-18) H 09/10/17 05:35 Creatinine 1.3 mg/dL (0.7-1.3) 09/10/17 05:35 Creat Clearance w eGFR > 60 (>60) 09/10/17 05:35 POC Glucometer 88 UNITS (()) 09/14/17 15:51 Random Glucose 78 mg/dL (74-106) 09/10/17 05:35 Calcium 9.2 mg/dL (8.5-10.1) 09/10/17 05:35 Total Bilirubin 0.2 mg/dL (0.2-1.0) D 09/14/17 06:40 Direct Bilirubin < 0.1 mg/dL (0.0-0.2) 09/14/17 06:40 AST 38 U/L (15-37) H D 09/14/17 06:40 ALT 50 U/L (12-78) D 09/14/17 06:40 Alkaline Phosphatase 137 U/L (45-117) H 09/14/17 06:40 C-Reactive Protein 3.1 MG/DL (0.00-0.3) H D 09/06/17 05:55 Total Protein 6.6 g/dl (6.4-8.2) 09/14/17 06:40 Albumin 2.8 g/dl (3.4-5.0) L 09/14/17 06:40 Urine Histoplasma Ag <0.5 09/05/17 16:30 Strongyloides IgG Ab Negative (Negative) 09/06/17 05:55 TB Test (QFT) Positive (Negative) H 09/07/17 12:10 HOSPITAL COURSE: Date of Admission:09/05/17 Date of Discharge: 09/20/17 Briefly, Mr Fuentes is a 41 year old man with HIV on HAART and positive PPD, was referred by his PCP for abnormal chest x-ray. The patient complained of dry cough for the past year that has progressively worsened during the past 2 weeks. He had associated night sweats and associated 15 lb weight loss. He recently visited [facility] for 10 days. States he was compliant with his HIV medications. He was found to have a cavitary lesion on chest imaging, and later AFB smears were positive for TB. He was treated with Rifabutin, Isoniazid, Pyrazinamide, Ethambutol, Vitamin B6. Infection control and [facility] were notified. The [facility] screened his new residence and after three negative AFB smears post-treatment, the patient was able to be discharged. Overall vital signs stayed within normal limits during the hospitalization. His LFTs were stable. His HAART regimen was switched with Infectious Disease on board. He will be discharged on Truvada and Tivicay. He will follow up with the TB Clinic in the [place] and with a spring encaser to work on his case. Minutes to complete discharge: 45 Discharge Summary Reason For Visit: TUBERCULOSIS; COUGH Condition: Good - Instructions Diet, Activity, Other Instructions: RECOMMENDATIONS - You have been diagnosed with active tuberculosis - You will be following with the TB clinic [place], and be in contact with your Project Coach there - If you experience dizziness, flu-like symptoms, joint pain, vision changes , yellowing of the skin or eyes, please inform your providers at the TB Clinic - Please bring your with you to the TB Clinic to be tested - Please avoid crowded places until the Department of Health says it is okay NEW MEDICATIONS - Rifabutin 300mg QD 1 tablet daily - Isoniazid 300mg 1 tablet daily - Pyrazinamide 1,250mg 1 tablet daily - Ethambutol 800mg 1 tablet daily - Vitamin B6 50mg 1 tablet daily - Tivicay 50mg 1 tablet daily and continue taking your Truvada daily FOLLOWUPS: - [facility] - TB Clinic in 1 week, you will get the rest of your medications there, they will also monitor your liver enzymes periodically If you experience any serious symptoms like severe chest pain and shortness of breath, please return to the Emergency Department Disposition: HOME - Home Medications Comprehensive Discharge Medication List: Ambulatory Orders Emtricitabine/Tenofovir [Truvada -] 1 tab PO DAILY #30 tablet 05/30/17 Dolutegravir Sodium [Tivicay] 50 mg PO DAILY #30 tablet 09/20/17 Ethambutol HCl [Myambutol -] 800 mg PO DAILY #7 tablet 09/20/17 Isoniazid [Nydrazid -] 300 mg PO DAILY #7 tablet 09/20/17 Pyrazinamide - 1,250 mg PO DAILY #7 tablet 09/20/17 Pyridoxine HCl (B-6) [Vitamin B6 -] 50 mg PO DAILY #7 tablet 09/20/17 Rifabutin [Mycobutin -] 300 mg PO DAILY #7 tab 09/20/17 This patient is new to me today: No Emergency Visit: No Critical Care patient: No - Discharge Referral Referred to [facility] Med P.C.: No
--- NOTE | 2017-09-20 20:34 | PN ---
Teaching Attending Note Name of Resident: Ita Snowden ATTENDING PHYSICIAN STATEMENT I saw and evaluated the patient. I reviewed the resident's note and discussed the case with the resident. I agree with the resident's findings and plan as documented. SUBJECTIVE: OBJECTIVE: Vital Signs Period Temp Pulse Resp BP Sys/Chacon Pulse Ox Last 24 Hr 98.2 F 66 18 90/55 99-100 ASSESSMENT AND PLAN:
== END 2017-09-20 16:48 | disposition home or self-care (01) | DRG 179 ==
LOC: JER 14:10 → JERBED 16:03 → J4W 09-06 19:30 → J8W 09-16 16:51
PROVIDERS: ADMIT Internal Medicine; ATTEND Internal Medicine
PROC: 0BD88ZX Extraction of Left Upper Lobe Bronchus, Via Natural or Artificial Opening Endoscopic, Diagnostic (ICD-10-PCS; 2017-09-07)
PROC: 0BDG8ZX Extraction of Left Upper Lung Lobe, Via Natural or Artificial Opening Endoscopic, Diagnostic (ICD-10-PCS; principal; 2017-09-07 13:00)
DX: A15.0 Tuberculosis of lung (principal); Z21 Asymptomatic human immunodeficiency virus [HIV] infection status; K59.00 Constipation, unspecified; J18.9 Pneumonia, unspecified organism; I95.9 Hypotension, unspecified
CPT/HCPCS: 36415; 71010-TC; 71250-TC; 76000-TC; 80048; 80053; 80076; 85027; 86140; 86480; 86682; 87102; 87116; 87206; 87210; 87385; 87556; 87899; 88104; 88305-TC; 93005; 93010; 94760; 99284-25; J1644